=== PATIENT | female | born 1945 | race Caucasian/White ===

== ENCOUNTER → 2018-01-13 10:05 | Outpatient (CLI) | payer MEDICARE, SELFPAY ==
[2018-01-13 12:47] LABS: Abs Immature Grans 0.02 k/cumm (0.0-0.09); Absolute Basophil Count 0.03 k/cumm (0.0-0.2); Absolute Eosinophil Count 0.48 k/cumm (0.0-0.7); Absolute Lymphocyte Count 2.82 k/cumm (1.2-3.4); Absolute Monocyte Count 0.79 k/cumm (0.11-0.7); Absolute Neutrophil Count 3.36 k/cumm (1.2-6.7); Basophils % 0.4; Eosinophils % 6.4; HCT 36.7 % (36.0-46.0); HGB 12.4 g/dL (12.0-15.5); Immature Grans % 0.3; Lymphocytes % 37.6; Mean Corp. HGB Concentration 33.8 g/dL (32.0-36.0); Mean Corpuscular Hemoglobin 33.2 pg (27.0-33.0); Mean Corpuscular Volume 98.1 fL (80-95); Mean Platelet Volume 9.7 fL (8.0-11.0); Monocytes % 10.5; Neutrophils % 44.8; Platelet Count 328 x1000/uL (130-400); RBC 3.74 m/cumm (4.00-5.20); RBC Distribution Width 12.7 % (11.7-14.6)
[2018-01-13 13:28] LABS: ALT 13 U/L (12-78); AST 23 U/L (15-37); Albumin 4.6 g/dL (3.4-5.0); Alkaline Phosphatase 102 U/L (46-116); Anion Gap 8.3 mmol/L (3-11); BUN 8 mg/dL (7-18); Bilirubin, Total 0.6 mg/dL (0.2-1.0); CO2 27.7 mmol/L (21.0-32.0); CREATININE 0.67 mg/dL (0.55-1.02); Calcium 9.1 mg/dL (8.5-10.1); Chloride 93 mmol/L (98-107); Glucose 95 mg/dL (70-100); Potassium 4.9 mmol/L (3.5-5.1); Sodium 129 mmol/L (136-145); TSH 0.94 uIU/mL (0.358-3.74); Total Protein 7.4 g/dL (6.4-8.2); Vitamin B12 346 pg/mL (193-986)
[2018-01-13 13:40] LABS: ESR 6 MM/HR (0-30)
[2018-01-15 14:40] LABS: Lyme Ab w Rflx to Lyme Confirm Negative
== END ==
PROVIDERS: PCP Family Medicine; Visit Provider Family Medicine
DX: R53.83 Other fatigue (principal); R63.4 Abnormal weight loss; I10 Essential (primary) hypertension
CPT/HCPCS: 36415; 80053; 85652; 82607; 82728; 83540; 84443; 85025; 86618

== ENCOUNTER → 2018-01-20 01:38 | Outpatient (CLI) | payer MEDICARE, SELFPAY ==
--- NOTE | 2018-01-20 12:41 | SCREENCT_ITS ---
SYMPTOMS/DIAGNOSIS: ENCOUNTER FOR SCREENING, Z13.9, CURRENT SMOKER, Z87.891 CT SCAN OF THE CHEST: CT scan of the chest was performed according to the lung cancer screening protocol. There are no priors for comparison. There is atherosclerosis of the thoracic aorta, but no aneurysmal dilatation is seen. The heart size is within normal limits. There is a small pericardial effusion or pericardial thickening present. Coronary artery calcifications are present. No significant mediastinal, axillary or hilar adenopathy is seen on this noncontrast examination. No pleural effusion is identified. Moderate central lobular emphysematous changes are present in the lungs. Non noncalcified pulmonary nodules are present. No acute infiltrates are seen. The tracheobronchial tree appears grossly unremarkable. No pneumothorax is present. Degenerative changes are seen in the spine. There is a right convex scoliosis of the thoracic spine noted. Upper abdominal images show a nonobstructing stone in the upper pole of the left kidney. IMPRESSION: No pulmonary nodules identified. Category 1. Lung-RAD Category: 1- Negative Lung- RAD Management of Findings: Continue annual LDCT screening in 12 months
== END ==
PROVIDERS: PCP Family Medicine; Visit Provider Family Medicine
DX: Z12.2 Encounter for screening for malignant neoplasm of respiratory organs (principal); F17.200 Nicotine dependence, unspecified, uncomplicated
CPT/HCPCS: G0297

== ENCOUNTER 2018-02-10 02:07 | Outpatient (CLI) | payer MEDICARE, SELFPAY ==
[2018-02-10 13:16] LABS: Anion Gap 9.5 mmol/L (3-11); BUN 7 mg/dL (7-18); CO2 27.5 mmol/L (21.0-32.0); CREATININE 0.59 mg/dL (0.55-1.02); Calcium 9.3 mg/dL (8.5-10.1); Chloride 92 mmol/L (98-107); Glucose 98 mg/dL (70-100); Potassium 4.6 mmol/L (3.5-5.1); Sodium 129 mmol/L (136-145)
[2018-02-10 13:18] LABS: Bilirubin Negative (Negative); Blood Trace-lysed (Negative); Clarity Clear; Glucose Negative (Negative); Ketones Negative (Negative); Leukocyte Esterase Small (Negative); Nitrite Negative (Negative); Urobilinogen 0.2 EU/dL (Up TO 0.2)
[2018-02-10 13:28] LABS: Epithelial Cells Few HPF (Negative); RBC 0-2 (0-2); WBC 20-50 HPF (0-5)
[2018-02-10 13:29] LABS: Bacteria Few HPF (Negative); C & S Indicated? Yes; Casts Negative LPF (Negative); Crystals Negative HPF (Negative); Mucus Negative (Negative); Other Cells Moderate Renal (Negative)
[2018-02-12 08:43] LABS: Lyme Ab w Rflx to Lyme Confirm Negative
== END 2018-02-10 02:27 ==
PROVIDERS: PCP Family Medicine; Visit Provider Family Medicine
DX: R53.83 Other fatigue (principal); E87.1 Hypo-osmolality and hyponatremia
CPT/HCPCS: 36415; 80048; 81003; 81015; 86618; 87086

== ENCOUNTER 2018-10-05 08:19 | Day surgery (SDC) | payer MEDICARE, SELFPAY ==
--- NOTE | 2018-10-04 18:00 | POEE_ITS ---
History of Present Illness Chief Complaint: Progressive decreased vision, right eye Narrative: The patient is a 73-year old lady with history of progressive decreased vision in her right eye at both distance and near. She notes this has become significantly worse. On examination she was noted to have moderate nu clear and cortical cataract of the right eye with best corrected vision of 2039 with significant glare disability. 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 She is significantly symptomatic from decreased vision OD that she desires cataract surgery and attempt to improve and maximize her vision. NOTE: The Chief Complaint, HPI, Past Medical History, Past Surgical History, Family History, Social History, Medications, and complete Ophthalmic Exam with detailed Assessment and Plan have already been documented in the patient's outpatient ophthalmic record and are not covered again in detail here. [facility] Medical History Cataract (Chronic) Surgical History History of basal cell carcinoma (BCC) excision (Acute) History of esophagogastroduodenoscopy (EGD) (Chronic) History of tubal ligation (Chronic) Social History Smoking/Tobacco Use Status: Current every day Tobacco Type: cigarettes Drug use: Never Substance use type: does not use Household members: spouse and other Pets and animals: Yes Pets and animals: dog(s) What type of physical activity do you participate in: none Special lissy needs: No Do you feel safe at home: Yes Do you feel safe in your relationship?: Yes Meds Home Medications Medication Instructions Recorded Confirmed Type acetaminophen [Mapap Extra 1 tab PRN PRN 09/06/14 10/01/18 History Strength] lisinopril 10 mg PO DAILY #90 tab-cap 07/03/17 10/01/18 Rx lutein mg PO DAILY 10/01/18 History Allergies Allergy/AdvReac Type Severity Reaction Status Date / Time Penicillins Allergy Unknown Unverified 10/01/18 13:04 Exam OCULAR EXAM:: Most recent ocular examination is significant for best corrected vision of 20/40 OD, 20/400 OS. Intraocular pressure is 12 OD, 13 OS. Extraocular motility is normal. Slit-lamp examination is significant for pupils dilating to 5.5 mm OU. 2+ nuclear/cortical cataract OU. Dilated funduscopic examination shows disc cupping of 0.2 OD 0.1 OS with normal vessels. Macular drusen are present OU. There is scarring and atrophy of the superior central macula in the left eye. Peripheral retina and vitreous is normal. BRIGHTNESS ACUITY TESTING (BAT):: Brightness acuity testing of the right eye office 20/40. On the low setting is 20/60. On the medium setting is 20/200. On the high setting is less than 20/400. Assessment and Plan (1) Nuclear sclerotic cataract of right eye: Current visit: No Status: Acute Assessment: Visually significant cataract, right eye. Plan: Cataract extraction with intraocular lens implantation, right eye (2) Cortical cataract of right eye: Current visit: No Status: Acute Assessment: Visually significant cataract, right eye. Plan: Cataract extraction with intraocular lens implantation, right eye Note: NOTE:: The details of the planned surgery, including the risks, indications,limitations,expectations,outcome and possible complications were explained to the patient. The patient understands the complications including, but not limited to: infection, hemorrhage, posterior dislocation of the lens or nuclear fragments which may require the intervention of a vitreoretinal surgeon, possible loss of the eye, or from anesthetic complications. The patient has been made aware of the option of not having surgery, that vision following surgery may not be equal to that prior to surgery, and that the planned surgery may not achieve the intended results. Following this discussion, which the patient appeared to understand, the patient wishes to proceed with cataract surgery with lens implantation of the affected eye to improve and maximize vision.
--- NOTE | 2018-10-05 07:22 | W.PM.DSUDISC ---
Discharge Plan Disposition Patient Disposition: HOME Condition: Stable Discharge Details Attending Provider: Danny Mac Primary Care Provider: Savannah Baez Home Meds and New Rx's Prescriptions: No Action lisinopril 10 MG tablet 10 mg PO DAILY Qty: 90 RF: 4 acetaminophen [Mapap Extra Strength] 500 MG tablet 1 tab PRN PRNRF: 0 lutein 6 mg Capsule PO DAILY RF: 0 Discharge Instructions Stand Alone Forms: Post-op Topical Cataract, Kelsey Spicer (DSU) Discharge Orders Discharge Orders: Discharge Order (Routine); Ordered 10/05/18 Ordered By: Danny Mac DS: Diagnosis Discharge Diagnosis (1) Nuclear sclerotic cataract of right eye: Status: Resolved (2) Cortical cataract of right eye: Status: Resolved (3) Status post cataract extraction and insertion of intraocular lens of right eye: Status: Chronic
--- NOTE | 2018-10-05 07:23 | W.PM.OP ---
Date of service: 10/05/18 Time of Service: 10:23 Operative Note PRE-OP DIAGNOSIS: Cataract, right eye PROCEDURE: Cataract extraction using phacoemulsification with intraocular lens implant, right eye SURGEON: Danny Mac ANESTHESIA: MAC and local (sub-tenon's anesthetic infiltration) ESTIMATED BLOOD LOSS: 0 PATHOLOGY: none sent COMPLICATIONS: None Patient was transported to: same day Patient's condition: stable Implants: Eleazar and [employer] / [employer] Tecnis [id number] intraocular lens Indications: Progressive decreased vision due to cataract, right eye Procedure Description: CATARACT SURGERY OPERATIVE REPORT PREOPERATIVE DIAGNOSIS: Nuclear/cortical cataract, right eye POSTOPERATIVE DIAGNOSIS: Same OPERATION: Cataract extraction using phacoemulsification with posterior chamber intraocular lens implant, right eye. IOL: IOL Patternmaker Helper/Model: [employer] / DAVID Tecnis ZCB00 IOL Power: + 22.0 diopters IOL Serial Number: [id number] Optic Diameter: 6.0mm Haptic/Overall Diameter: 13.0mm PHACO INFO: Nicolás [employer] Vision System with OZil and Active Fluidics Cumulative Dispersed Energy (CDE): 13.01 seconds SURGEON: Danny Mac MD, [place] ANESTHESIA: Monitored Anesthesia Care (MAC), with local sub-tenon's anesthetic infiltration COMPLICATIONS: None SPECIMENS: None INDICATIONS FOR PROCEDURE: The patient is a 73-year-old lady with history of diminished visual acuity in her right eye secondary to the development of nuclear and cortical cataract. She has poor central visual acuity in her left eye secondary to branch vein occlusion/macular edema with central macular scar. The option of cataract surgery in her right eye was offered to the patient and she wished to proceed. PROCEDURE: The correct surgical eye was identified and marked as the right eye and the pupil was dilated in the preoperative area using mydriatics and cycloplegics. The dilated pupil size was 7.0 mm. No sedation was given, per patient preference. The patient was brought to the operating room where cardiopulmonary monitoring was instituted and surgical time-out was performed, confirming the correct operative eye and IOL power. Topical anesthesia was administered and ophthalmic povidone-iodine 5% was instilled into the conjunctival fornices. Lidocaine gel was applied to the cornea and the madisyn-ocular area was prepped with Betadine 10% solution and draped in the usual sterile fashion for intraocular surgery, including an aperture drape. A Tegaderm transparent film dressing was cut in half and used to cover the lashes and lid margins. Care was taken to sequester the lashes and lid margins under the Tegaderm dressing. A lid speculum was placed between the lids of the operative eye and the Bryce-Nima operating microscope was maneuvered into position. Shannan scissors were then used to make a conjunctival buttonhole approximately 6mm posterior to the limbus in the inferonasal quadrant. Blunt dissection was carried out to expose bare sclera, and a blunt-tipped sub-tenon?s anesthesia cannula was introduced and passed posteriorly along the globe where non-preserved plain lidocaine was injected into posterior sub-Tenon?s space. A sideport knife was used to make a paracentesis port inferiortemporally, and the anterior chamber was filled with Healon GV. A 2.4mm keratome knife was used to create a half-thickness groove at the limbus and then to construct a three-plane near-clear corneal tunnel extending 2.0mm into clear cornea in the superiortemporal position. . A flap was raised on the anterior capsule and capsulorhexis forceps were used to complete a continuous curvilinear capsulorhexis of 5.0 mm. Balanced salt solution was then used to perform cortical cleaving hydrodissection and nuclear hydrodelineation until the lens could be freely rotated within the capsular bag. The lens nucleus was then disassembled and removed within the capsular bag and iris plane using phacoemulsification. Residual cortical material was removed using the I/A handpiece. The posterior capsule was carefully polished to remove as much residual lens epithelial cells as safely possible. The capsular bag was then inflated and the anterior chamber deepened with viscoelastic. The lens implant described above was inserted into the capsular bag using the DAVID [place] Injector. A Kuglen hook was used to dial the IOL into position. Residual viscoelastic was then removed first from posterior to the IOL, then from the anterior chamber using the I/A handpiece. The lens implant was noted to center nicely within the capsular bag. The incisions were stromally hydrated, and the anterior chamber was reformed using BSS. Then 0.4cc of moxifloxacin 1.5mg/ml were injected into the capsular bag and anterior chamber. The incisions were checked with a Weck spear and found to be secure. Several drops of ophthalmic povidone-iodine 5% were then applied to the eye followed by two drops of Imprimis combination prednisolone/gatifloxacin/bromfenac solution. The drapes were removed and a clear plastic protective eye shield was placed over the eye. The patient was then returned to [facility] in stable condition.
[2018-10-05 08:35] VITALS: BP 141/76; PULSE 82; RESP 18; TEMP 35.6; O2SAT 94
[2018-10-05] MEDS: Tropicam./Phenyleph. (1/2.5%) 5 ML BTL OD ×3 (08:53→09:01)
[2018-10-05] MEDS: Tetracaine 0.5% 4 ML BTL OD ×4 (08:54→09:47)
[2018-10-05] MEDS: Povidone-Iodine Ophth 30 ML BTL ×2 (09:47→10:15)
[2018-10-05] MEDS: Lidocaine 2% Jelly 6 ML SYR (09:47)
[2018-10-05] MEDS: Balanced Salt Soln.-PLUS 500 ML BAG (09:54)
[2018-10-05] MEDS: Lidocaine 1% Pres-Free 5 ML VIAL (09:55)
== END 2018-10-05 11:00 | disposition home or self-care (01) ==
LOC: SUR 08:19
PROVIDERS: PCP Family Medicine; Visit Provider Ophthalmology
PROC: (CPT 66984; principal; 2018-10-05 10:30)
DX: H25.811 Combined forms of age-related cataract, right eye (principal); I10 Essential (primary) hypertension; F17.210 Nicotine dependence, cigarettes, uncomplicated
CPT/HCPCS: 66984; V2632

== ENCOUNTER 2019-01-19 01:25 | Outpatient (CLI) | payer MEDICARE, SELFPAY ==
[2019-01-19 12:33] LABS: Absolute Basophil Count 0.03 k/cumm (0.0-0.2); Basophils % 0.5; Mean Corp. HGB Concentration 34.9 g/dL (32.0-36.0); Monocytes % 9.8
[2019-01-19 13:09] LABS: Abs Immature Grans 0.01 k/cumm (0.0-0.09); Absolute Eosinophil Count 0.07 k/cumm (0.0-0.7); Absolute Lymphocyte Count 2.57 k/cumm (1.2-3.4); Absolute Monocyte Count 0.65 k/cumm (0.11-0.7); Eosinophils % 1.1; HCT 37.3 % (36.0-46.0); Immature Grans % 0.2; Lymphocytes % 38.8; Mean Corpuscular Volume 97.6 fL (80-95); Mean Platelet Volume 9.7 fL (8.0-11.0); Neutrophils % 49.6; Platelet Count 375 x1000/uL (130-400); RBC 3.82 m/cumm (4.00-5.20); RBC Distribution Width 11.3 % (11.7-14.6); White Blood Cell Count 6.62 k/cumm (4.4-10.8)
[2019-01-19 13:10] LABS: Absolute Neutrophil Count 3.28 k/cumm (1.2-6.7)
[2019-01-19 13:33] LABS: Iron 140 ug/dL (50-175); Total Iron Binding Capacity 324 ug/dL (250-450); Transferrin Sat 43 % (15-50)
[2019-01-19 13:43] LABS: Bilirubin Negative (Negative); Blood Trace-intact (Negative); Clarity Clear (Clear); Glucose Negative (Negative); Ketones Negative (Negative); Leukocyte Esterase Small (Negative); Nitrite Negative (Negative); Urobilinogen 0.2 EU/dL (Up TO 0.2); pH 5.5 (5-8)
[2019-01-19 14:11] LABS: ALT 16 U/L (14-59); AST 20 U/L (15-37); Albumin 4.5 g/dL (3.4-5.0); Alkaline Phosphatase 76 U/L (46-116); Anion Gap 10.2 mmol/L (3-11); BUN 7 mg/dL (7-18); Bilirubin, Total 0.5 mg/dL (0.2-1.0); CO2 26.8 mmol/L (21.0-32.0); CREATININE 0.64 mg/dL (0.55-1.02); Calcium 9.5 mg/dL (8.5-10.1); Chloride 90 mmol/L (98-107); Ferritin 289 ng/mL (8-388); Folate 13.6 ng/mL (8.6-20.0); Glucose 119 mg/dL (70-100); Potassium 4.5 mmol/L (3.5-5.1); Sodium 127 mmol/L (136-145); Total Protein 7.4 g/dL (6.4-8.2); Vitamin B12 300 pg/mL (193-986)
[2019-01-19 14:35] LABS: Epithelial Cells Many HPF (Negative); Other Cells Mod Transitional (Negative); RBC 0-2 (0-2); WBC 20-50 HPF (0-5)
[2019-01-19 14:36] LABS: Bacteria Many HPF (Negative); C & S Indicated? No/Sq. Contamination; Casts Negative LPF (Negative); Crystals Negative HPF (Negative); Mucus Trace (Negative)
[2019-01-20 13:57] LABS: Albumin 66.8 % (55.8-66.1); Total Protein 7.5 g/dl (6.3-8.2)
== END 2019-01-19 01:45 ==
PROVIDERS: PCP Family Medicine; Visit Provider Family Medicine
DX: D75.89 Other specified diseases of blood and blood-forming organs (principal); C44.311 Basal cell carcinoma of skin of nose; R42 Dizziness and giddiness; G62.9 Polyneuropathy, unspecified; R63.4 Abnormal weight loss; I10 Essential (primary) hypertension; R71.8 Other abnormality of red blood cells
CPT/HCPCS: 36415; 80053; 81003; 81015; 82607; 82728; 82746; 83540; 83550; 84165; 85025

== ENCOUNTER 2019-04-15 12:16 | Emergency (ER) | payer MEDICARE, SELFPAY ==
[2019-04-15 12:24] VITALS: BP 161/62; PULSE 84; RESP 16; TEMP 36.2; O2SAT 97
--- NOTE | 2019-04-15 13:02 | DI.RAD_ITS ---
EXAM: XR LUMBAR SPINE COMPLETE INDICATION: pain, lower back r/o compression fracture. COMPARISON: CHEST - LUNG CANCER SCREENING from 01/20/2018 TECHNIQUE: 2D digital imaging was performed. FINDINGS: There is extensive atherosclerosis of the abdominal aorta. There are superior compression deformities of the L1, L2, and L3 vertebral bodies. These are age ind eterminate. There is scoliosis of the thoracolumbar spine. No spondylolysis or spondylolisthesis is seen. The sacrum is not well visualized due to overlying bowel. There are mild degenerative change s in the lumbar spine. IMPRESSION: 1. Compression deformities involving the superior endplates of L1, L2 and L3. These are age indeterm inate. 2. Mild degenerative changes are seen in the lumbar spine.
[2019-04-15] MEDS: Acetaminophen 500 MG TAB 1000 MG PO (13:10)
[2019-04-15 13:26] LABS: Bilirubin Negative (Negative); Blood Trace-intact (Negative); Clarity Clear (Clear); Glucose Negative (Negative); Ketones 15 mg/dL (Negative); Leukocyte Esterase Negative (Negative); Nitrite Negative (Negative); Urobilinogen 0.2 EU/dL (Up TO 0.2); pH 5.5 (5-8)
[2019-04-15 13:41] LABS: Bacteria Few HPF (Negative); C & S Indicated? No; Casts Negative LPF (Negative); Crystals Negative HPF (Negative); Epithelial Cells Moderate HPF (Negative); Mucus Trace (Negative); Other Cells Few Transitional (Negative); WBC 0-2 HPF (0-5)
--- NOTE | 2019-04-15 15:40 | ED.GENADUL_ITS ---
Discharge Plan Disposition Patient Disposition: HOME Condition: Good Discharge Details Chief Complaint: Nk/Back Pain Clinical Impression: Compression fracture Primary Care Provider: Savannah Baez ED Provider: Sivan Avila Home Meds and New Rx's Prescriptions: New diazepam [Valium] 2 mg tablet 2 mg PO TID PRN (Reason: muscle relaxant) Qty: 10 RF: 0 No Action lisinopril 10 mg tablet 10 mg PO DAILY Qty: 90 RF: 4 acetaminophen [Mapap Extra Strength] 500 MG tablet 1 tab PRN PRNRF: 0 lutein 6 mg Capsule PO DAILY RF: 0 Discharge Instructions Additional Instructions: Ice to the area of discomfort. Use abdominal binder for discomfort. Tylenol for soreness if needed. Use muscle relaxant as prescribed with significant caution. Do not mix with alcohol, drive while taking this medication. Recheck with primary care doctor promptly for reevaluation. Follow-up with orthopedic doctor as discussed. Return for any worsening or concerns sooner if needed Referrals: Amando Curry MD [ [facility] STAFF PHYSICIAN] - Discharge Data Discharge Date/Time-TO BE ENTERED AT DEPARTURE: 04/15/19 15:52 Medical Decision Making 73-year-old patient who presents for complaints of back pain. Patient reports no specific injury or trauma. Patient cannot recall the initial onset of back pain after discussion with both daughter and patient she feels likely patient reports approximately 1 month of back pain. Patient denies any radiating pain into the legs or the groin. Patient complains only of back pain in the lumbar spine area bilaterally. Patient is noted to be moderately kyphotic. Patient is a thin petite woman. Again patient denies any obvious injury or fall. Patient denies any head or neck pain associated. Denies any fevers or chills. No u rinary complaints. No fevers or ill feeling. Patient reports normal energy otherwise. She has tried [id number] medications without relief. Patient reports a position of comfort is standing. Patient will and is able to find a position of comfort in bed however patient reports regular position changes causing difficulty sleeping. Patient does report she notices an increase in pain with change of position and range of motion. Patient denies any red flags of back pain specifically no numbness, tingling or weakness of the lower extremities. Patient does report onset of pain which did somewhat improved over several weeks and she coughed which she noted an immediate onset of return of pain in a similar distribution in the lower back. Patient describes a spastic type pain after coughing which has persisted for the last 1 to 2 weeks. X-ray of the L-spine ordered specifically to rule out compression fracture. Patient agrees with this plan of care. Xray reveals FINDINGS: There is extensive atherosclerosis of the abdominal aorta. There are superior compression deformities of the L1, L2, and L3 vertebral bodies. These are age indeterminate. There is scoliosis of the thoracolumbar spine. No spondylolysis or spondylolisthesis is seen. The sacrum is not well visualized due to overlying bowel. There are mild degenerative changes in the lumbar spine. IMPRESSION: 1. Compression deformities involving the superior endplates of L1, L2 and L3. These are age indeterminate. 2. Mild degenerative changes are seen in the lumbar spine. Spoke with Dr. Amando Curry who recommends abdominal binder, okay with muscle relaxant, will follow up with patient as an outpatient. Also recommended recheck with PCP for possible interventional radiology referral to [facility]. Patient feels comfortable plan of care. Discussed use of muscle relaxant which patient prefers. 2 mg of Valium was prescribed in small quantity. [id number] Tylenol also recommended. Conservative treatments were discussed. Follow-up with orthopedics was discussed. Alarming signs and symptoms for return were discussed. The patient was stable and requested discharge. Prior to discharge, my usual and customary return precautions were reviewed with the patient - this included follow-up instructions and reasons to return to the Emergency Department if conditions worsens, does not improve as expected, or other new concerns arise. HPI General Date/Time Provider Initiated Documentation: 04/15/19 12:20 . HPI Narrative: Is an extremely pleasant 73-year-old woman who is accompanied by her daughter who complains of 1 month of lower back pain. Patient denies any specific injury, traumas or falls. Patient reports history of back pain which typically relieves with rest. Has not experienced back pain in quite some time then noted in the last month onset of back pain. No radiating pain into the legs. No numbness, tingling or weakness. Patient has been eating and drinking without difficulty. Patient denies any urinary urgency, frequency or dysuria. Denies headache or dizziness, chest pain or difficulty breathing. Denies any abdominal pain associated. No change in bowels. No change in appetite or energy. Position of comfort is standing. Patient is able to find a comfortable position specifically when laying on her side however pain is worse with change in position or range of motion. Unrelieved with Tylenol [id number]. Patient reports she initially had pain in her lower back which somewhat improved over the course of 2 weeks then she reports coughing and back pain became significantly worse. Patient reports she felt her back spasm. Related Data Home Medications Medication Instructions Recorded Confirmed acetaminophen [Mapap Extra 1 tab PRN PRN 09/06/14 04/15/19 Strength] lutein mg PO DAILY 10/01/18 01/14/19 lisinopril 10 mg tablet 10 mg PO DAILY #90 tab-cap 10/13/18 04/15/19 diazepam [Valium] 2 mg PO TID PRN #10 tab 04/15/19 Previous Rx's Medication Instructions Recorded lisinopril 10 mg tablet 10 mg PO DAILY #90 tab-cap 10/13/18 diazepam [Valium] 2 mg PO TID PRN #10 tab 04/15/19 Allergies Allergy/AdvReac Type Severity Reaction Status Date / Time Penicillins Allergy Unknown Unverified 04/15/19 12:27 General Stated Complaint: Nk/Back Pain FRANCISCA: 3 Review of Systems All systems reviewed & are unremarkable except as noted in HPI and below Constitutional Constitutional: Denies chills, Denies fatigue, Denies fever(s), Denies frequent falls, Denies headache(s) and Denies malaise ENT Ears, Nose, Mouth, and Throat: Denies headache(s) Respiratory Respiratory: Denies cough Gastrointestinal Gastrointestinal: Denies abdominal pain, Denies nausea and Denies vomiting Musculoskeletal Musculoskeletal: Denies abnormal gait, Reports back pain, Denies numbness and Denies tingling Neurologic Neurologic: Denies abnormal gait, Denies frequent falls, Denies headache(s), Denies numbness and Denies tingling Endocrine Endocrine: Denies fatigue [facility] Medical History Cataract (Chronic) Social History Smoking/Tobacco Use Status: Current every day Tobacco Type: cigarettes Drug use: Never Substance use type: does not use Household members: spouse and other Pets and animals: Yes Pets and animals: dog(s) What type of physical activity do you participate in: none Special lissy needs: No Do you feel safe at home: Yes Do you feel safe in your relationship?: Yes Exam Narrative Exam Narrative: CONST: Healthy appearing kyphotic patient, in no acute distress. Well hydrated. Alert and alert. NECK: Normal visual inspection. FROM. No lymphadenopathy. Trachea midline. No Midline tenderness. CHEST: Normal insepection of the chest. RESP: Normal respiratory effort. Speaking full sentences. No cough. No wheezing. No retractions. Clear to auscaltation. Breath sound equal and present bilaterally. CARDIO: No JVD. Normal PMI. Regular Rate. Regular Rhythm. Normal peripheral pulses. GI: Normal inspection of abdomen. No distension. Soft. Nontender. Bowel sounds present in all 4 quadrants. No rebound. No gaurding. MUSCULOSKELETAL: Normal Gait. FROM of all extremities. Distal neurovascularly intact. Sensation intact distally. DTRs intact and equal bilaterally. Strength intact. No foot drop bilaterally. Back: No cervical or thoracic pain with palpation. No significant palpable tenderness of the lumbar spine. No obvious step-offs. Obvious kyphosis noted. Patient points to the areas of bilateral lower back as sites of pain but no associated palpable tenderness. SKIN: Normal. Dry. No rashes. NEURO: Alert and awake. Speech clear. PSYCH: Normal affect. Cooperative. Course Vital Signs Vital signs: Vital Signs Temperature 36.2 C L 04/15/19 12:24 Pulse 84 04/15/19 12:24 Respiratory Rate 16 04/15/19 12:24 Blood Pressure 161/62 H 04/15/19 12:24 Pulse Oximetry 97 04/15/19 12:24 Temperature 36.2 C L 04/15/19 12:24 Temperature Source Skin 04/15/19 12:24 Pulse 84 04/15/19 12:24 Respiratory Rate 16 04/15/19 12:24 Respiratory Effort Non-Labored 04/15/19 12:24 Blood Pressure 161/62 H 04/15/19 12:24 Blood Pressure Position Sitting 04/15/19 12:24 Pulse Oximetry 97 04/15/19 12:24 Oxygen Delivery Method Room Air 04/15/19 12:24 Oxygen Flow Rate 0 04/15/19 12:24 Pain Level 10 04/15/19 12:49 Lab/Test Results Lab/Test Results: Laboratory Tests Range/Units 04/15/19 13:13 Urine Color (Yellow) Yellow Urine Clarity (Clear) Clear Urine pH (5-8) 5.5 Ur Specific [place] (1.005-1.025) 1.020 Urine Protein (Negative) mg/dL Trace H Urine Ketones (Negative) mg/dL 15 H Urine Blood (Negative) Trace-intact H Urine Nitrite (Negative) Negative Urine Bilirubin (Negative) Negative Urine Urobilinogen (Up TO 0.2) EU/dL 0.2 Ur Leukocyte Esterase (Negative) Negative Urine RBC (0-2) HPF 3-5 H Urine WBC (0-5) HPF 0-2 Ur Epithelial Cells (Negative) HPF Moderate Urine Crystals (Negative) HPF Negative Urine Bacteria (Negative) HPF Few Urine Casts (Negative) LPF Negative Urine Mucus (Negative) Trace Urine Other (Negative) Few transitional Ur Culture Indicated? No Urine Glucose (Negative) mg/dL Negative
--- NOTE | 2019-04-15 15:52 | NUR.NOTE ---
Nursing Note: abdominal binder applied per verbal order. explained use to pt.
--- NOTE | 2019-04-15 16:40 | NUR.NOTE ---
Nursing Note: Referral faxed to PCP for follow up. Norma bardales
== END 2019-04-15 15:52 | disposition home or self-care (01) ==
PROVIDERS: Emergency Provider Physician Assistant; PCP Family Medicine
DX: M48.56XA Collapsed vertebra, not elsewhere classified, lumbar region, initial encounter for fracture (principal)
CPT/HCPCS: 99283; 72110; 81003; 81015

== ENCOUNTER 2019-05-10 01:02 | Outpatient (CLI) | payer MEDICARE, SELFPAY ==
--- NOTE | 2019-05-10 15:23 | DI.MRI_ITS ---
EXAM: MR LUMBAR SPINE WO CLINICAL HISTORY: severe low back pain/ vertebral fx L1 L2 L3 ? [age] TECHNIQUE: Multiplanar multisequence MRI was performed. COMPARISON: RENAL COLIC WO CONTRAST from 01/07/2011 XR LUMBAR SPINE COMPLETE from 04/15/2019 FINDINGS: There is mild compression of the inferior endplate of T11. There is a mild compression fracture of t he superior endplate of T12. The L1 vertebral body shows an incidental cyst. There is a mild compre ssion fracture of the superior endplate of L2. There is mild to moderate compression of the central aspect of the L3 vertebral body. L4 appears intact. There is minimal compression of the superior en dplate of L5. There is mildly increased signal in the region of the compression fractures, indicatin g subacute fractures. The discs are well maintained in height. There is no central canal stenosis o r neural foraminal narrowing. The conus medullaris appears normal. There is mild scoliosis. IMPRESSION: Multiple mild compression fractures, all of which appear subacute. The greatest compression is seen at the superior endplate centrally at L3.
== END 2019-05-10 01:22 ==
PROVIDERS: PCP Family Medicine; Visit Provider Family Medicine
DX: M54.5 Low back pain (principal); M48.55XA Collapsed vertebra, not elsewhere classified, thoracolumbar region, initial encounter for fracture
CPT/HCPCS: 72148

== ENCOUNTER 2020-03-26 15:16 | Inpatient (IN) | payer MEDICARE, SELFPAY ==
[2020-03-26] VITALS (73 sets, daily range): BP systolic 104–166; BP diastolic 39–88; PULSE 81–106; RESP 9–28; TEMP 36.7–37.1; O2SAT 89–97
--- NOTE | 2020-03-26 | DI.CT_ITS ---
EXAM: CT LOWER EXTREMITY LT WO CLINICAL HISTORY: femoral fracture, pain. TECHNIQUE: Imaging Protocol: Axial computed tomography images with coronal and sagittal reformatted images were created and reviewed. CONTRAST MATERIAL: Intravenous: No Oral: No COMPARISON: CR,XR XR KNEE LT 4V AP,LAT,ARIELA,PAT from 03/26/2020 FINDINGS: Bones: There is again seen an oblique fracture extending from the lateral metaphysis of the distal f emur into the intercondylar notch. The lateral femoral condyle is displaced approximately 8 mm later ally. There is a moderate lipohemarthrosis. There is diffuse soft tissue swelling about the left kn ee. Bones are osteopenic. No other fracture or dislocation is present. There is chondrocalcinosis present. Soft Tissues: There is atherosclerosis. IMPRESSION: Acute intercondylar fracture with lateral displacement of the lateral femoral condyle of the left fem ur. Lipohemarthrosis and diffuse soft tissue swelling. RADIATION DOSE DELIVERED: Total DLP DATA REPOSITORY: All CT scans at this facility are submitted to the National Radiology Data Registry (NRDR) Dose Index Registry (DIR) with the [employer] (ACR). RADIATION OPTIMIZATION: All CT scans at this facility use at least one of these dose optimization te chniques: automated exposure control; mA and/or kV adjustment per patient size (includes targeted exa ms where dose is matched to clinical indication); or iterative reconstruction. -- EXAM: CT LOWER EXTREMITY LT WO CLINICAL HISTORY: femoral fracture, pain. TECHNIQUE: Imaging Protocol: Axial computed tomography images with coronal and sagittal reformatted images were created and reviewed. CONTRAST MATERIAL: Intravenous: No Oral: No COMPARISON: CR,XR XR KNEE LT 4V AP,LAT,ARIELA,PAT from 03/26/2020 FINDINGS: Bones: There is again seen an oblique fracture extending from the lateral metaphysis of the distal f emur into the intercondylar notch. The lateral femoral condyle is displaced approximately 8 mm later ally. There is a moderate lipohemarthrosis. There is diffuse soft tissue swelling about the left kn ee. Bones are osteopenic. No other fracture or dislocation is present. There is chondrocalcinosis present. Soft Tissues: There is atherosclerosis.
[2020-03-26] MEDS: fentaNYL 100 MCG/2 ML VIAL 50 MCG IVP (15:29)
[2020-03-26 15:38] LABS: Abs Immature Grans 0.07 10^3/uL (0.0-0.06); Absolute Monocyte Count 1.13 10^3/uL (0.1-0.8); Absolute Neutrophil Count 13.33 10^3/uL (1.2-6.7); Basophils % 0.3; Eosinophils % 0.1; HCT 30.4 % (36.0-46.0); HGB 10.6 g/dL (11.2-15.7); Immature Grans % 0.4; Lymphocytes % 6.8; MCH 33.8 pg (27.0-33.0); MCHC 34.9 % (32.0-36.0); MCV 96.8 fL (80-95); Monocytes % 7.2; Neutrophils % 85.2; Nucleated RBC 0 %; Platelet Count 285 10^3/uL (130-400); RBC 3.14 10^6/uL (3.93-5.22); RDW 11.5 % (11.7-14.6); WBC 15.65 10^3/uL (4.4-10.8)
[2020-03-26 15:39] LABS: Absolute Basophil Count 0.05 10^3/uL (0.0-0.2); Absolute Eosinophil Count 0.02 10^3/uL (0.0-0.7); Absolute Lymphocyte Count 1.06 10^3/uL (1.2-3.4)
--- NOTE | 2020-03-26 15:42 | ED.GENADUL_ITS ---
Discharge Plan Disposition Patient Disposition: [facility] INPATIENT Condition: Serious Discharge Details Clinical Impression: Lesion of nose, Fracture of femoral condyle, left, closed, Fracture of femoral condyle, right, closed, Hyponatremia Primary Care Provider: Savannah Baez ED Provider: Chip Bang Home Meds and New Rx's Prescriptions: No Action calcium carbonate [Calcium 600] 600 mg calcium (1,500 mg) tablet 600 mg PO BID Qty: 90 RF: 0 cholecalciferol (vitamin D3) 2,000 unit tablet,chewable 2,000 unit PO DAILY Qty: 90 RF: 0 alendronate 70 mg tablet 70 mg PO QWEEK Qty: 12 RF: 4 acetaminophen [Mapap Extra Strength] 500 mg tablet 500 mg PO TID PRNRF: 0 meloxicam 7.5 mg tablet 7.5 mg PO DAILY PRN (Reason: back pain) Qty: 30 RF: 1 lisinopril 10 mg tablet 10 mg PO DAILY Qty: 90 RF: 4 lutein 6 mg Capsule PO DAILY RF: 0 Medical Decision Making 8??74-year-old female presents after mechanical trip and fall with bilateral knee pain. Patient has bilateral anterior knee tenderness. She is currently holding her knees slightly flexed and pain is worse with attempted extension. No tenderness distal femur. Neurovascular intact distally. Concern for fracture. Will obtain x-ray imaging. IV was established and patient was given fentanyl 50 mcg IV. Patient reassessed and continued to have pain although slightly improved. Dilaudid 0.5 mg IV was ordered. Patient has a concerning skin lesion on her nose that will require dermatologic follow-up. I did discuss this with the patient. 1703 --x-ray of the right knee was reviewed and interpreted by me: Femoral condyle fracture. X-ray of the left knee was reviewed and interpreted by me: Femoral condyle fracture. I called and spoke with Dr. Phillips, discussed ED presentation and course including diagnostic labs and imaging, he will admit the patient to his service and request bridging orders be placed to the floor with n.p.o. after midnight. Lab Data Lab results reviewed: Yes I reviewed the patient's lab results. Labs: Laboratory Tests Range/Units 03/26/20 03/26/20 03/26/20 15:35 15:35 15:35 WBC (4.4-10.8) 10^3/uL 15.65 H RBC (3.93-5.22) 10^6/uL 3.14 L Hgb (11.2-15.7) g/dL 10.6 L Hct (36.0-46.0) % 30.4 L MCV (80-95) fL 96.8 H MCH (27.0-33.0) pg 33.8 H MCHC (32.0-36.0) % 34.9 RDW (11.7-14.6) % 11.5 L Plt Count (130-400) 10^3/uL 285 MPV (8.0-11.0) fL 9.0 Immature Gran % 0.4 Neutrophils % 85.2 Lymphocytes % 6.8 Monocytes % 7.2 Eosinophils % 0.1 Basophils % 0.3 Nucleated RBC % % 0 Absolute Neutrophils (1.2-6.7) 10^3/uL 13.33 H Absolute Lymphocytes (1.2-3.4) 10^3/uL 1.06 L Absolute Monocytes (0.1-0.8) 10^3/uL 1.13 H Absolute Eosinophils (0.0-0.7) 10^3/uL 0.02 Absolute Basophils (0.0-0.2) 10^3/uL 0.05 PT (9.3-11.0) sec 11.0 INR (0.9-1.1) 1.1 APTT (21.0-27.8) sec 23.9 Sodium (136-145) mmol/L 125 L Potassium (3.5-5.1) mmol/L 4.0 Chloride (98-107) mmol/L 90 L Carbon Dioxide (21.0-32.0) mmol/L 27.3 Anion Gap (3-11) mmol/L 7.7 BUN (7-18) mg/dL 14 Creatinine (0.55-1.02) mg/dL 0.60 Estimated GFR/1.73 m2 (mL/min/1.73m2) >= 60.00 Glucose (74-106) mg/dL 121 H Calcium (8.5-10.1) mg/dL 9.2 HPI General Mode of arrival: EMS . Date/Time Provider Initiated Documentation: 03/26/20 15:18 . Limitations to Documentation: no limitations . Information obtained by: EMS . HPI Narrative: 74-year-old female presents with chief complaint of knee pain. Patient notes she tripped and fell on a step and landed on her knees bilaterally. She has had bilateral knee pain since the fall. Pain is moderate to severe and worse with any movement of her knees. Pain localized to anterior knees bilaterally. No associated numbness or tingling. No other injury. Related Data Home Medications Medication Instructions Recorded Confirmed lutein mg PO DAILY 10/01/18 07/29/19 acetaminophen 500 mg tablet 500 mg PO TID PRN tab 06/20/19 07/29/19 alendronate 70 mg tablet 70 mg PO QWEEK #12 tab 07/29/19 07/29/19 calcium carbonate 600 mg calcium 600 mg PO BID #90 tab 07/29/19 07/29/19 (1,500 mg) tablet cholecalciferol (vitamin D3) 50 2,000 unit PO DAILY #90 tab 07/29/19 07/29/19 mcg (2,000 unit) chewable tablet meloxicam 7.5 mg tablet 7.5 mg PO DAILY PRN #30 tab 08/03/19 lisinopril 10 mg tablet 10 mg PO DAILY #90 tab-cap 01/10/20 Previous Rx's Medication Instructions Recorded alendronate 70 mg tablet 70 mg PO QWEEK #12 tab 07/29/19 calcium carbonate 600 mg calcium 600 mg PO BID #90 tab 07/29/19 (1,500 mg) tablet cholecalciferol (vitamin D3) 50 2,000 unit PO DAILY #90 tab 07/29/19 mcg (2,000 unit) chewable tablet meloxicam 7.5 mg tablet 7.5 mg PO DAILY PRN #30 tab 08/03/19 lisinopril 10 mg tablet 10 mg PO DAILY #90 tab-cap 01/10/20 Allergies Allergy/AdvReac Type Severity Reaction Status Date / Time lorazepam Allergy Severe Visual Verified 07/29/19 09:56 Disturbances Penicillins Allergy Unknown Unverified 07/29/19 09:56 General Stated Complaint: Orthopedic FRANCISCA: 3 Review of Systems All systems reviewed & are unremarkable except as noted in HPI and below Musculoskeletal Musculoskeletal: Reports as per HPI Integumentary/Breasts Comments: Skin lesion on nose times months [facility] Medical History (Updated 03/26/20 @ 17:07 by Chip Bang MD) Cataract Surgical History History of basal cell carcinoma (BCC) excision History of esophagogastroduodenoscopy (EGD) History of tubal ligation Family History Grandfather Myocardial infarction Mother Alcohol abuse Father No problems noted. Son No problems noted. Son No problems noted. Daughter No problems noted. Daughter No problems noted. 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 [employer] Pets and animals: Yes Pets and animals: dog(s) What is your relationship status?: Panel score (0-1 are the most socially isolated patients): 1 What type of physical activity do you participate in: none Special lissy needs: No Do you feel safe at home: Yes Do you feel safe in your relationship?: Yes Exam Const General: cooperative and no acute distress HENMT Head: normocephalic and atraumatic Mouth: moist mucous membranes Eyes Conjunctivae: normal conjunctivae Sclera: normal sclerae Neck Neck: full ROM, supple and nontender Resp Auscultation: clear to auscultation bilaterally, no rales, no rhonchi and no wheezes Cardio Jugular venous pressure: no JVD Rate: regular rate and not tachycardic Rhythm: regular rhythm GI Palpation: soft, not firm, no guarding, no masses, not rigid and nontender Skin Lesions: lesion noted (Ulcerated lesion on nose) Neuro General: patient alert, patient awake, patient oriented x3 and tone normal Extrem General: edema and other (Knee is held in flexion and unable to extend secondary to pain) Right lower extremity: knee Details: tenderness Location: of the patella Left lower extremity: knee Details: tenderness Location: of the patella Psych Appearance: grossly normal Mental Status: mental status grossly normal Speech and Movement: speech and movement normal Course Vital Signs Vital signs: Vital Signs Temperature 37.0 C 03/26/20 15:10 Pulse 100 H 03/26/20 15:10 Respiratory Rate 16 03/26/20 15:10 Blood Pressure 166/73 H 03/26/20 15:10 Pulse Oximetry 96 03/26/20 15:10 Temperature 37.0 C 03/26/20 15:10 Temperature Source Skin 03/26/20 15:10 Pulse 100 H 03/26/20 15:10 Respiratory Rate 16 03/26/20 15:10 Respiratory Effort Non-Labored 03/26/20 15:14 Blood Pressure 166/73 H 03/26/20 15:10 Pulse Oximetry 96 03/26/20 15:10 Oxygen Delivery Method Room Air 03/26/20 15:10 Oxygen Flow Rate 0 03/26/20 15:10 Pain Level 10 03/26/20 15:10 Lab/Test Results Lab/Test Results: Laboratory Tests Range/Units 03/26/20 15:35 WBC (4.4-10.8) 10^3/uL 15.65 H RBC (3.93-5.22) 10^6/uL 3.14 L Hgb (11.2-15.7) g/dL 10.6 L Hct (36.0-46.0) % 30.4 L MCV (80-95) fL 96.8 H MCH (27.0-33.0) pg 33.8 H MCHC (32.0-36.0) % 34.9 RDW (11.7-14.6) % 11.5 L Plt Count (130-400) 10^3/uL 285 MPV (8.0-11.0) fL 9.0 Immature Gran % 0.4 Neutrophils % 85.2 Lymphocytes % 6.8 Monocytes % 7.2 Eosinophils % 0.1 Basophils % 0.3 Nucleated RBC % % 0 Absolute Neutrophils (1.2-6.7) 10^3/uL 13.33 H Absolute Lymphocytes (1.2-3.4) 10^3/uL 1.06 L Absolute Monocytes (0.1-0.8) 10^3/uL 1.13 H Absolute Eosinophils (0.0-0.7) 10^3/uL 0.02 Absolute Basophils (0.0-0.2) 10^3/uL 0.05
[2020-03-26 15:46] LABS: Anion Gap 7.7 mmol/L (3-11); BUN 14 mg/dL (7-18); CO2 27.3 mmol/L (21.0-32.0); Calcium 9.2 mg/dL (8.5-10.1); Glucose 121 mg/dL (74-106); Sodium 125 mmol/L (136-145)
[2020-03-26 15:47] LABS: Chloride 90 mmol/L (98-107)
[2020-03-26] MEDS: HYDROmorphone 2 MG/ML VIAL 0.5 MG IVP ×3 (15:47→18:48)
[2020-03-26 15:52] LABS: INR 1.1 (0.9-1.1); PTT Activated 23.9 sec (21.0-27.8)
--- NOTE | 2020-03-26 16:39 | DI.RAD_ITS ---
EXAM: XR KNEE LT 4V AP,LAT,ARIELA,PAT CLINICAL HISTORY: pain, fall. TECHNIQUE: 2D digital imaging was performed. COMPARISON: No exams were available for comparison FINDINGS: BONES: There is an acute fracture extending from the intercondylar notch laterally to the lateral me taphysis of the femur. The lateral femoral condyle is displaced 10 mm laterally. No bony destructiv e lesion is seen. The bones are osteopenic. JOINTS: The knee is normally aligned. There is a lipohemarthrosis. On the sunrise view, there are ti ny densities posterior to the patella which may represent loose bodies. SOFT TISSUE: There is diffuse soft tissue swelling the knee. Vascular calcifications are present. IMPRESSION: Displaced acute intercondylar fracture of the left femur as described above. DATA REPOSITORY: RADIATION DOSE DELIVERED:
--- NOTE | 2020-03-26 16:40 | DI.RAD_ITS ---
EXAM: XR KNEE RT 4V AP,LAT,ARIELA,PAT CLINICAL HISTORY: pain, fall. TECHNIQUE: 2D digital imaging was performed. COMPARISON: CR,XR XR KNEE LT 4V AP,LAT,ARIELA,PAT from 03/26/2020 FINDINGS: BONES: There is an acute fracture of the distal femur extending from the intercondylar region superio rly and laterally to the distal femoral metaphysis. The lateral femoral condyle is displaced 7 mm la terally. No bony destructive lesion is seen. The bones are osteopenic. JOINTS: Please see above. There is a joint effusion. Tiny densities are seen on the sunrise view po sterior to the patella which may represent loose bodies. SOFT TISSUE: Soft tissue swelling of the knee is noted. Vascular calcifications are present. IMPRESSION: Acute fracture of the distal femur as described. There is 1 mm of lateral displacement of the latera l femoral condyle. Please see the above discussion for complete details. DATA REPOSITORY: RADIATION DOSE DELIVERED:
--- NOTE | 2020-03-26 17:08 | DI.VRAD_ITS ---
PROCEDURE INFORMATION: Exam: XR Left Knee Exam date and time: 03/26/2020 4:39 PM Age: 74 years old Clinical indication: Injury or trauma; Fall; Blunt trauma; Knee; Bilateral; Injury details: PT unable to straighten either leg TECHNIQUE: Imaging protocol: XR Left knee. Views: 4 or more views. COMPARISON: No relevant prior studies available. FINDINGS: Bones/joints: There is intercondylar femur fracture with 10.7 mm diastasis between condyles with lateral displacement of lateral femoral condyle. There are punctate foci of loose bodies in the patellofemoral joint. Visualized bones are demineralized. Soft tissues: There is diffuse soft tissue swelling anteriorly as well as posteriorly. There is suprapatellar joint effusion and lipohemarthrosis. Vasculature: There are vascular calcifications. IMPRESSION: Acute intercondylar fracture of left femur with lateral displacement of lateral femoral condyle. There is diffuse soft tissue swelling and suprapatellar joint effusion and lipohemarthrosis. Dictated and Authenticated by: Daniel You MD. Ordering:CK Saunders MD
--- NOTE | 2020-03-26 17:12 | DI.VRAD_ITS ---
PROCEDURE INFORMATION: Exam: XR right Knee Exam date and time: 03/26/2020 4:39 PM Age: 74 years old Clinical indication: Injury or trauma; Fall; Blunt trauma; Knee; Bilateral; Injury details: PT unable to straighten either leg TECHNIQUE: Imaging protocol: XR right knee. Views: 4 or more views. COMPARISON: No relevant prior studies available. FINDINGS: Bones/joints: There is acute fracture of distal metaphysis of femur with fracture line extending to lateral femoral condyle and into intercondylar region. There is impaction and superior and lateral displacement of lateral femoral condyle. There is diastasis of 7 mm between the condyles. There are osseous fragments in patellofemoral compartment on medial aspect. There are heavy calcifications of popliteal, superficial femoral and arteries in calf. The bones are markedly demineralized. No definite acute fracture of the patella. There is severe narrowing of femorotibial joint on lateral as well as in medial aspect. There is suprapatellar joint effusion. Soft tissues: There is diffuse soft tissue swelling. IMPRESSION: There is discrepancy, the exam order is of left knee, however the pictures provided are of right knee by tech. I talked to the tech and she confirmed that this order was of right knee and labeling in the PACS are right. 1. Acute fracture deformity of distal femur involving metaphysis, lateral condyle with fracture extends into intercondylar region. There is lateral and superior displacement of the lateral condyle. There is marked narrowing and impaction of tibiofemoral joints . 2. There are osseous fragments or loose bodies in patellofemoral compartment. 3. Soft tissue swelling and suprapatellar joint effusion. 4. Markedly demineralized bones. Dictated and Authenticated by: Daniel You MD. Ordering:CK Saunders MD
--- NOTE | 2020-03-26 17:30 | DI.CT_ITS ---
EXAM: CT LOWER EXTREMITY LT WO CLINICAL HISTORY: femoral fracture, pain. TECHNIQUE: Imaging Protocol: Axial computed tomography images with coronal and sagittal reformatted images were created and reviewed. CONTRAST MATERIAL: Intravenous: No Oral: No COMPARISON: CR,XR XR KNEE LT 4V AP,LAT,ARIELA,PAT from 03/26/2020 FINDINGS: Bones: There is again seen an oblique fracture extending from the lateral metaphysis of the distal f emur into the intercondylar notch. The lateral femoral condyle is displaced approximately 8 mm later ally. There is a moderate lipohemarthrosis. There is diffuse soft tissue swelling about the left kn ee. Bones are osteopenic. No other fracture or dislocation is present. There is chondrocalcinosis present. Soft Tissues: There is atherosclerosis. IMPRESSION: Acute intercondylar fracture with lateral displacement of the lateral femoral condyle of the left fem ur. Lipohemarthrosis and diffuse soft tissue swelling. RADIATION DOSE DELIVERED: Total DLP DATA REPOSITORY: All CT scans at this facility are submitted to the National Radiology Data Registry (NRDR) Dose Index Registry (DIR) with the [employer] (ACR). RADIATION OPTIMIZATION: All CT scans at this facility use at least one of these dose optimization te chniques: automated exposure control; mA and/or kV adjustment per patient size (includes targeted exa ms where dose is matched to clinical indication); or iterative reconstruction.
--- NOTE | 2020-03-26 17:30 | DI.CT_ITS ---
EXAM: CT LOWER EXTREMITY RT WO CLINICAL HISTORY: femoral fracture, pain. TECHNIQUE: Imaging Protocol: Axial computed tomography images with coronal and sagittal reformatted images were created and reviewed. CONTRAST MATERIAL: Intravenous: No Oral: No COMPARISON: No exams were available for comparison FINDINGS: Bones: There is an acute fracture of the distal femur. The fracture begins in the lateral metaphysi s and extends inferiorly and medially to the intercondylar notch. The lateral femoral condyle is dis placed laterally approximately 1 cm. There is a lipohemarthrosis. There is soft tissue swelling abo ut the right knee. The bones are osteopenic. Vascular calcifications are present. There are degene rative changes seen in the hip. No other fracture or dislocation is identified. There is a Snow catheter in the urinary bladder. There is a moderate amount of stool in the colon. Soft Tissues: See above. IMPRESSION: Acute intercondylar fracture with lateral displacement of the lateral femoral condyle. Lipohemarthro sis and diffuse soft tissue swelling. RADIATION DOSE DELIVERED: Total DLP DATA REPOSITORY: All CT scans at this facility are submitted to the National Radiology Data Registry (NRDR) Dose Index Registry (DIR) with the [employer] (ACR). RADIATION OPTIMIZATION: All CT scans at this facility use at least one of these dose optimization te chniques: automated exposure control; mA and/or kV adjustment per patient size (includes targeted exa ms where dose is matched to clinical indication); or iterative reconstruction.
[2020-03-26 17:52] LABS: Bilirubin Negative (Negative); Blood Trace-intact (Negative); Clarity Clear (Clear); Glucose Negative (Negative); Ketones 15 mg/dL (Negative); Leukocyte Esterase Negative (Negative); Nitrite Negative (Negative); Urobilinogen 0.2 EU/dL (Up TO 0.2)
[2020-03-26 18:05] LABS: Bacteria Negative HPF (Negative); C & S Indicated? No; Casts Negative LPF (Negative); Crystals Negative HPF (Negative); Epithelial Cells Rare HPF (Negative); Mucus Negative (Negative); RBC 0-2 HPF (0-2); WBC 0-2 HPF (0-5)
--- NOTE | 2020-03-26 18:35 | DI.CT_ITS ---
EXAM: CT LOWER EXTREMITY RT WO CLINICAL HISTORY: femoral fracture, pain. TECHNIQUE: Imaging Protocol: Axial computed tomography images with coronal and sagittal reformatted images were created and reviewed. CONTRAST MATERIAL: Intravenous: No Oral: No COMPARISON: No exams were available for comparison FINDINGS: Bones: There is an acute fracture of the distal femur. The fracture begins in the lateral metaphysi s and extends inferiorly and medially to the intercondylar notch. The lateral femoral condyle is dis placed laterally approximately 1 cm. There is a lipohemarthrosis. There is soft tissue swelling abo ut the right knee. The bones are osteopenic. Vascular calcifications are present. There are degene rative changes seen in the hip. No other fracture or dislocation is identified. There is a Snow catheter in the urinary bladder. There is a moderate amount of stool in the colon. Soft Tissues: See above. IMPRESSION: Acute intercondylar fracture with lateral displacement of the lateral femoral condyle. Lipohemarthro sis and diffuse soft tissue swelling. RADIATION DOSE DELIVERED: Total DLP DATA REPOSITORY: All CT scans at this facility are submitted to the National Radiology Data Registry (NRDR) Dose Index Registry (DIR) with the [employer] (ACR). RADIATION OPTIMIZATION: All CT scans at this facility use at least one of these dose optimization te chniques: automated exposure control; mA and/or kV adjustment per patient size (includes targeted exa ms where dose is matched to clinical indication); or iterative reconstruction. -- EXAM: CT LOWER EXTREMITY RT WO CLINICAL HISTORY: femoral fracture, pain. TECHNIQUE: Imaging Protocol: Axial computed tomography images with coronal and sagittal reformatted images were created and reviewed. CONTRAST MATERIAL: Intravenous: No Oral: No COMPARISON: No exams were available for comparison FINDINGS: Bones: There is an acute fracture of the distal femur. The fracture begins in the lateral metaphysi s and extends inferiorly and medially to the intercondylar notch. The lateral femoral condyle is dis placed laterally approximately 1 cm. There is a lipohemarthrosis. There is soft tissue swelling abo ut the right knee. The bones are osteopenic. Vascular calcifications are present. There are degene rative changes seen in the hip. No other fracture or dislocation is identified. There is a Snow catheter in the urinary bladder. There is a moderate amount of stool in the colon. Soft Tissues: See above.
--- NOTE | 2020-03-26 18:57 | DI.VRAD_ITS ---
PROCEDURE INFORMATION: Exam: CT Right Lower Extremity Without Contrast; Thigh Exam date and time: 03/26/2020 5:36 PM Age: 74 years old Clinical indication: Thigh; Right; Patient HX: Femoral FX, pain TECHNIQUE: Imaging protocol: CT of the Right lower extremity without contrast was performed. Exam focused on the thigh. Radiation optimization: All CT scans at this facility use at least one of these dose optimization techniques: automated exposure control; mA and/or kV adjustment per patient size (includes targeted exams where dose is matched to clinical indication); or iterative reconstruction. COMPARISON: No relevant prior studies available. FINDINGS: Tubes, catheters and devices: Visualized abdominen demonstrates Snow catheter within urinary bladder. The bowel are nondistended. There is mild to moderate stool volume in rectum. There are heavy calcifications of common iliac arteries and arteries of lower extremities. Bones/joints: Visualized bones are demineralized. There is redemonstration of oblique intercondylar fracture which extends from metaphysis to articular surface of knee. There is 1.2 cm lateral displacement of lateral femoral condyle. There is moderate joint effusion and lipohemarthrosis of knee joint. There is diffuse soft tissue swelling. There are foci of calcifications in the right patellofemoral joint which could reflect CPPD arthropathy. There is no fracture of the patella or tibial plateau. There is no fracture of fibula. Soft tissues: There is diffuse soft tissue swelling and edema in the Hoffa fat pad. IMPRESSION: Acute intercondylar fracture with lateral displacement of the lateral femoral condyle. There is moderate lipohemarthrosis and diffuse soft tissue swelling. Dictated and Authenticated by: Daniel You MD. Ordering:CK Saunders MD
--- NOTE | 2020-03-26 19:05 | DI.VRAD_ITS ---
PROCEDURE INFORMATION: Exam: CT Left Lower Extremity Without Contrast; Thigh Exam date and time: 03/26/2020 5:36 PM Age: 74 years old Clinical indication: Thigh; Left; Patient HX: Femoral fracture, pain TECHNIQUE: Imaging protocol: CT of the Left lower extremity without contrast was performed. Exam focused on the thigh. 3D rendering (Not supervised by radiologist): MIP and/or 3D reconstructed images were created by the technologist. Radiation optimization: All CT scans at this facility use at least one of these dose optimization techniques: automated exposure control; mA and/or kV adjustment per patient size (includes targeted exams where dose is matched to clinical indication); or iterative reconstruction. COMPARISON: CR XR KNEE RT 4V AP,LAT,ARIELA,PAT 03/26/2020 4:21 PM FINDINGS: Bones/joints: Redemonstration of oblique intracondylar fracture with lateral displacement of lateral femoral condyle of left femur. There is diastasis of approximately 8 mm. There is moderate lipohemarthrosis and diffuse soft tissue swelling about knee. There is no fracture of patella. There is mild foci of calcification in the patellofemoral joint which might be a sequela of CPPD arthropathy. Intercondylar fracture of the right femur was previously described. Tibial plateau and proximal fibula are intact. Soft tissues: See Bones/joints finding. Vasculature: There are heavy atherosclerotic calcifications of common iliac artery, superficial femoral artery. IMPRESSION: 1. Acute intercondylar fracture with lateral displacement of lateral femoral condyle of left femur. There is moderate lipohemarthrosis in knee joint. There is diffuse soft tissue swelling about knee. No other fracture in the left femur. Tibial plateau, patella and proximal fibula are intact. 2. Right femoral fracture is unchanged and previously described. Dictated and Authenticated by: Daniel You MD. Ordering:CK Saunders MD
[2020-03-26] MEDS: MORPHine 2 MG/ML SYR IVP ×2 (19:41→21:13)
[2020-03-26] MEDS: Normal Saline 1,000 ML 100 ML IV (19:42)
[2020-03-26] MEDS: Ketorolac 15 MG/ML VIAL IVP (21:13)
[2020-03-27] VITALS (30 sets, daily range): BP systolic 94–170; BP diastolic 37–91; PULSE 74–109; RESP 9–25; TEMP 36.5; O2SAT 86–100
--- NOTE | 2020-03-27 | DI.RAD_ITS ---
EXAM: XR PORTABLE CHEST AP CLINICAL HISTORY: preop clearance TECHNIQUE: 2D digital imaging was performed. COMPARISON: CR CHEST 2 VIEWS PA,LAT from 08/20/2016 FINDINGS: MEDIASTINUM: Normal. HEART: Normal. PULMONARY VASCULATURE: Normal. LUNGS: Clear. Inflated lungs suggesting underlying COPD. PLEURAL SPACE: No pleural effusion or pneumothorax. BONE:Within normal limits for the patient's age. OTHER FINDINGS:Normal. IMPRESSION: No acute pulmonary findings. DATA REPOSITORY: RADIATION DOSE DELIVERED:
[2020-03-27] MEDS: MORPHine 2 MG/ML SYR IVP ×2 (00:53→06:22)
[2020-03-27] MEDS: Ketorolac 15 MG/ML VIAL IVP ×3 (06:22→21:24)
--- NOTE | 2020-03-27 07:25 | OCONE_ITS ---
Date of service: 03/27/20 Time of Service: 07:14 History of Present Illness History of Present Illness Chief Complaint: Bilateral Femur Fractures Narrative: Uri is a 74-year-old who had a fall yesterday. She tripped over a step in her house landing on both knees directly. She had immediate pain in both knees with the inability to extend. She was brought into the emergency department by EMS and was diagnosed with bilateral distal femur fractures. She has been diagnosed with osteoporosis in the past with vertebral fractures. She was supposed to be started on alendronate but declined due to risk factors. She does take vitamin D and calcium. She is an active smoker. She is otherwise independent with ambulation and lives with her at home with nearby family. She has a single level house with 1 step inside between the bedrooms living spaces. She uses no assistive device at baseline. She denies having any sick contacts. She has had no recent illnesses. She denies fevers or chills. She denies any chest pain or shortness of breath. She reports history of hypertension which has been currently managed with lisinopril. She denies any head trauma or loss of consciousness after the fall. She denies any current numbness or tingling. She has sharp pain in both knees if she tries to move them at all. Mobilization in the bed has been difficult. Dr. Bang did identify lesion of her nose which he was concerned about. She has a history of basal cell carcinoma and having this excised an earlier date. Consults Consult date: 03/27/20 Consult Reason Bilateral femur fractures Assessment and Plan Assessment and plan (1) Fracture of femoral condyle, left, closed: Status: Acute Qualifiers: Encounter type: initial encounter Fracture alignment: displaced Qualified Code(s): S72.412A - Displaced unspecified condyle fracture of lower end of left femur, initial encounter for closed fracture (2) Fracture of femoral condyle, right, closed: Status: Acute Assessment and plan: Uri is a 74-year-old who suffered a fall onto both knees with resultant intra-articular distal femur fractures. This is an unfortunate injury. A significant reason for this injury could be related to her poor bone quality. She does take vitamin D and calcium but she has been recommended to take a bisphosphonate or other bone metabolism agent after vertebral fractures but has declined due to perceived risks. I was very honest with Cecelia that this fracture pattern would require fixation to reduce the lateral condyle especially since there is articular involvement. She was an independent ambulator prior to this injury and I hope that we get her back to that point. However, it will be some time. The plan would be for anatomic fixation of the split with a buttress plate of the femur. This still would not allow complete weightbearing but I think I will let her transfer at least. She will be transfers only for the first 6 weeks which would be quite challenging. I reviewed this with her. I also think she should consider some type of bone metabolic agent. Given her age and some her medical conditions, including smoking and hypertension, I will asked the hospitalist to see Uri for preoperative clearance. I am unable to do this today but will plan to add her on tomorrow. I reviewed the risk of the procedure with her in detail. These include but are not limited to bleeding, infection, pain, stiffness, hardware failure, hardware prominence, malunion, nonunion, need for repeat procedures, refracture, blood clot, damage to nerves and vessels. Despite these risks, she elects to proceed. Qualifiers: Encounter type: initial encounter Fracture alignment: displaced Qualified Code(s): S72.411A - Displaced unspecified condyle fracture of lower end of right femur, initial encounter for closed fracture Review of Systems All systems reviewed & are unremarkable except as noted in HPI and below PFSH Medical History Basal cell carcinoma of nose (07/12/15) Cataract Essential hypertension ETOH abuse Proximal humerus fracture (07/20/17) Tobacco use Surgical History History of basal cell carcinoma (BCC) excision History of esophagogastroduodenoscopy (EGD) History of tubal ligation Family History Grandfather Myocardial infarction Mother Alcohol abuse Father No problems noted. Son No problems noted. Son No problems noted. Daughter No problems noted. Daughter No problems noted. 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 [employer] Pets and animals: Yes Pets and animals: dog(s) What is your relationship status?: Panel score (0-1 are the most socially isolated patients): 1 What type of physical activity do you participate in: none Special lissy needs: No Do you feel safe at home: Yes Do you feel safe in your relationship?: Yes Exam Const General: cooperative, frail appearing and other (Laying on her right side in a flexed position of both hips and knees) Nutritional Appearance: thin Orientation: alert, awake and oriented x3 HENMT Head: normal to inspection Ears: hearing grossly normal bilaterally Eyes General: appearance normal, both eyes and all related structures Neck Neck: normal visual inspection Other: Some supraclavicular wasting Resp Effort & Inspection: normal respiratory effort Extrem Other: Evaluation of the right leg shows a grossly normal-appearing skin exam. No apparent lesions. No abrasions. No lacerations. The right leg is flexed at the hip and at the knee. She is very thin and anatomy is easily visible through the skin. There is exquisite pain to palpation of the distal femur around the patella. There is a only mild effusion. No significant ecchymosis. No chronic skin changes distally. The ankle has intact dorsiflexion, plantarflexion, great toe extension and flexion. Palpable DP and PT pulses. Sensation intact light touch over the deep and superficial peroneal nerves and tibial nerve. Evaluation left leg is a very similar examination. The left leg is flexed at the hip and at the knee. There are no overlying skin changes or lesions. No abrasions. No significant ecchymosis. Mild effusion of the left knee. Squeeze of pain to palpation of the distal femur around the patella. Motion was not tested of either leg due to the known fractures. No pain to palpation proximally of the femur bilaterally especially of the left side which is easiest to exam given her positioning in the bed. Ankle dorsiflexion and plantarflexion is intact. Great toe extension and flexion is intact. Palpable DP and PT pulses. Sensation intact to light touch over the deep and superficial peroneal nerves and tibial nerve. Results Last Vital Signs Temp 36.7 C 03/26/20 20:15 Pulse 84 03/27/20 08:00 Resp 11 L 03/27/20 08:00 BP 128/51 L 03/27/20 08:00 Pulse Ox 96 03/27/20 08:00 Labs Result diagrams: 03/27/20 08:20 03/27/20 08:20 Labs: Laboratory Results - last 24 hr 03/26/20 03/26/20 03/26/20 15:35 15:35 15:35 WBC 15.65 H RBC 3.14 L Hgb 10.6 L Hct 30.4 L MCV 96.8 H MCH 33.8 H MCHC 34.9 RDW 11.5 L Plt Count 285 MPV 9.0 Immature Gran % 0.4 Neutrophils % 85.2 Lymphocytes % 6.8 Monocytes % 7.2 Eosinophils % 0.1 Basophils % 0.3 Nucleated RBC % 0 Absolute Neutrophils 13.33 H Absolute Lymphocytes 1.06 L Absolute Monocytes 1.13 H Absolute Eosinophils 0.02 Absolute Basophils 0.05 PT 11.0 INR 1.1 APTT 23.9 Sodium 125 L Potassium 4.0 Chloride 90 L Carbon Dioxide 27.3 Anion Gap 7.7 BUN 14 Creatinine 0.60 Estimated GFR/1.73 m2 >= 60.00 Glucose 121 H Calcium 9.2 Magnesium Creatine Kinase Troponin I Urine Color Urine Clarity Urine pH Ur Specific [place] Urine Protein Urine Ketones Urine Blood Urine Nitrite Urine Bilirubin Urine Urobilinogen Ur Leukocyte Esterase Urine RBC Urine WBC Ur Epithelial Cells Urine Crystals Urine Bacteria Urine Casts Urine Mucus Ur Culture Indicated? Urine Glucose 03/26/20 03/27/20 03/27/20 17:49 08:20 08:20 WBC 8.01 D RBC 2.94 L Hgb 9.9 L Hct 29.2 L MCV 99.3 H MCH 33.7 H MCHC 33.9 RDW 11.7 Plt Count 231 MPV 8.9 Immature Gran % 0.5 Neutrophils % 64.8 Lymphocytes % 16.9 Monocytes % 14.4 Eosinophils % 3.2 Basophils % 0.2 Nucleated RBC % 0 Absolute Neutrophils 5.19 Absolute Lymphocytes 1.35 Absolute Monocytes 1.15 H Absolute Eosinophils 0.26 Absolute Basophils 0.02 PT INR APTT Sodium 127 L Potassium 4.2 Chloride 94 L Carbon Dioxide 27.6 Anion Gap 5.4 BUN 12 Creatinine 0.56 Estimated GFR/1.73 m2 >= 60.00 Glucose 89 Calcium 8.6 Magnesium 1.5 L Creatine Kinase 43 Troponin I < 0.05 Urine Color Yellow Urine Clarity Clear Urine pH 6.0 Ur Specific [place] 1.020 Urine Protein Negative Urine Ketones 15 H Urine Blood Trace-intact H Urine Nitrite Negative Urine Bilirubin Negative Urine Urobilinogen 0.2 Ur Leukocyte Esterase Negative Urine RBC 0-2 Urine WBC 0-2 Ur Epithelial Cells Rare Urine Crystals Negative Urine Bacteria Negative Urine Casts Negative Urine Mucus Negative Ur Culture Indicated? No Urine Glucose Negative Imaging Imaging Studies: Right knee x-ray demonstrates the intracondylar fracture of the distal femur with the lateral condyle displaced superiorly and laterally. Diffuse osteopenia seen throughout the examination. Left knee x-ray demonstrates similar findings with intercondylar fracture with some displacement of the lateral condyle. Diffuse osteopenia throughout the examination. CT scans of both right and left knees demonstrate similar findings and that there is an intercondylar split involving the majority of the lateral condyle. There is some displacement of the fracture site mostly at the notch. The primary fracture plane is a sagittal fracture plane with no significant coronal, Hoffa, variant.
--- NOTE | 2020-03-27 08:11 | W.PM.PROGNOT ---
Subjective Subjective Interval history since last seen: In pain. 7/10. 2 maria t/day. Smoker. Refused to patch. Objective Last Vital Signs Temp 36.7 C 03/26/20 20:15 Pulse 84 03/27/20 06:00 Resp 12 03/27/20 06:01 BP 137/51 L 03/27/20 06:00 Pulse Ox 99 03/27/20 06:01 Laboratory Results - last 24 hr 03/26/20 03/26/20 03/26/20 15:35 15:35 15:35 WBC 15.65 H RBC 3.14 L Hgb 10.6 L Hct 30.4 L MCV 96.8 H MCH 33.8 H MCHC 34.9 RDW 11.5 L Plt Count 285 MPV 9.0 Immature Gran % 0.4 Neutrophils % 85.2 Lymphocytes % 6.8 Monocytes % 7.2 Eosinophils % 0.1 Basophils % 0.3 Nucleated RBC % 0 Absolute Neutrophils 13.33 H Absolute Lymphocytes 1.06 L Absolute Monocytes 1.13 H Absolute Eosinophils 0.02 Absolute Basophils 0.05 PT 11.0 INR 1.1 APTT 23.9 Sodium 125 L Potassium 4.0 Chloride 90 L Carbon Dioxide 27.3 Anion Gap 7.7 BUN 14 Creatinine 0.60 Estimated GFR/1.73 m2 >= 60.00 Glucose 121 H Calcium 9.2 Urine Color Urine Clarity Urine pH Ur Specific [place] Urine Protein Urine Ketones Urine Blood Urine Nitrite Urine Bilirubin Urine Urobilinogen Ur Leukocyte Esterase Urine RBC Urine WBC Ur Epithelial Cells Urine Crystals Urine Bacteria Urine Casts Urine Mucus Ur Culture Indicated? Urine Glucose 03/26/20 17:49 WBC RBC Hgb Hct MCV MCH MCHC RDW Plt Count MPV Immature Gran % Neutrophils % Lymphocytes % Monocytes % Eosinophils % Basophils % Nucleated RBC % Absolute Neutrophils Absolute Lymphocytes Absolute Monocytes Absolute Eosinophils Absolute Basophils PT INR APTT Sodium Potassium Chloride Carbon Dioxide Anion Gap BUN Creatinine Estimated GFR/1.73 m2 Glucose Calcium Urine Color Yellow Urine Clarity Clear Urine pH 6.0 Ur Specific [place] 1.020 Urine Protein Negative Urine Ketones 15 H Urine Blood Trace-intact H Urine Nitrite Negative Urine Bilirubin Negative Urine Urobilinogen 0.2 Ur Leukocyte Esterase Negative Urine RBC 0-2 Urine WBC 0-2 Ur Epithelial Cells Rare Urine Crystals Negative Urine Bacteria Negative Urine Casts Negative Urine Mucus Negative Ur Culture Indicated? No Urine Glucose Negative
[2020-03-27 08:29] LABS: Abs Immature Grans 0.04 10^3/uL (0.0-0.06); Absolute Basophil Count 0.02 10^3/uL (0.0-0.2); Absolute Eosinophil Count 0.26 10^3/uL (0.0-0.7); Absolute Lymphocyte Count 1.35 10^3/uL (1.2-3.4); Absolute Monocyte Count 1.15 10^3/uL (0.1-0.8); Absolute Neutrophil Count 5.19 10^3/uL (1.2-6.7); Basophils % 0.2; Eosinophils % 3.2; HCT 29.2 % (36.0-46.0); HGB 9.9 g/dL (11.2-15.7); Immature Grans % 0.5; Lymphocytes % 16.9; MCH 33.7 pg (27.0-33.0); MCHC 33.9 % (32.0-36.0); MCV 99.3 fL (80-95); MPV 8.9 fL (8.0-11.0); Monocytes % 14.4; Neutrophils % 64.8; Nucleated RBC 0 %; Platelet Count 231 10^3/uL (130-400); RBC 2.94 10^6/uL (3.93-5.22); RDW 11.7 % (11.7-14.6); RDW-SD 42.5 fL; WBC 8.01 10^3/uL (4.4-10.8)
--- NOTE | 2020-03-27 08:30 | RT.EKG_ITS ---
APPROVED REPORT Exam: Resting ECG Patient Location: I HR:89 bpm ECG Measurements Heart Rate 89 AXIS MD 122 P 51 QRSd 85 QRS 58 QT 347 T 55 QTc 423 Conclusion Sinus rhythm...normal P axis, V-rate 60- 99 Low voltage, extremity and precordial leads...extremity<0.5mV, precordial<1.0mV Anteroseptal infarct, old...Q >40mS, V1-V2
[2020-03-27 08:43] LABS: Anion Gap 5.4 mmol/L (3-11); BUN 12 mg/dL (7-18); CO2 27.6 mmol/L (21.0-32.0); CREATININE 0.56 mg/dL (0.55-1.02); Calcium 8.6 mg/dL (8.5-10.1); Chloride 94 mmol/L (98-107); Creatine Kinase 43 U/L (26-192); Glucose 89 mg/dL (74-106); Magnesium 1.5 mg/dL (1.8-2.4); Potassium 4.2 mmol/L (3.5-5.1); Sodium 127 mmol/L (136-145)
[2020-03-27 08:44] LABS: Troponin I < 0.05 ng/mL (<0.06)
[2020-03-27] MEDS: Calcium Carbonate 1.5 GM TAB PO ×2 (08:55→20:08)
[2020-03-27] MEDS: Senna TAB 1 TAB PO ×2 (08:56→20:08)
[2020-03-27] MEDS: Docusate Sodium 100 MG CAP PO ×2 (08:56→20:08)
[2020-03-27] MEDS: Thiamine 100 MG TAB PO (08:56)
[2020-03-27] MEDS: Cholecalciferol (Vitamin D3) 1,000 UNIT TAB 2000 UNITS PO (08:56)
[2020-03-27] MEDS: Multivitamin TAB 1 TAB PO (08:56)
[2020-03-27] MEDS: Acetaminophen 325 MG TAB 650 MG PO ×4 (08:57→23:22)
[2020-03-27] MEDS: oxyCODONE 5 MG TAB PO ×2 (08:58→11:50)
--- NOTE | 2020-03-27 09:31 | INITIAL_ITS ---
- If Service Date Differs Date of service: 03/27/20 Time of Service: 09:31 Care Management Initial Assess REASON FOR HOSPITALIZATION:: Bilateral femur fracture PAST MEDICAL HISTORY/PAST SURGICAL HISTORY:: Medical History. Basal cell carcinoma of nose (07/12/15). Cataract. Essential hypertension. ETOH abuse. Proximal humerus fracture (07/20/17). Tobacco use. Surgical History . History of basal cell carcinoma (BCC) excision. History of esophagogastroduodenoscopy (EGD). History of tubal ligation PREVIOUS FUNCTIONAL STATUS/SOCIAL/FAMILY SUPPORTS:: Johnny Hedrick) lives at home with her spouse she has four children and seven grandchildren. She describes a supportive family that will care for her when she returns home. She does not use any equipment for mobility and states up until this injury she has not needed assistance. 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 CURRENT FUNCTIONAL STATUS:: Johnny is alert and engaged with CM. She states she has a supportive family and they will care for her at home after discharge. She declined SNF for rehab. She will need a wheelchair for home, CM will send a pres cription for DME to [facility]. She has a FWW at home and her family is putting in a ramp. CARLOS ENRIQUE did discuss advance directives with Johnny she does not have them at this time. She has not been able to make decisions about her care if she was unable to make her own decisions. This has caused her hesitation in completing. CARLOS ENRIQUE did review forms with her and she is willing to consider the discussion related to her A/D. ADVANCE DIRECTIVES:: None on file, will offer forms and assistance in completion Has patient been provided with info about the portal/API?: Yes Did the patient sign up for the portal?: No CODE STATUS:: Full Code INSURANCE COVERAGE / FINANCIAL ISSUES:: Medicare CURRENT HOME/COMMUNITY SERVICES/EQUIPMENT:: She has a FWW. She will need home health new nursing, PT, OT and wheelchair. PRIMARY CARE PHYSICIAN:: POTENTIAL DISCHARGE NEEDS:: New home health nursing, PT and OT. She will need follow up with primary care and orthopedics, and a wheelchair coordinator by CARLOS ENRIQUE. PATIENT/FAMILY EDUCATION NEEDS:: Discharge education, limitations and follow up plan of care including ask me three and self management. ANTICIPATED BARRIERS TO DISCHARGE:: DME and safe discharge plan TRANSPORTATION:: Via private car vs Ambulance PLAN:: Anticipate surgery on 03/28 by . Anticipate she will need new home health all services and a wheelchair which CM will order prior to discharge. CM will continue to assess for ongoing discharge needs.
[2020-03-27] MEDS: MAGNESIUM SULFATE 4 GM/100 ML BAG IVPB (10:49)
[2020-03-27] MEDS: Normal Saline 1,000 ML 50 ML IV (11:30)
--- NOTE | 2020-03-27 12:59 | W.MEDCONSULT ---
Date of service: 03/27/20 Time of Service: 13:00 Assessment and Plan Assessment and plan (1) Fracture of femoral condyle, left, closed: Status: Acute Assessment and plan: Plan is for surgery tomorrow. The patient has a h/o osteoporosis and smokes. She is on vitamin D replacement and calcium. Check vitamin D level. I spoke with her about smoking cessation. Patient is on a bowel regimen. Encourage IS. Preop clearance discussion below. Qualifiers: Encounter type: initial encounter Fracture alignment: displaced Qualified Code(s): S72.412A - Displaced unspecified condyle fracture of lower end of left femur, initial encounter for closed fracture (2) Fracture of femoral condyle, right, closed: Status: Acute Assessment and plan: As above Qualifiers: Encounter type: initial encounter Fracture alignment: displaced Qualified Code(s): S72.411A - Displaced unspecified condyle fracture of lower end of right femur, initial encounter for closed fracture (3) Abnormal EKG: Status: Chronic Assessment and plan: The patient has evidence of an old UT on her EKG. She had an equivocal stress echo a [facility] in 2011. Orthopedic surgery has intermediate intrinsic cardiac risk. Given presence of old UT on EKG, the patient has 6% 30-day risk of /UT/cardiac arrest. Given report of MONZON, I think obtaining an echo to evaluate EF and assess wall motion would be prudent prior to surgery (ordered). (4) Essential hypertension: Status: Chronic Assessment and plan: Given hyponatremia, hold marylin-i. (5) Osteoporosis: Status: Chronic Assessment and plan: As above - continue calcium and vitamin D repletion. Would benefit from a bisphosphonate. (6) Tobacco use: Status: Chronic Assessment and plan: advised to quit. Provide nicotine replacement. (7) ETOH abuse: Status: Chronic Assessment and plan: Will monitor on CIWA, provide MVI, thiamine. (8) Malnutrition: Status: Chronic Assessment and plan: Consult nutrition. (9) DVT prophylaxis: Status: Acute Assessment and plan: SC heparin to be held after 2 am dose. History of Present Illness History of Present Illness Chief Complaint: Consult for preop clearance and help with post-surgical management Narrative: Ms Xie is a 74 year old female with PMHx of hypertension, osteoporosis with prior vertebral compression fractures, upper GI bleeding thought to be related to alcoholic gastritis, alcohol abuse, tobacco abuse, and chronic protein-calorie malnutrition with BMI of 14, who was admitted to the orthopedic service after sustaining bilateral femoral condyle fractures as a result of tripping and falling while going up a step in her house yesterday morning. The patient states she did not hit her head and that she was not drinking at the time. Her pain is controlled at this time, and she is planned to undergo surgery tomorrow. She reports a chronic cough productive of white sputum, which she feels is at her baseline. She denies chest pains, shortness of breath at rest, but endorses some MONZON with activity. She cannot qualify for me how much activity she has to do before she gets short of breath, but states she is able to walk across her house (prior to the fractures) to her car without symptoms. She was never told she had any kind of lung disease and is not normally on oxygen. In the ICU, she has been on 0.5 L saturating 97% while asleep, and nursing was titrating it off. She denies contact with anyone who is infected with COVID-19, fevers, runny nose, sore throat, shortness of breath, change to senses of taste and smell. We spoke about smoking affecting healing of fractures, and she was advised to quit. Review of Systems All systems reviewed & are unremarkable except as noted in HPI and below PFSH Medical History Alcoholic gastritis with bleeding Basal cell carcinoma of nose (07/12/15) Calculus, kidney Cataract Essential hypertension ETOH abuse Malnutrition Proximal humerus fracture (07/20/17) Tobacco use Surgical History History of basal cell carcinoma (BCC) excision History of esophagogastroduodenoscopy (EGD) History of tubal ligation Family History (Updated 03/27/20 @ 13:30 by Raeann Mota MD) Grandfather Myocardial infarction Mother Alcohol abuse Paternal Grandfather Heart disease Social History (Updated 03/27/20 @ 13:30 by Raeann Mota MD) Smoking/Tobacco Use Status: Current every day Tobacco Type: cigarettes Smoking packs per day: 0.5 Smoking cigarettes per day: 10.0 Years smoked: 50 Smoking pack-years: 25.00 Tobacco: How many years used: 50 Counseling given: provider counseling Smoking risk assessment performed?: Yes Alcohol Intake: current Alcohol Intake frequency: 0-2 drinks per day Alcohol type: wine Counseling provided: provider counseling Drug use: Never Substance use type: does not use Household members: spouse and other Housing: house Number of Children: 4 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 [employer] Pets and animals: Yes Pets and animals: dog(s) What is your relationship status?: Panel score (0-1 are the most socially isolated patients): 1 What type of physical activity do you participate in: none Special lissy needs: No Do you feel safe at home: Yes Do you feel safe in your relationship?: Yes Exam Narrative Exam Narrative: General: Pleasant frail elderly female, who is resting comfortably, easily arousable, good history provider, does not appear to be short of breath talking in full sentences Neurological: A&Ox3, no focal deficits Psychiatric: appropriate speech pattern/content Skin: crusted-over nasal skin lesion, not actively bleeding HEENT: Atraumatic, normocephalic, EOMI, dry MM, clear oropharynx, no submandibular or cervical lymphadenopathy, no goiter or JVD Cardiovascular: RRR, no m/r/g Lungs: expiratory rhonchi B; has sounds of wet respiratory secretions. Gastrointestinal: soft, nontender, nondistended Genitourinary: has a cardona Extremities: able to move toes on both feet, +1 pedal pulses B; patient resists remainder of LE exam Results Last Vital Signs Temp 36.7 C 03/26/20 20:15 Pulse 94 H 03/27/20 12:00 Resp 18 03/27/20 12:00 BP 137/53 L 03/27/20 12:00 Pulse Ox 95 03/27/20 12:00 Labs Result diagrams: 03/27/20 08:20 03/27/20 08:20 Labs: Laboratory Results - last 24 hr 03/26/20 03/26/20 03/26/20 15:35 15:35 15:35 WBC 15.65 H RBC 3.14 L Hgb 10.6 L Hct 30.4 L MCV 96.8 H MCH 33.8 H MCHC 34.9 RDW 11.5 L Plt Count 285 MPV 9.0 Immature Gran % 0.4 Neutrophils % 85.2 Lymphocytes % 6.8 Monocytes % 7.2 Eosinophils % 0.1 Basophils % 0.3 Nucleated RBC % 0 Absolute Neutrophils 13.33 H Absolute Lymphocytes 1.06 L Absolute Monocytes 1.13 H Absolute Eosinophils 0.02 Absolute Basophils 0.05 PT 11.0 INR 1.1 APTT 23.9 Sodium 125 L Potassium 4.0 Chloride 90 L Carbon Dioxide 27.3 Anion Gap 7.7 BUN 14 Creatinine 0.60 Estimated GFR/1.73 m2 >= 60.00 Glucose 121 H Calcium 9.2 Magnesium Creatine Kinase Troponin I Urine Color Urine Clarity Urine pH Ur Specific [place] Urine Protein Urine Ketones Urine Blood Urine Nitrite Urine Bilirubin Urine Urobilinogen Ur Leukocyte Esterase Urine RBC Urine WBC Ur Epithelial Cells Urine Crystals Urine Bacteria Urine Casts Urine Mucus Ur Culture Indicated? Urine Glucose 03/26/20 03/27/20 03/27/20 17:49 08:20 08:20 WBC 8.01 D RBC 2.94 L Hgb 9.9 L Hct 29.2 L MCV 99.3 H MCH 33.7 H MCHC 33.9 RDW 11.7 Plt Count 231 MPV 8.9 Immature Gran % 0.5 Neutrophils % 64.8 Lymphocytes % 16.9 Monocytes % 14.4 Eosinophils % 3.2 Basophils % 0.2 Nucleated RBC % 0 Absolute Neutrophils 5.19 Absolute Lymphocytes 1.35 Absolute Monocytes 1.15 H Absolute Eosinophils 0.26 Absolute Basophils 0.02 PT INR APTT Sodium 127 L Potassium 4.2 Chloride 94 L Carbon Dioxide 27.6 Anion Gap 5.4 BUN 12 Creatinine 0.56 Estimated GFR/1.73 m2 >= 60.00 Glucose 89 Calcium 8.6 Magnesium 1.5 L Creatine Kinase 43 Troponin I < 0.05 Urine Color Yellow Urine Clarity Clear Urine pH 6.0 Ur Specific [place] 1.020 Urine Protein Negative Urine Ketones 15 H Urine Blood Trace-intact H Urine Nitrite Negative Urine Bilirubin Negative Urine Urobilinogen 0.2 Ur Leukocyte Esterase Negative Urine RBC 0-2 Urine WBC 0-2 Ur Epithelial Cells Rare Urine Crystals Negative Urine Bacteria Negative Urine Casts Negative Urine Mucus Negative Ur Culture Indicated? No Urine Glucose Negative Imaging Additional studies: CXR: No acute pulmonary findings. Per my read, the patient has hyperinflated lungs with appearance strongly suggestive of COPD. EKG: NSR, HR 89, old anteroseptal infarct. Of note, in 2011, the patient had an equivocal stress echocardiogram.
[2020-03-27] MEDS: Heparin 5,000 UNITS/ML VIAL 5000 UNITS SC (14:12)
[2020-03-27] MEDS: Normal Saline Flush 10 ML SYR IVP (14:13)
[2020-03-27] MEDS: HYDROmorphone 2 MG/ML VIAL 0.5 MG IVP (14:13)
--- NOTE | 2020-03-27 14:40 | DI.US_ITS ---
APPROVED REPORT EXAM: Comprehensive 2D, Doppler, and color-flow Echocardiogram Patient Location: In-Patient Room/Bed: [id number] Dip Lube Operator: Susan Regalado RDCS (AE) Indications: Abnormal EKG, Pre op Other Information Study Quality: Fair Conclusion This is a limited study due to patient's inability to tolerate full exam. Left Ventricle : The left ventricle is normal size. The left ventricular systolic function is normal. The left ventricular ejection fraction is within the normal range. There is normal left ventricular wall thickness. There is normal LV segmental wall motion. The left ventricular diastolic function is normal. LVEF is 55-60%. Right Ventricle : The right ventricle is normal size. The right ventricular systolic function is norm al. The RVSP is 42.5 mmHg. Atria : The left atrium size is normal. The right atrium size is normal. Aortic Valve : The Aortic valve is sclerotic. Aortic valve is trileaflet. Mild to moderate aortic reg urgitation. There is no aortic valvular stenosis. Great Vessels : The aortic root is normal in size. Ascending aorta is not well visualized. Aortic arc h is not well visualized. IVC is normal in size and collapses >50% with inspiration. Please see remainder of study for further details. Wall motion Left Ventricle The left ventricle is normal size. The left ventricular systolic function is normal. The left ventric ular ejection fraction is within the normal range. There is normal left ventricular wall thickness. T here is normal LV segmental wall motion. The left ventricular diastolic function is normal. There is no ventricular septal defect visualized. LVEF is 55-60%. Right Ventricle The right ventricle is normal size. The right ventricular systolic function is normal. The RVSP is 42 .5 mmHg. Atria The left atrium size is normal. The right atrium size is normal. The interatrial septum is intact wit h no evidence for an atrial septal defect. Aortic Valve The Aortic valve is sclerotic. Aortic valve is trileaflet. There is no aortic valvular stenosis. Mild to moderate aortic regurgitation. Mitral Valve Mild mitral annular calcification. No evidence of mitral valve stenosis. Trace to mild mitral regurgi tation. Tricuspid Valve The tricuspid valve is normal in structure. There is no tricuspid valve stenosis. Moderate tricuspid regurgitation. Pulmonic Valve The pulmonary valve is normal in structure. There is no pulmonic valvular stenosis. There is no pulmo thanh valvular regurgitation. Great Vessels The aortic root is normal in size. Ascending aorta is not well visualized. Aortic arch is not well vi sualized. IVC is normal in size and collapses >50% with inspiration. Pericardium Mild anterior pericardial effusion. 2D Dimensions IVSD d PLAX 0.68 cm F: 0.6-1.0 LV Vol A2C d MOD 34.7 mL LVPW d PLAX 0.68 cm F: 0.6 - 1.0 LV Vol A4C d MOD 38.1 mL LVID d PLAX 4.14 cm F: 3.8 - 5.2 LA vol/ BSA A2C s A-L 14.8 mL/m2 LVDs 2.95 cm F: 2.2 - 3.5 LA vol/ BSA A4C s A-L 19.7 mL/m2 Ao Root d 3.00 cm F: 2.7 - 3.3 LA Vol/ BSA Biplane s A-L 17.8 mL/m2 RA Area A4C 9.31 cm2 LA Area A4C s MOD 10.77 cm2 RA Vol/ BSA A4C s A-L 16.1 mL/m2 LA Area A2C s MOD 8.96 cm2 LV EF Teichholz 55.4 % LV EF A4C MOD 56.6 % LVEF (Jonas's) 56.53 % F: 54 - 74 LV EF A2C MOD 59.9 % LV Volume 33.29 mL F: 46 - 106 LV EF Biplane MOD 56.5 % LV Volume Index 27.51 mL/m2 F: 29 - 61 SV 20.60 mL LV Vol Biplane MOD 36.4 mL SV Index 17.04 mL/m2 FS 28.45 % M-Mode TAPSE 2.15 cm (M/F) >1.7 LV Diastology MV E' medial 0.104 (>0.07 m/s) E/A Ratio 0.9 LV E/e MED 9.95 (<14) MV E Vmax 1.03 (0.4-1.3 m/s) MV E' lateral 0.103 (>0.1 m/s) MV A Vmax 1.15 (0.4-1.3 m/s) LV E/e LAT 10.05 (<14) MV E/A Ratio 0.90 MV E/E' medial 9.96 MV E/E' lateral 10.08 Aortic Valve LVOT Area 3.12 cm2 AoV Area Vmax 2.46 cm2 LVOT Vmax 1.01 m/s AoV Area/ BSA (Vmax) 2.04 cm2/m2 LVOT Mean Ab. 0.63 m/s RICK Mean Ab. 2.41 cm2 LVOT Peak Grad 4.1 mmHg RICK Mean Ab. Index 1.99 cm2/m2 LVOT Mean Grad 1.9 mmHg AR DT 1192 msec LVOT VTI 0.258 m AR PHT 346 msec LVOT Diam s 1.95 cm AoV Vmax 1.28 m/s Velocity Ratio 0.78 AoV Mean Ab. 0.82 m/s AoV Peak Grad 6.6 mmHg LVOT SV 80.41 mL AoV Mean Grad 3.1 mmHg AoV VTI 0.276 m AoV Area VTI 2.91 cm2 AoV Area/ BSA (VTI) 2.41 cm/m2 Mitral Valve MV DT 140 (160-240 msec) MV PHT 40 msec MV Area PHT 5.44 cm2 Pulmonary Valve PV Vmax 0.91 (0.5-1.5 m/s) RVOT Peak Gr. 1.85 mmHg PV Peak Grad 3.3 mmHg RVOT Mean Gr. 1.05 mmHg PV Mean Grad 1.9 mmHg RVOT VTI 0.180 m PV VTI 0.222 m RVOT Vmax 0.68 m/s Tricuspid Valve TR Peak Grad 39.4 mmHg TR Vmax 3.14 m/s RA Pressure 3.00 mmHg RVSP (TR) 42.5 mmHg
[2020-03-27 17:10] LABS: NT-proBNP 706 pg/mL (<300)
[2020-03-27] MEDS: oxyCODONE 10 MG TAB PO (17:29)
[2020-03-27] MEDS: diazePAM 5 MG TAB PO (17:30)
[2020-03-27] MEDS: Nicotine 21 MG/24 HR PATCH TD (18:24)
[2020-03-27] MEDS: Nicotine 21 MG/24 HR PATCH (18:51)
[2020-03-27] MEDS: HYDROmorphone 2 MG/ML VIAL 1 MG IVP ×2 (20:13→23:23)
[2020-03-27] MEDS: Normal Saline 1,000 ML 100 ML IV (22:43)
[2020-03-28] VITALS (15 sets, daily range): BP systolic 106–201; BP diastolic 53–83; PULSE 90–109; RESP 12–18; TEMP 36.6–37.3; O2SAT 84–98
[2020-03-28] MEDS: Heparin 5,000 UNITS/ML VIAL 5000 UNITS SC (02:28)
[2020-03-28] MEDS: Ketorolac 15 MG/ML VIAL IVP ×2 (06:06→19:51)
[2020-03-28 06:53] LABS: Abs Immature Grans 0.04 10^3/uL (0.0-0.06); Absolute Basophil Count 0.04 10^3/uL (0.0-0.2); Absolute Eosinophil Count 0.15 10^3/uL (0.0-0.7); Absolute Lymphocyte Count 1.28 10^3/uL (1.2-3.4); Absolute Monocyte Count 1.13 10^3/uL (0.1-0.8); Absolute Neutrophil Count 5.95 10^3/uL (1.2-6.7); Basophils % 0.5; Eosinophils % 1.7; HCT 26.6 % (36.0-46.0); HGB 9.3 g/dL (11.2-15.7); Immature Grans % 0.5; Lymphocytes % 14.9; MCH 34.2 pg (27.0-33.0); MCV 97.8 fL (80-95); MPV 9.5 fL (8.0-11.0); Monocytes % 13.2; Neutrophils % 69.2; Nucleated RBC 0 %; Platelet Count 219 10^3/uL (130-400); RBC 2.72 10^6/uL (3.93-5.22); RDW 11.9 % (11.7-14.6); RDW-SD 42.8 fL; WBC 8.59 10^3/uL (4.4-10.8)
[2020-03-28] MEDS: HYDROmorphone 2 MG/ML VIAL 1 MG IVP ×2 (07:24→12:27)
[2020-03-28] MEDS: Normal Saline Flush 10 ML SYR IVP ×2 (07:25→12:26)
[2020-03-28 07:33] LABS: Anion Gap 5.5 mmol/L (3-11); BUN 16 mg/dL (7-18); CO2 26.5 mmol/L (21.0-32.0); CREATININE 0.55 mg/dL (0.55-1.02); Calcium 8.6 mg/dL (8.5-10.1); Chloride 96 mmol/L (98-107); Glucose 103 mg/dL (74-106); Magnesium 1.8 mg/dL (1.8-2.4); Potassium 4.2 mmol/L (3.5-5.1); Sodium 128 mmol/L (136-145); TSH (W/Ref FT4) 0.95 uIU/mL (0.36-3.74); Vitamin B12 275 pg/mL (193-986)
--- NOTE | 2020-03-28 07:41 | W.PM.PROGNOT ---
Date of Service Date of service: 03/28/20 Time of Service: 07:16 Assessment and Plan Assessment and plan (1) Fracture of femoral condyle, left, closed: Status: Acute Qualifiers: Encounter type: initial encounter Fracture alignment: displaced Qualified Code(s): S72.412A - Displaced unspecified condyle fracture of lower end of left femur, initial encounter for closed fracture (2) Fracture of femoral condyle, right, closed: Status: Acute Assessment and plan: Plan for operative fixation of bilateral distal femur fractures today. She appears stable except for a slightly downtrending hemoglobin. Given that we are doing both knees this may require transfusion but we will check postoperative hemoglobins. I once again reviewed the risk of the procedure to include bleeding, infection, pain, stiffness, hardware failure, heart prominence, hardware loosening, malunion, nonunion, refracture, need for repeat procedures, blood clot, cardiopulmonary demise. Despite these risk, she elected to proceed. Consent was reviewed the patient and signed. Both knees were marked. All questions were answered. Qualifiers: Encounter type: initial encounter Fracture alignment: displaced Qualified Code(s): S72.411A - Displaced unspecified condyle fracture of lower end of right femur, initial encounter for closed fracture (3) Hyponatremia: Status: Acute Assessment and plan: Slowly improving. We will continue with gentle hydration and follow recommendations from hospitalist. Subjective Subjective Patient reports: no new complaints and still having pain Interval history since last seen: Uri has continued have pain. She finds it difficult to find a comfortable position. She has had an increase in her pain medication which is helped out slightly. She denies any chest pain or shortness of breath. She has been seen by hospital medicine who required an EKG and an echo, both of which have shown no significant abnormalities which would restrict surgery. Troponins were negative. Exam Narrative Exam Narrative: Resting the bed in a cause a right lower decubitus position with the right knee flexed at about 100 degrees and the left knee flexed at about 40 degrees. Effusions are present both knees. No overlying skin changes. No skin defects. Both knees are marked. Objective Last Vital Signs Temp 37.1 C 03/28/20 07:20 Pulse 101 H 03/28/20 07:20 Resp 17 03/28/20 07:20 BP 148/79 H 03/28/20 07:20 Pulse Ox 95 03/28/20 07:20 Laboratory Results - last 24 hr 03/27/20 03/27/20 03/27/20 08:20 08:20 08:20 WBC 8.01 D RBC 2.94 L Hgb 9.9 L Hct 29.2 L MCV 99.3 H MCH 33.7 H MCHC 33.9 RDW 11.7 Plt Count 231 MPV 8.9 Immature Gran % 0.5 Neutrophils % 64.8 Lymphocytes % 16.9 Monocytes % 14.4 Eosinophils % 3.2 Basophils % 0.2 Nucleated RBC % 0 Absolute Neutrophils 5.19 Absolute Lymphocytes 1.35 Absolute Monocytes 1.15 H Absolute Eosinophils 0.26 Absolute Basophils 0.02 Sodium 127 L Potassium 4.2 Chloride 94 L Carbon Dioxide 27.6 Anion Gap 5.4 BUN 12 Creatinine 0.56 Estimated GFR/1.73 m2 >= 60.00 Glucose 89 Calcium 8.6 Magnesium 1.5 L Creatine Kinase 43 Troponin I < 0.05 NT-Pro-B Natriuret Pep 706 H Vitamin B12 Folate TSH 03/28/20 03/28/20 06:25 06:25 WBC 8.59 RBC 2.72 L Hgb 9.3 L Hct 26.6 L MCV 97.8 H MCH 34.2 H MCHC 35.0 RDW 11.9 Plt Count 219 MPV 9.5 Immature Gran % 0.5 Neutrophils % 69.2 Lymphocytes % 14.9 Monocytes % 13.2 Eosinophils % 1.7 Basophils % 0.5 Nucleated RBC % 0 Absolute Neutrophils 5.95 Absolute Lymphocytes 1.28 Absolute Monocytes 1.13 H Absolute Eosinophils 0.15 Absolute Basophils 0.04 Sodium 128 L Potassium 4.2 Chloride 96 L Carbon Dioxide 26.5 Anion Gap 5.5 BUN 16 Creatinine 0.55 Estimated GFR/1.73 m2 >= 60.00 Glucose 103 Calcium 8.6 Magnesium 1.8 Creatine Kinase Troponin I NT-Pro-B Natriuret Pep Vitamin B12 275 Folate 11.0 TSH 0.95
[2020-03-28] MEDS: Normal Saline 1,000 ML 100 ML IV (08:52)
--- NOTE | 2020-03-28 10:22 | PHA.REVIEW ---
Pharmacy Admission Review - Admission Clinical Review (Last Updated 03/27/20 @ 13:45 by Raeann Mota MD) DVT prophylaxis (Acute) Lesion of nose (Acute) Fracture of femoral condyle, left, closed (Acute) Fracture of femoral condyle, right, closed (Acute) Hyponatremia (Acute) lorazepam Allergy (Severe, Verified 07/29/19 09:56) Visual Disturbances Penicillins Allergy (Unknown, Unverified 07/29/19 09:56) Height 5 ft Weight 34.5 kg - Renal Dosing Renal Dosing: BUN 16 mg/dL (7-18) 03/28/20 06:25 Creatinine 0.55 mg/dL (0.55-1.02) 03/28/20 06:25 Medications needing adjustments: Reviewed (crcl ~33ml/min) - Anticoagulation Anticoagulation: Hgb Cancelled 03/28/20 08:30 Hct Cancelled 03/28/20 08:30 Plt Count Cancelled 03/28/20 08:30 INR 1.1 (0.9-1.1) 03/26/20 15:35 Creatinine 0.55 mg/dL (0.55-1.02) 03/28/20 06:25 DVT Prohphylaxis: N/A (surgery today) Therapeutic Anticoagulation: N/A - Opiate Usage Scheduled Bowel Reg ordered if on Opiates?: Yes - Relevant Labs Sodium 128 mmol/L (136-145) L 03/28/20 06:25 Potassium 4.2 mmol/L (3.5-5.1) 03/28/20 06:25 Chloride 96 mmol/L (98-107) L 03/28/20 06:25 Magnesium 1.8 mg/dL (1.8-2.4) 03/28/20 06:25 - DM Control DM Control: Glucose 103 mg/dL (74-106) 03/28/20 06:25 - Heart Failure/MA Heart Failure/MA: Troponin I < 0.05 ng/mL (<0.06) 03/27/20 08:20 NT-Pro-B Natriuret Pep 706 pg/mL (<300) H 03/27/20 08:20 - BP Control BP Control: Blood Pressure 148/79 Blood Pressure 131/74 Blood Pressure 94/57 - Home Meds Home Med List reviewed: Reviewed Relevent Home Meds Not ordered & why?: lisinopril not ordered due to hyponatremia - Current meds Current Medication Order Review: Reviewed (possible surgery today, provider waiting for ECHO results)
--- NOTE | 2020-03-28 12:04 | CMPROGNOTE_ITS ---
- If Service Date Differs Date of service: 03/28/20 Time of Service: 12:04 Care Management Progress Note S/O:Johnny, is in the OR at time of CM visit. CM did fax prescription for wheelchair to [facility]. Discharge plan to be determined pending how well she does after surgery. Family intends to care for her at home she will need home health services for nursing, PT and OT at time of discharge. A: Johnny is a 74 year old patient admitted with bilateral femur fractures anticipate repair on 03/28/20. P:Anticipate surgery on 03/28 by . Anticipate she will need new home health all services and a wheelchair which CM faxed an order to [facility] with notes to support need. CM will continue to assess for ongoing discharge needs.
--- NOTE | 2020-03-28 12:14 | NS.NUTBLAN_ITS ---
Date of service: 03/28/20 Time of Service: 12:14 Nutritional Consult ASSESSMENT: 74 year old female admitted with bilateral femor fractures, awaiting surgery 03/29/20. Met with Nelli today. She reports current weight has been stable > 12 months. BMI 15 indicates severe underweight status. 75% of [place] body weight. PMH: malnutrition, osteoporosis, tobacoo/alcohol abuse. Meds include MVI, thiamin and calcium for repletion. At high risk for nutritional decline in view of low weight and increased nutrient needs. Nelli presents with severe malnutrition in context of chronic illness. Estimated Needs: 1000- 1300 kcal, 45-55 g protein. NUTRITIONAL DIAGNOSIS: severe malnutrition in view of chronic illness and increased nutrient needs INTERVENTION: Currently NPO, when diet advanced, supplement with sugey. milk at meals and ice cream per pt preference MONITORING AND EVALUATION: weight, po intake, labs Time Spent in Nutritional Counseling and Treatment: 15 min spent face to face
--- NOTE | 2020-03-28 12:23 | W.PM.PROGNOT ---
Date of Service Date of service: 03/28/20 Time of Service: 12:23 Assessment and Plan Assessment and plan (1) Fracture of femoral condyle, left, closed: Status: Acute Assessment and plan: Patient is low cardiac risk for this moderate intrinsic cardiac risk surgery. Ok to proceed with surgery per medicine. Continue vitamin D supplementation, calcium. I reinforced smoking cessation. Patient is on a bowel regimen. Continue IS. Qualifiers: Encounter type: initial encounter Fracture alignment: displaced Qualified Code(s): S72.412A - Displaced unspecified condyle fracture of lower end of left femur, initial encounter for closed fracture (2) Fracture of femoral condyle, right, closed: Status: Acute Assessment and plan: As above Qualifiers: Encounter type: initial encounter Fracture alignment: displaced Qualified Code(s): S72.411A - Displaced unspecified condyle fracture of lower end of right femur, initial encounter for closed fracture (3) Abnormal EKG: Status: Chronic Assessment and plan: Echo without wall motion abnormalities. Ok to proceed with surgery. Would benefit from a stress test on routine basis as outpatient. (4) Pulmonary hypertension: Status: Acute Assessment and plan: Moderate, RVSP of 42.5 mmHg. Probably related to underlying lung disease (I suspect the patient does have COPD based on the appearance of her CXR). She would benefit from PFTs and a sleep study as outpatient. (5) Essential hypertension: Status: Chronic Assessment and plan: Given hyponatremia, continue to hold marylin-i. Should she require antihypertensives, consider CCB. (6) Osteoporosis: Status: Chronic Assessment and plan: As above - continue calcium and vitamin D repletion. Would benefit from a bisphosphonate. (7) Tobacco use: Status: Chronic Assessment and plan: advised to quit. Continue nicotine replacement. (8) ETOH abuse: Status: Chronic Assessment and plan: Not currently withdrawing from alcohol. Continue CIWA, provide MVI, thiamine. (9) Malnutrition: Status: Chronic Assessment and plan: Nutrition consulted. (10) DVT prophylaxis: Status: Acute Assessment and plan: Defer to primary team. Subjective Subjective Interval history since last seen: Ms Xie states that her pain is 7/10. She can't wait to have surgery. She only worked with IS twice today - I spoke with her about doing it more. She reports her usual cough. Denies dizziness, chest pain, shortness of breath, nausea. Planned to undergo surgery this afternoon. Exam Narrative Exam Narrative: General: pleasant elderly female, who looks uncomfortable in bed, A&Ox3 HEENT: EOMI, MMM Heart: RRR, no m/r/g Lungs: wheezing which clears with coughing Abdomen: soft, nontender, nondistended Extremities: BLE bent at the knees, able to move toes on both feet Objective Last Vital Signs Temp 37.2 C 03/28/20 11:53 Pulse 90 03/28/20 11:53 Resp 16 03/28/20 11:53 BP 152/73 H 03/28/20 11:53 Pulse Ox 96 03/28/20 11:53 Laboratory Results - last 24 hr 03/27/20 03/28/20 03/28/20 08:20 06:25 06:25 WBC 8.59 RBC 2.72 L Hgb 9.3 L Hct 26.6 L MCV 97.8 H MCH 34.2 H MCHC 35.0 RDW 11.9 Plt Count 219 MPV 9.5 Immature Gran % 0.5 Neutrophils % 69.2 Lymphocytes % 14.9 Monocytes % 13.2 Eosinophils % 1.7 Basophils % 0.5 Nucleated RBC % 0 Absolute Neutrophils 5.95 Absolute Lymphocytes 1.28 Absolute Monocytes 1.13 H Absolute Eosinophils 0.15 Absolute Basophils 0.04 Sodium 128 L Potassium 4.2 Chloride 96 L Carbon Dioxide 26.5 Anion Gap 5.5 BUN 16 Creatinine 0.55 Estimated GFR/1.73 m2 >= 60.00 Glucose 103 Calcium 8.6 Magnesium 1.8 NT-Pro-B Natriuret Pep 706 H Vitamin B12 275 Folate 11.0 TSH 0.95 03/28/20 08:30 WBC Cancelled RBC Cancelled Hgb Cancelled Hct Cancelled MCV Cancelled MCH Cancelled MCHC Cancelled RDW Cancelled Plt Count Cancelled MPV Cancelled Immature Gran % Neutrophils % Lymphocytes % Monocytes % Eosinophils % Basophils % Nucleated RBC % Absolute Neutrophils Absolute Lymphocytes Absolute Monocytes Absolute Eosinophils Absolute Basophils Sodium Potassium Chloride Carbon Dioxide Anion Gap BUN Creatinine Estimated GFR/1.73 m2 Glucose Calcium Magnesium NT-Pro-B Natriuret Pep Vitamin B12 Folate TSH Objective Narrative Objective Narrative: Echo: This is a limited study due to patient's inability to tolerate full exam. Left Ventricle : The left ventricle is normal size. The left ventricular systolic function is normal. The left ventricular ejection fraction is within the normal range. There is normal left ventricular wall thickness. There is normal LV segmental wall motion. The left ventricular diastolic function is normal. LVEF is 55-60%. Right Ventricle : The right ventricle is normal size. The right ventricular systolic function is normal. The RVSP is 42.5 mmHg. Atria : The left atrium size is normal. The right atrium size is normal. Aortic Valve : The Aortic valve is sclerotic. Aortic valve is trileaflet. Mild to moderate aortic regurgitation. There is no aortic valvular stenosis. Great Vessels : The aortic root is normal in size. Ascending aorta is not well visualized. Aortic arch is not well visualized. IVC is normal in size and collapses >50% with inspiration. Please see remainder of study for further details. CXR: No acute pulmonary findings.
[2020-03-28] MEDS: ceFAZolin 1 GM/50 ML BAG IVPB ×2 (13:44→21:47)
[2020-03-28] MEDS: Lactated Ringers 1,000 ML 80 ML IV ×2 (13:55→21:26)
[2020-03-28] MEDS: Bupivacaine 0.25% Pres-Free 30 ML VIAL (14:04)
[2020-03-28] MEDS: Ketorolac 30 MG/ML VIAL (14:08)
[2020-03-28 15:22] LABS: SARS-CoV-2 RNA Not Detected (NotDetected); SARS-CoV-2 RNA Source Nasal/Nares
--- NOTE | 2020-03-28 15:57 | DI.RAD_ITS ---
EXAM: XR FEMUR RT CLINICAL HISTORY: bilateral distal femur fractures TECHNIQUE: 2D and realtime digital imaging was performed. CONTRAST MATERIAL: Refer to procedure report. COMPARISON: CR,XR XR KNEE RT 4V AP,LAT,ARIELA,PAT from 03/26/[address] LOWER EXTREMITY RT WO from 03/26/2020 FINDINGS: Fluoroscopy was provided for Dr. Curry during the performance of a reduction and internal fixatio n of the distal right femoral fracture. Please refer to the procedure report for complete details. Fluoro time: 61.6 seconds IMPRESSION: RADIATION DOSE DELIVERED:
--- NOTE | 2020-03-28 15:58 | DI.RAD_ITS ---
EXAM: XR FEMUR LT CLINICAL HISTORY: bilateral distal femur fracture TECHNIQUE: 2D and realtime digital imaging was performed. CONTRAST MATERIAL: Refer to procedure report. COMPARISON: CR,XR XR KNEE LT 4V AP,LAT,ARIELA,PAT from 03/26/2020 FINDINGS: Fluoroscopy was provided for Dr. Curry during the performance of a reduction and internal fixatio n of the distal left femoral fracture. Please refer to the procedure report for complete details. Fluoro time: 61.6 seconds IMPRESSION: RADIATION DOSE DELIVERED:
[2020-03-28] MEDS: HYDROmorphone 2 MG/ML VIAL IVP ×2 (16:12→16:25)
[2020-03-28] MEDS: ACETAMINOPHEN 1,000 MG/100 ML BTL 400 MG IVPB (16:30)
[2020-03-28] MEDS: oxyCODONE 5 MG TAB 10 MG PO ×2 (17:03→19:50)
[2020-03-28] MEDS: amLODIPine 5 MG TAB PO (17:38)
[2020-03-28] MEDS: Docusate Sodium 100 MG CAP PO (19:50)
[2020-03-28] MEDS: Senna TAB 1 TAB PO (19:51)
[2020-03-28] MEDS: Calcium Carbonate 1.5 GM TAB PO (19:51)
[2020-03-28 21:39] LABS: HGB 7.6 g/dL (11.2-15.7)
--- NOTE | 2020-03-28 21:46 | W.PM.OP ---
Date of service: 03/28/20 Time of Service: 16:03 Operative Note Operative Note DATE OF PROCEDURE: 03/28/20 PRE-OP DIAGNOSIS: Bilateral Distal Femur Fractures, Intraarticular POST-OP DIAGNOSIS: same PROCEDURE: Open Reduction and Internal Fixation of Bilateral Distal Femur Fracture with Intercondylar split SURGEON: Amando Curry BILINGUAL STUDENT TUTOR: Deepak Cheatham ANESTHESIA: spinal ESTIMATED BLOOD LOSS: 200 PATHOLOGY: none sent TOURNIQUET TIME: 0 COMPLICATIONS: None Patient was transported to: PACU Patient's condition: stable Implants: 6 hole Synthes Distal Femur Periarticular Locking Plate (x2) 4.5mm cannulated lag screws Indications: Uri is a 74-year-old who suffered a fall onto bilateral knees resulting in bilateral distal femur fractures with intra-articular extension between the distal femoral condyles. She had significant pain and inability bear weight and given the injuries I recommended operative fixation. She was admitted to the hospital for pain control and preoperative clearance. I reviewed treatment options with her. She was independent with ambulation prior to these falls although with a history of significant osteoporosis. After review of treatment options she agreed to proceed with surgery. I reviewed the risk of the surgery to include bleeding, infection, pain, stiffness, nonunion, nonunion, hardware failure, hardware prominence, need for repeat procedures, damage to nerves and vessels, blood clot, cardiopulmonary demise. Despite these risks, she elected to proceed. Findings: There are fractures of the lateral condyle of each femur. The fracture pattern is mostly transverse just above the condylar eminence with extension into the intercondylar space of the trochlea. The intercondylar split was reduced and each and held with lag screws. In general, the bone quality in this metaphyseal and peritubular region was quite poor. The bone was soft and provided very little resistance for screw placement. Periarticular locking plate was utilized to secure the fragment also provide buttress. Procedure Description: Uri was greeted in the preoperative holding area. Her identity was previously confirmed and the sites were marked. The consent was reviewed the patient on the floor. She was taken back to the operating room where a spinal anesthetic was administered. After successful administration of the spinal she was placed in the supine position. All bony prominences were well padded. Her arms were secured on arm boards. Prophylactic antibiotics in the form of cefazolin were administered. Tranexamic acid 1 g was also given prior to incision. Both legs were prepped ChloraPrep and draped in a standard fashion with stockinettes on the feet. No tourniquet was used. A timeout was performed for safe surgery. Starting with the left leg a slightly curvilinear incision was made overlying the lateral side of the femur, IT band extending over to Su's. The skin was incised sharply. The IT band was then split in line of its fibers. Was then opened up in the synovium and capsule were incised. Significant fracture hematoma was evacuated. A boucher elevator was used to elevate off the soft tissue from the anterior lateral femur. Retractors were placed across the femur for better visualization. The fracture was identified as a transverse fracture exiting out just above the lateral epicondyle and extending into the notch. There was some distraction of about 5 mm at the time. A manual reduction was performed of the fracture fragment and secured with a clamp as well as a K wire. X-ray was used to show appropriate positioning. There still seem to be some residual gap on the x-ray but in visual inspection there was none. Therefore, I placed a single 4.5 mm cannulated screw. This was used to lag the fracture fragment through the notch together. The bone quality and here was quite challenging. It was very soft and little purchase was really obtained with the screw itself even there was a bicortical screw. Therefore, I used a lateral plate not only as a buttress but also to transfix the fracture with locking screws. Fracture fragment was quite small but a 6-hole plate provided 3 holes through the fracture fragments. The plate was slid onto the femur. Was secured in place with K wires. X-ray was used to confirm appropriate position of the plate on the femur. Once this was in position it was held secured to bone and 3 locking screws were placed in the distal fragment. These were drilled and measured and placed. Fluoroscopy was used to confirm appropriate positioning. I then placed 3 proximal locking screws. These were placed using the targeting arm in a bicortical fashion. A nonlocking screw placed more close to the fracture in the diaphyseal metaphyseal junction had very poor purchase even that was bicortical. The purchase of the screws proximally was much better. The wound was then thoroughly irrigated. The deep tissues were injected with a portion of a cocktail of 30 mg of ketorolac, 50 cc of 0.25% bupivacaine, 20 cc of Exparel, and 50 cc normal saline or expansion. The IT band was closed with a #1 Vicryl. Deep layer was closed with 2-0 Vicryl. The skin was closed with a running 4-0 Monocryl. A Mepilex silver dressing was applied. We then turned attention to the right leg. A similar type incision was made overlying the IT band extending over Su's tubercle. The IT band was incised in line with its fibers. His tissues were and the deeper layer was incised to expose the joint surface. Fracture toe was evacuated. The fracture site was evaluated and irrigated and removed of any clot material. A boucher elevator was used to elevate out soft tissues about the anterior and lateral femur. Retractors placed across the femur which identified the fracture fragments a transverse fracture exiting just above the lateral condyle and extending into the notch similar to the left side. I then manually reduce the fracture fragment held this there with a K wire from the 4.5 mm cannulated screw set. X-ray confirmed appropriate positioning but did show a gap. However, under visual inspection there is some minor translation but no gapping appreciated. I tried to reduce this better with the care removed but it was difficult to manipulate the bone given the poor quality of the bone and how soft it was. Therefore, I did except some very minor translation but no gap at the fracture site. A single 4.5 mm cannulated screw was first placed. However, had no purchase into the lateral cortex and fell into the cortex itself. Therefore, I placed a second 4.5 mm cannulated screw. This had much better purchase of lag in the fracture site together. I then placed a 6-hole periarticular lateral femur plate onto the lateral femur. I secured in place and held it with a K wire. 3 locking screws were placed distally into the distal fragment after confirming that the plate was appropriately positioned onto the femur. The 3 locking screws were placed under fluoroscopic guidance. Using the targeting arm, I placed 3 proximal screws similar to the left side. The wounds and thoroughly irrigated. The deep tissues were then injected with a mixture of the previously mentioned cocktail. The IT band was closed with #1 Vicryl. The deep tissues closed with 2-0 Vicryl. Skin was closed with a running 4-0 Monocryl. Mepilex silver dressings were appliedOtto Grewal tolerated the procedure well and was awakened from her light sedation without suffering any notable medical or surgical complication. She was transferred to PACU in stable condition.
[2020-03-28] MEDS: diphenhydrAMINE 25 MG CAP PO (23:59)
[2020-03-28] MEDS: Acetaminophen 325 MG TAB 650 MG PO (23:59)
[2020-03-29] VITALS (10 sets, daily range): BP systolic 119–163; BP diastolic 61–77; PULSE 89–111; RESP 14–20; TEMP 35.9–37.3; O2SAT 93–99
[2020-03-29] MEDS: Ketorolac 15 MG/ML VIAL IVP ×3 (03:59→20:58)
[2020-03-29] MEDS: Acetaminophen 325 MG TAB 650 MG PO ×3 (06:06→17:45)
[2020-03-29] MEDS: ceFAZolin 1 GM/50 ML BAG IVPB ×2 (06:07→14:47)
[2020-03-29 07:10] LABS: HCT 26.5 % (36.0-46.0); MCH 31.8 pg (27.0-33.0); MCV 93.6 fL (80-95); MPV 9.5 fL (8.0-11.0); Platelet Count 178 10^3/uL (130-400); RBC 2.83 10^6/uL (3.93-5.22); RDW 13.9 % (11.7-14.6); RDW-SD 47.6 fL
[2020-03-29 07:27] LABS: Anion Gap 8.6 mmol/L (3-11); BUN 9 mg/dL (7-18); CO2 24.4 mmol/L (21.0-32.0); CREATININE 0.59 mg/dL (0.55-1.02); Chloride 94 mmol/L (98-107); Glucose 93 mg/dL (74-106); Magnesium 1.2 mg/dL (1.8-2.4); Potassium 4.2 mmol/L (3.5-5.1); Sodium 127 mmol/L (136-145)
[2020-03-29] MEDS: Multivitamin TAB 1 TAB PO (08:22)
[2020-03-29] MEDS: Cholecalciferol (Vitamin D3) 1,000 UNIT TAB 2000 UNITS PO (08:22)
[2020-03-29] MEDS: Senna TAB 1 TAB PO ×2 (08:22→20:57)
[2020-03-29] MEDS: Thiamine 100 MG TAB PO (08:22)
[2020-03-29] MEDS: amLODIPine 5 MG TAB PO (08:22)
[2020-03-29] MEDS: Calcium Carbonate 1.5 GM TAB PO ×2 (08:22→20:57)
[2020-03-29] MEDS: Cyanocobalamin 500 MCG TAB 1000 MCG PO (08:23)
[2020-03-29] MEDS: Docusate Sodium 100 MG CAP PO ×2 (08:23→20:57)
[2020-03-29] MEDS: Nicotine 21 MG/24 HR PATCH TD (08:23)
[2020-03-29] MEDS: Enoxaparin 40 MG/0.4 ML SYR SC (08:24)
[2020-03-29] MEDS: MAGNESIUM SULFATE 4 GM/100 ML BAG IVPB (10:25)
[2020-03-29] MEDS: oxyCODONE 5 MG TAB 10 MG PO ×3 (10:36→20:58)
--- NOTE | 2020-03-29 11:11 | IN_ITS ---
Date of service: 03/29/20 Time of Service: 10:00 PT Notes Visit Reasons: BILAT FEMORAL CONDYLE FRACS,HYPONATREMIA,NOSE LESI Physical Therapy Inpatient Initial Evaluation Date: 03/29/2020 Referring Doctor: Amando Curry MD PT Orders: PT CONSULT: Status post Ortho surgery. Status post bilateral distal femoral ORIF. Transfer only. NWB otherwise. Precautions: Fall. Standard. WBAT on B LE for transfers only. Patient Profile/Admitting Diagnosis: Nelli is a 74-year-old female who presented to the ED on 03/26/2020 due to bilateral knee pain and tenderness sustained from a mechanical fall. Patient is diagnosed with bilateral distal femoral fracture status post open reduction internal fixation with intercondylar split on postoperative day 1. PMHX: Medical History Basal cell carcinoma of nose (07/12/15) Cataract Essential hypertension ETOH abuse Proximal humerus fracture (07/20/17) Tobacco use Surgical History History of basal cell carcinoma (BCC) excision History of esophagogastroduodenoscopy (EGD) History of tubal ligation Social History/Home Situation: Lives with and children and grandchildren in a private home with 4 steps to enter. She states that her family is having a ramp built for her ready for when she goes home. She was independent with all ADLs without an assistive device nor adaptive equipment. No falls in the past 12 months. Equipment Owned/DME: None Subjective: This has been a busy day for me, lots of things happening and lots of people coming in and out. Complained of pain in both thighs and knees with transfers and B LE movement. Desires to go home whenever ready to do so. Does not want to go to a retirement facility. Objective: General Observation: Supine in bed. IV in left UE. Mepilex Ag over surgical incisions in bilateral thighs and knees. Mild redness and swelling to L distal thigh and proximal leg. Snow catheter in place. Telemetry monitoring in place. Mental Status: Alert and oriented x4 Pain: Moaned in pain during transfer from bed to wheelchair ROM: Right Upper Extremity: Shoulder Flexion WFL. Shoulder abduction WFL. Elbow flexion WFL. Wrist flexion WFL. Opening and closing of hand WFL. Left Upper Extremity: Shoulder Flexion WFL. Shoulder abduction WFL. Elbow flexion WFL. Wrist flexion WFL. Opening and closing of hand WFL. Right Lower Extremity: Hip flexion allows up to 20 degrees in supine with significant pain, able to sit with hips and knees to about 80 degrees of bed. Hip abduction allows up to 5 degrees in supine with significant pain. Knee flexion allows up to 20 degrees in supine with significant pain. Ankle dorsiflexion WFL. Ankle plantarflexion WFL. Left Lower Extremity: Hip flexion allows up to 10 degrees in supine with significant pain, able to sit with hips and knees to about 80 degrees of bed. Hip abduction allows up to 5 degrees in supine with significant pain. Knee flexion allows up to 10 degrees in supine with significant pain. Ankle dorsiflexion WFL. Ankle plantarflexion WFL. Strength: Right Upper Extremity: Shoulder flexors 4-/5. Shoulder abductors 4-/5. Elbow flexors 4-/5. Elbow extensors 4-/5. Hair Stylist strong. Left Upper Extremity: Shoulder flexors 4-/5. Shoulder abductors 4-/5. Elbow flexors 4-/5. Elbow extensors 4-/5. Hair Stylist strong. Right Lower Extremity: Hip flexors 2-/5. Hip abductors 2--/5. Knee flexors 3-/5. Knee extensors 3-/5. Ankle dorsiflexors 3-/5. Ankle plantarflexors 3-/5. Left Lower Extremity: Hip flexors 2-/5. Hip abductors 2--/5. Knee flexors 3-/5. Knee extensors 3-/5. Ankle dorsiflexors 3-/5. Ankle plantarflexors 3-/5. Sensation: Intact as to pain and pressure on bilateral lower extremities. Bed Mobility/Transfers: Supine to sit moderate assist of 2 with HOB at 45 degrees Sit to stand minimal assist of 2 Stand to sit contact guard assist of 2 Bed to chair minimal assist of 2 Gait: Stand pivot transfer only from edge of bed to chair with minimal assist of 2, stand by assist of MANAGER OF SUPPLY CHAIN, and moderate verbal cueing for safe technique. Significant pain reported during weight-bearing but did not require extensive help form PT and BRAKE DRUM MOLDER. Unable to extend trunk due to pain level. Balance: Good Static Sitting: Dynamic Sitting: Fair Static Standing: Unable Dynamic Standing: Unable Special Tests: Mobility Limitations Standardized Measure [employer] AM-PAC 6 clicks Basic Mobility Inpatient Short Form: Raw Score: 10 CMS Score: 77% deficit Informed Consent/Education: Patient instructed in purpose of PT consult and plan of care. Assessment: Nelli demonstrates significant functional mobility decline requiring the help of 2 people for all bed mobility and task performance. Stand pivot transfers only. Unable to perform ambulation activity per orthopedic surgeon's order. She will require the use of a regular wheelchair for indoor mobility to maximize independence with mobility related ADL performance and reduce fall risk while ensuring compliance with weight bearing precaution by orthopedic surgeon. She will have the support of her spouse and family members for all other ADL tasks. Patient presents with clinical signs and symptoms consistent with current/admitting diagnoses that have resulted to mobility limitations, gait instability, generalized weakness, and impairment of motor control as demonstrated by the following impairment level findings: 1. Decreased strength to BUE/LE major muscle groups 2. Impaired sitting/standing balance 3. Impaired activity tolerance 4. Limitation of joint range of motion in B LE 5. NWB on B LE per orthopedic surgeon 6. Significant pain level in bilateral lower extremities 7. Fear of falling Impairments are contributing to the following functional limitations: 1. Dependent bed mobility skills 2. Increased dependence with transfers 3. Inability to ambulate per orthopedic surgeon's order 4. Increase completion time for mobility ADL performance 5. Increased fall risk Patient is assessed as a [id number] high complexity based on the following: History: 74-year-old female with impairment level findings, functional limitations, and past medical history as indicated above Examination: Demonstrable impairment in strength, balance, and mobility level with underlying impairments and functional limitations as documented above Presentation:Evolving Decision Makin high complexity Goals: Goals X1 week 1. Supine-Sit standby assist 2. Sit-Supine standby assist 3. Sit-Stand minimal assist 4. Stand-Sit minimal assist 5. Bed-Chair minimal assist using stand pivot transfer/slide board transfer 6. Chair-Bed minimal assist using stand pivot transfer//slide board transfer 7. Independent wheelchair self propulsion/management for 100 feet using correct technique Plan of Care/Treatment Plan: 1-2x/day, 7 days/week x 1 week. Plan of care has been reviewed with the BRAKE DRUM MOLDER providing the service under Physical Therapy direction. Initiate Physical Therapy intervention for strengthening, bed mobility, transfers, gait, stairs, balance training, use of assistive device. DISCHARGE RECOMMENDATIONS: Nelli will highly benefit from the use of wheelchair for all indoor mobility in order to fall risk and comply with orthopedic surgeons weight bearing precautions. Patient will benefit from home health PT services in order to progress mobility level using least restrictive assistive ambulatory device, assess home safety, identify additional equipment needs, and establish a functional maintenance program that will increase ability of patient to remain at home. TREATMENT CODE/TIME: 89682 x 26 minutes, 43851 x 25 minutes beginning at 10:00 AM and 11:11AM. Thank you for the opportunity to participate in the care of this patient. Teresa Silverman PT, DPT, CLT [facility] [place], [place]
[2020-03-29] MEDS: Normal Saline Flush 10 ML SYR IVP (12:38)
--- NOTE | 2020-03-29 13:33 | PT.INTREAT ---
Date of service: 03/29/20 Time of Service: 13:00 PT Notes Visit Reasons: BILAT FEMORAL CONDYLE FRACS,HYPONATREMIA,NOSE LESI Inpatient Physical Therapy Treatment Note [facility] Date: 03/29/2020 PRECAUTIONS: Fall, NWB B LE (with the exception of bed-chair transfers) SUBJECTIVE: Uri states that she feels she sat up in the chair too long, her B LE are sore and she'd like to get back to bed. OBJECTIVE: PAIN: Patient c/o B LE pain with ther ex, transfers, and weight bearing (during transfer) BED MOBILITY/TRANSFERS Sit-supine: Min A + Mod A Sit-stand: Mod A x2 Stand-sit: Min A x2 Chair-bed: Min A x2 GAIT Assistive Device: FWW Weight bearing: NWB B LE - with the exception of transfers Assist: Min A x2 Distance: Stand-pivot transfer from chair-bed Deviation: Minimal assist with FWW mechanics THEREX: Patient was instructed in several LE strengthening and stabilization, while in a long-sitting position. She was able to tolerate ankle pumps, glute sets, assisted hip abduction, and assisted SLR, although c/o increased pain and only tolerated minimal reps. She was unable to perform quad sets. She states okay, that's enough now. ASSESSMENT: Patient tolerated session with c/o B LE pain, L>R, with transfers, weight bearing (during transfer), and ther ex. She was bethaine to demonstrate ability to perform transfers with minimal assistance and assist for FWW management. PLAN: Continue with transfer training, as well as LE strengthening as tolerated. TREATMENT CODE/TIME: 25 minutes; 43521, [id number]
[2020-03-29] MEDS: Lactated Ringers 1,000 ML 80 ML IV (14:46)
--- NOTE | 2020-03-29 15:03 | W.PM.PROGNOT ---
Date of Service Date of service: 03/29/20 Time of Service: 15:03 Assessment and Plan Assessment and plan (1) Fracture of femoral condyle, left, closed: Status: Acute Assessment and plan: S/p ORIF B distal femoral fx. Continue vitamin D supplementation, calcium. Patient is on a bowel regimen. Encourage IS - I have asked RT to work with her. Qualifiers: Encounter type: initial encounter Fracture alignment: displaced Qualified Code(s): S72.412A - Displaced unspecified condyle fracture of lower end of left femur, initial encounter for closed fracture (2) Fracture of femoral condyle, right, closed: Status: Acute Assessment and plan: As above Qualifiers: Encounter type: initial encounter Fracture alignment: displaced Qualified Code(s): S72.411A - Displaced unspecified condyle fracture of lower end of right femur, initial encounter for closed fracture (3) Abnormal EKG: Status: Chronic Assessment and plan: Echo without wall motion abnormalities. Would benefit from a stress test on routine basis as outpatient. (4) Pulmonary hypertension: Status: Acute Assessment and plan: Moderate, RVSP of 42.5 mmHg. Probably related to underlying lung disease (I suspect the patient does have COPD based on the appearance of her CXR). She would benefit from PFTs and a sleep study as outpatient. (5) Essential hypertension: Status: Chronic Assessment and plan: Started on CCB. At this point, pain is likely also a contributor. (6) Osteoporosis: Status: Chronic Assessment and plan: As above - continue calcium and vitamin D repletion. Would benefit from a bisphosphonate. (7) Tobacco use: Status: Chronic Assessment and plan: advised to quit. Continue nicotine replacement. (8) ETOH abuse: Status: Chronic Assessment and plan: Not currently withdrawing from alcohol. Continue CIWA, provide MVI, thiamine. (9) Malnutrition: Status: Chronic Assessment and plan: Nutrition consulted. I am starting magic cups. (10) DVT prophylaxis: Status: Acute Assessment and plan: Defer to primary team. The hospitalists are signing off. Please, re-consult if needed. Subjective Subjective Interval history since last seen: Patient is s/p ORIF B distal femur fractures yesterday with EBL of 200 cc. Postoperatively, she required 1 unit of pRBCs. She states her pain is controlled now. Denies dizziness, chest pain, shortness of breath, nausea. She has not been working with IS as much as she should. Exam Narrative Exam Narrative: General: pleasant elderly female, A&Ox3, sitting up in bed, looks slightly uncomfortable HEENT: EOMI, MMM Heart: RRR, no m/r/g Lungs: Very diminished breath sounds B Abdomen: soft, nontender, nondistended Extremities: BLE incisions dressed - c/d/i; no edema Objective Last Vital Signs Temp 35.9 C L 03/29/20 11:04 Pulse 94 H 03/29/20 11:04 Resp 18 03/29/20 11:04 BP 161/75 H 03/29/20 11:04 Pulse Ox 98 03/29/20 11:04 Laboratory Results - last 24 hr 03/26/20 03/28/20 03/28/20 17:20 21:30 22:30 WBC RBC Hgb 7.6 L Hct MCV MCH MCHC RDW Plt Count MPV Sodium Potassium Chloride Carbon Dioxide Anion Gap BUN Creatinine Estimated GFR/1.73 m2 Glucose Calcium Magnesium SARS-CoV-2 Source Nasal/nares SARS-CoV-2 (PCR) Not detected Patient ABO/Rh A Negative Antibody Screen Negative Crossmatch See Detail 03/29/20 03/29/20 06:40 06:40 WBC 7.10 RBC 2.83 L Hgb 9.0 L Hct 26.5 L MCV 93.6 MCH 31.8 MCHC 34.0 RDW 13.9 Plt Count 178 MPV 9.5 Sodium 127 L Potassium 4.2 Chloride 94 L Carbon Dioxide 24.4 Anion Gap 8.6 BUN 9 D Creatinine 0.59 Estimated GFR/1.73 m2 >= 60.00 Glucose 93 Calcium 8.0 L Magnesium 1.2 L SARS-CoV-2 Source SARS-CoV-2 (PCR) Patient ABO/Rh Antibody Screen Crossmatch
--- NOTE | 2020-03-29 15:19 | CMPROGNOTE_ITS ---
- If Service Date Differs Date of service: 03/29/20 Time of Service: 15:19 Care Management Progress Note S/O:Johnny, is sitting up in the chair she is tired from the transfer to the chair. Johnny continues to want to return home with her family. CARLOS ENRIQUE has faxed additional notes to [facility] in support of a wheelchair she does have a FWW. CM did leave a message for her spouse Robert and attempted contact to her daughter Cristela neither were available. CM would like to discuss discharge planning with the family and will await a return call. A: Johnny is a 74 year old patient admitted with bilateral femur fractures anticipate repaired on 03/28/20 P:Johnny MONACO plans to return home with family supports, she will need new home health nursing, PT and OT. CM is coordinating a wheelchair through [facility], family is placing a ramp. Anticipate Johnny will be able to return home with supports. CM will continue to coordinate discharge needs.
--- NOTE | 2020-03-29 20:15 | W.PM.PROGNOT ---
Date of Service Date of service: 03/29/20 Time of Service: 16:16 Assessment and Plan Assessment and plan (1) Fracture of femoral condyle, right, closed: Status: Acute Qualifiers: Encounter type: initial encounter Fracture alignment: displaced Qualified Code(s): S72.411A - Displaced unspecified condyle fracture of lower end of right femur, initial encounter for closed fracture (2) Fracture of femoral condyle, left, closed: Status: Acute Assessment and plan: Uri is a 74-year-old who is postop day #1 status post bilateral distal femoral operative reduction and internal fixation. She is doing very well. She has had pain but it has been better than in past and has been able to mobilize to the chair. I am very happy with her progress thus far. I am quite impressed that she is done as much as she has. She seems motivated to go home. She may transfer with the legs but is not to try any attempted weightbearing or walking outside of transfers. She was able to have good success with PT today and I hope that this will continue. There will be significant needs at home to facilitate her ability return home. I have asked for an occupational therapy consult to address some of those needs and also discussed this with the care management team. She has a motivated family to help her return home and meet her needs. Continue Lovenox for DVT prophylaxis in the hospital. Qualifiers: Encounter type: initial encounter Fracture alignment: displaced Qualified Code(s): S72.412A - Displaced unspecified condyle fracture of lower end of left femur, initial encounter for closed fracture (3) Postoperative anemia due to acute blood loss: Status: Acute Assessment and plan: Hgb impoved with one unit last night. Check Hgb in the AM. Subjective Subjective Interval history since last seen: Uri is postop day #1 status post ORIF of bilateral femur fractures. In general, she reports to be doing well. She does have some pain but has been able to move in the bed. She has been able to work on transferring physical therapy with good success. She does report pain about both knees but it is better than it was from before surgery. No issues with the dressings. No chest pain or shortness of breath. Her postoperative hemoglobin had dropped to 7.7 therefore she was transfused 1 unit last night with appropriate improvement to 9.0. Exam Narrative Exam Narrative: Sitting up in the bed with both knees extended. Notable effusion is swelling about both knees. Dressings are clean dry and intact. She is able to actively flex and extend the ankle as well as extend and flex the great toes bilaterally. Sensation intact light touch over the deep and superficial peroneal nerve. Objective Last Vital Signs Temp 37.0 C 03/29/20 19:39 Pulse 102 H 03/29/20 19:39 Resp 17 03/29/20 19:39 BP 123/67 03/29/20 19:39 Pulse Ox 93 03/29/20 19:39 Laboratory Results - last 24 hr 03/28/20 03/28/20 03/29/20 21:30 22:30 06:40 WBC RBC Hgb 7.6 L Hct MCV MCH MCHC RDW Plt Count MPV Sodium 127 L Potassium 4.2 Chloride 94 L Carbon Dioxide 24.4 Anion Gap 8.6 BUN 9 D Creatinine 0.59 Estimated GFR/1.73 m2 >= 60.00 Glucose 93 Calcium 8.0 L Magnesium 1.2 L Patient ABO/Rh A Negative Antibody Screen Negative Crossmatch See Detail 03/29/20 06:40 WBC 7.10 RBC 2.83 L Hgb 9.0 L Hct 26.5 L MCV 93.6 MCH 31.8 MCHC 34.0 RDW 13.9 Plt Count 178 MPV 9.5 Sodium Potassium Chloride Carbon Dioxide Anion Gap BUN Creatinine Estimated GFR/1.73 m2 Glucose Calcium Magnesium Patient ABO/Rh Antibody Screen Crossmatch
[2020-03-29] MEDS: Magnesium Chloride 64 MG TABCR PO (20:57)
[2020-03-30] MEDS: Acetaminophen 325 MG TAB 650 MG PO ×4 (00:02→17:05)
[2020-03-30] MEDS: Lactated Ringers 1,000 ML 80 ML IV (03:14)
[2020-03-30 03:35] VITALS: BP 139/69; PULSE 106; RESP 17; TEMP 37; O2SAT 93
[2020-03-30] MEDS: Ketorolac 15 MG/ML VIAL IVP ×3 (03:50→19:55)
[2020-03-30] MEDS: Normal Saline Flush 10 ML SYR IVP ×3 (03:51→19:56)
[2020-03-30 04:34] LABS: Vitamin D 25 Total 17.1 ng/ml (30-100)
[2020-03-30] MEDS: Pantoprazole 40 MG TABCR PO (06:56)
--- NOTE | 2020-03-30 06:56 | DI.RAD_ITS ---
EXAM: XR KNEE LT 2V AP,LAT CLINICAL HISTORY: s/p ORIF L distal femur frx. TECHNIQUE: 2D digital imaging was performed. COMPARISON: CR XR KNEE RT 2V AP,LAT from 03/30/2020 FINDINGS: BONES: Sideplate and screws are seen transfixing the distal left femoral fracture. The fracture is a natomic in alignment. No new fracture or dislocation. JOINTS: The joint spaces are well maintained. Chondrocalcinosis in the femoral tibial joint is noted . SOFT TISSUE: Postsurgical changes are seen in the soft tissues. IMPRESSION: Stable postoperative changes. DATA REPOSITORY: RADIATION DOSE DELIVERED:
--- NOTE | 2020-03-30 06:56 | DI.RAD_ITS ---
EXAM: XR KNEE RT 2V AP,LAT CLINICAL HISTORY: s/p ORIF R distal femur frx. TECHNIQUE: 2D digital imaging was performed. COMPARISON: CR,XR XR KNEE RT 4V AP,LAT,ARIELA,PAT from 03/26/2020 XR FEMUR RT from 03/28/2020 FINDINGS: BONES: There are side plates and screws transfixing the distal right femoral fracture. There is arnulfo omic alignment.. No new fracture or dislocation. JOINTS: The joint spaces are well maintained. There is chondrocalcinosis. SOFT TISSUE: Postsurgical changes are seen in the soft tissues. Atherosclerosis is present. IMPRESSION: Stable postoperative changes. DATA REPOSITORY: RADIATION DOSE DELIVERED:
[2020-03-30 07:39] LABS: HCT 23.7 % (36.0-46.0); HGB 8.1 g/dL (11.2-15.7)
[2020-03-30 07:45] VITALS: BP 143/68; PULSE 101; RESP 15; TEMP 37.5; O2SAT 91
[2020-03-30 07:58] LABS: Anion Gap 4.2 mmol/L (3-11); BUN 9 mg/dL (7-18); CO2 26.8 mmol/L (21.0-32.0); CREATININE 0.45 mg/dL (0.55-1.02); Chloride 94 mmol/L (98-107); Glucose 96 mg/dL (74-106); Magnesium 1.6 mg/dL (1.8-2.4); Potassium 4.4 mmol/L (3.5-5.1); Sodium 125 mmol/L (136-145)
--- NOTE | 2020-03-30 08:24 | OT.INIE ---
Occupational Therapy Notes Inpatient Occupational Therapy Evaluation Date: 03/30/20 Referring Doctor:Amando Curry MD OT Orders: Urgent:s/p ortho surgery. Precautions: Fall, Standard, Full, s/p (B) femoral ORIF, transfers only. PATIENT PROFILE/ADMITTING DIAGNOSIS: Pt is a 74 year old female who was seen for OT consult s/p ortho surgery for (B) femoral ORIFs. She is admitted to [facility] with post op anemia, pumonary HTN, osteoporosis, malnutrition, abnormal EKG, tobacco use, ETOH abuse, essential HTN, lesion on nose, (B) fx to femoral condyles, hyponatremia. Past Medical History: Medical History Basal cell carcinoma of nose (07/12/15) Cataract Essential hypertension ETOH abuse Proximal humerus fracture (07/20/17) Tobacco use Surgical History History of basal cell carcinoma (BCC) excision History of esophagogastroduodenoscopy (EGD) History of tubal ligation Social History/Home Situation: Pt reports that she lives in a private home with her and she has a son and daughter that live nearby that can help her as needed. She notes that she is functionally (I) at baseline with her ADLs. She did not utilize an assistive device previously. She has a tub shower and the distance from her bed to bathroom is larger than what her functional mobility capabilities will allow. Equipment owned/DME: grab bars. SUBJECTIVE: Pt was lying in bed she is frustrated with how many people are coming into her room and states that she is agreeable to a quick consult and then would like to rest. OBJECTIVE: General Observation: Able to answer questions, notable pain behaviors, IV in (L) hand Mental Status: A&Ox4 Pain: c/o pain in (B) LE although this is only if she moves in specific motions. ROM: RUE AROM WFL L UE AROM WFL STRENGTH: RUE 4/5 throughout globally LUE 4/5 throughout globally FUNCTIONAL MOBILITY/ADLS: Pt denies the need to perform her ADLs at todays session. OT was able to assess her ROM required for her ADLs routine which she is limited with any LE dressing or bathing and functional mobility required for ADLs at this time. OT does feel that pt will require adaptive equipment please refer to recommendations below. BALANCE: Static sitting Good with support to back Dynamic Sitting Good with support to back SPECIAL TESTS: Daily Activity Limitations Standardized Measure [facility] AM -PAC ?6 clicks? Daily Activity Inpatient Short Form: Raw score: 11 Standardized score: 29.04 CMS score: 70.42% INFORMED CONSENT/EDUCATION: Pt instructed in purpose of OT Consult and plan of care. ASSESSMENT: Patient is a 74-year-old female referred to occupational therapy services with diagnosis of s/p ortho surgery for (B) femoral ORIFs. She is admitted to [facility] with post op anemia, pumonary HTN, osteoporosis, malnutrition, abnormal EKG, tobacco use, ETOH abuse, essential HTN, lesion on nose, (B) fx to femoral condyles, hyponatremia. Patient presents with clinical signs and symptoms consistent with dx, as demonstrated by the following impairment level findings: Impairments in ADL/IADL and leisure activities, decreased functional mobility required for ADL/IADL Routines, decreased ability to perform her ADLs at her baseline level of function, pain in (B) LE, decreased functional activity tolerance required for ADL performance. Impairments are contributing to the following functional limitations: Decreased ability to perform standing ADLs due to pain and restrictions, inability to perform functional mobility required for ADL performance, inability to perform LE dressing or bathing, inability to perform ADLs at her baseline level of function. AMPAC score 11, CMS score 70.42% Patient is assessed as a high [id number] complexity based on the following: History: see above Examination: see functional limitations as noted above Presentation: evolving Decision Making: AMPAC 11, CMS score 70.42% GOALS Goals x1 week 1. Grooming- sitting in bed with max (A) set up, pt will be (I) with oral hygiene 2. Dressing- sitting in bed, pt will be (I) with UE dressing 3. Bathing- sitting in bed with max (A) set up/clean up pt will be (I) with bathing routine 4. Toileting- on commode, min (A) toileting hygiene 5. Eating- (I) PLAN OF CARE/TREATMENT PLAN: 1x/day, 5 days/ week x 1week Initiate Occupational Therapy Services for bathing, dressing, grooming, toileting, eating, transfer training. DISCHARGE RECOMMENDATIONS Based on functional assessment of pts (I) in terms of her ADL/IADL routines, OT recommends that pt return home with HHOT for home safety assessment, further identifications of adaptive equipment needs, (A) and training in her home setting for ADLs/IADLs. OT recommends a shower bench with extension out to side of the tub to increase pts safety and functional (I) in her bathing routine. OT recommends commode with removable arms, for increased (I) with her toileting routine and safety at night. OT recommends a raised toilet set for toilet to decrease strain on (B) LE and improve safety with transfers with her toileting routine. TREATMENT TIME/MINUTES/CODES 25670, 10 minutes (07:40) Marisela Kay OTR/[facility]
[2020-03-30] MEDS: Nicotine 21 MG/24 HR PATCH TD (08:28)
[2020-03-30] MEDS: Magnesium Chloride 64 MG TABCR PO ×2 (08:29→19:55)
[2020-03-30] MEDS: Enoxaparin 40 MG/0.4 ML SYR SC (08:29)
[2020-03-30] MEDS: Calcium Carbonate 1.5 GM TAB PO ×2 (08:29→19:55)
[2020-03-30] MEDS: Cholecalciferol (Vitamin D3) 1,000 UNIT TAB 2000 UNITS PO (08:29)
[2020-03-30] MEDS: amLODIPine 5 MG TAB PO (08:30)
--- NOTE | 2020-03-30 10:40 | W.NUTRFU ---
Date of service: 03/30/20 Time of Service: 10:40 Nutritional Follow up NOTE: Diet advanced s/p surgery with good meal acceptance. Completing > 75% of meals and meeting nutrient and fluid needs at this time. Will continue to follow. Time Spent in Nutritional Counseling and Treatment: 5 min
[2020-03-30 11:23] VITALS: BP 139/80; PULSE 74; RESP 17; TEMP 37.1; O2SAT 95
--- NOTE | 2020-03-30 12:49 | PT.INTREAT ---
Date of service: 03/30/20 Time of Service: 11:35 PT Notes Visit Reasons: BILAT FEMORAL CONDYLE FRACS,HYPONATREMIA,NOSE LESI Inpatient Physical Therapy Treatment Note [facility] Date: 03/30/2020 PRECAUTIONS: Fall, NWB B LE, WBAT B LE with transfers only SUBJECTIVE: Racquel reports that she feels that her pain is better controlled today. She is agreeable to participating in PT. OBJECTIVE: PAIN: Patient c/o B LE pain (L>R) with weight bearing and transfers BED MOBILITY/TRANSFERS Supine-sit: Mod A + Min A with HOB at 50 degrees Sit-supine: Mod A with HOB flat Sit-stand: Min A + CGA in a.m.; CGA x2 in p.m. Stand-sit: Min A + CGA in a.m.; CGA x2 in p.m. Bed-Chair: Min A + CGA Chair-bed: Min A + CGA GAIT Assistive Device: FWW Weight bearing: WBAT B LE Assist: Min A + CGA Distance: 3 steps to R x2 in a.m.; 5 steps to R in p.m. Deviation: Increased B LE pain, assist with FWW mechanics, increased trunk flexion THEREX: Patient was instructed in several LE strengthening and stabilization exercises, in a long-sitting position, as per flow sheet. She was able to complete quad set exercises as well as heel slide exercises without assist. TOILETING: Patient toileted with assist. ASSESSMENT: Patient tolerated session with complaint of increased B LE pain with gait and transfers. She requires decreased assist for bed mobility and transfers compared to yesterday. She is demonstrating good progress with bed<>chair transfers with FWW support, as well as improved activity tolerance. PLAN: Continue with LE strengthening and bed mobility and transfer training. TREATMENT CODE/TIME: Session 1: 30 minutes; [id number], [id number] Session 2: 25 minutes; 79782, [id number]
--- NOTE | 2020-03-30 15:21 | W.PM.PROGNOT ---
Date of Service Date of service: 03/30/20 Time of Service: 07:24 Assessment and Plan Assessment and plan (1) Postoperative anemia due to acute blood loss: Status: Acute Assessment and plan: Hemoglobin drifted down again today to 8.1. However, she is asymptomatic except for some mild tachycardia however she is also hypertensive. At this point, I do not expect there to be anything for the blood loss and would continue to follow this conservatively and base any recheck of blood levels on her symptoms. (2) Fracture of femoral condyle, right, closed: Status: Acute Qualifiers: Encounter type: initial encounter Fracture alignment: displaced Qualified Code(s): S72.411A - Displaced unspecified condyle fracture of lower end of right femur, initial encounter for closed fracture (3) Fracture of femoral condyle, left, closed: Status: Acute Assessment and plan: Uri is a 74-year-old who is postop day #2 status post bilateral distal femoral operative reduction and internal fixation. She is doing very well. She did very well with physical therapy and will have occupational therapy today. She may transfer with the legs but is not to try any attempted weightbearing or walking outside of transfers. Continue to work with care management to make sure all assistive devices and needs her taking care for home. Given her progress, and thinking she could return to home in the next 1 to 2 days. Continue Lovenox for DVT prophylaxis in the hospital. Qualifiers: Encounter type: initial encounter Fracture alignment: displaced Qualified Code(s): S72.412A - Displaced unspecified condyle fracture of lower end of left femur, initial encounter for closed fracture Subjective Subjective Patient reports: no new complaints Interval history since last seen: Uri was able to mobilize yesterday well. She denies any acute changes. She is quite anxious about proceeding with going home but is quite adamant about not going to rehab facility. Vital signs been stable except for some mild tachycardia. However, she has no chest pain or shortness of breath or palpitations. Exam Narrative Exam Narrative: Sitting up in the bed. No acute distress. Alert and oriented x3. Bilateral knees are notably swollen with an effusion. Dressings are clean dry and intact. Objective Last Vital Signs Temp 37.1 C 03/30/20 11:23 Pulse 74 03/30/20 11:23 Resp 17 03/30/20 11:23 BP 139/80 03/30/20 11:23 Pulse Ox 95 03/30/20 11:23 Laboratory Results - last 24 hr 03/28/20 03/30/20 03/30/20 06:25 07:00 07:00 Hgb 8.1 L Hct 23.7 L Sodium 125 L Potassium 4.4 Chloride 94 L Carbon Dioxide 26.8 Anion Gap 4.2 BUN 9 Creatinine 0.45 L Estimated GFR/1.73 m2 >= 60.00 Glucose 96 Calcium 8.0 L Magnesium 1.6 L 25-OH Vitamin D Total 17.1 L
--- NOTE | 2020-03-30 15:26 | CHAPLAIN ---
Nelli was in bed when I visited. I introduced myself, explained my role and offered support. We had a pleasant conversation, after Nelli at first seemed hesitant to engage in a conversation.
[2020-03-30 15:30] VITALS: BP 135/68; PULSE 96; RESP 16; TEMP 36.9; O2SAT 95
--- NOTE | 2020-03-30 15:38 | CMPROGNOTE_ITS ---
- If Service Date Differs Date of service: 03/30/20 Time of Service: 15:38 Care Management Progress Note S/O: Johnny is making progress, per PT/OT she will need a shower bench, commode with drop down arms, wheelchair, and raised toilet seat. CARLOS ENRIQUE has contacted her daughter Jacquie and reviewed the discharge plan she is concerned about the size of the wheelchair, CM will reach out to [place] and verify the smallest size. Jacquie reports they do want to care for Johnny at home and is preparing the home f or her. Anticipate the home will be ready to return to on Friday or Friday depending on equipment and set up. CM will contact Jacquie in the morning to review equipment and plan. A: Johnny is a 74 year old patient admitted with bilateral femur fractures anticipate repaired on 03/28/20 P:Johnny MONACO plans to return home with family supports, she will need new home health nursing, PT and OT. CM is coordinating DME through [place], family is placing a ramp. Anticipate Johnny will be able to return home with supports. CM will continue to coordinate discharge needs. Transportation to be determined.
[2020-03-30] MEDS: oxyCODONE 5 MG TAB 10 MG PO (17:05)
[2020-03-30 18:45] VITALS: BP 114/71; PULSE 89; RESP 16; TEMP 36.7; O2SAT 95
[2020-03-30] MEDS: Docusate Sodium 100 MG CAP PO (19:55)
[2020-03-30] MEDS: Senna TAB 1 TAB PO (19:55)
[2020-03-30 22:23] VITALS: BP 132/77; PULSE 90; RESP 16; TEMP 36.8; O2SAT 97
[2020-03-31] VITALS (11 sets, daily range): BP systolic 115–146; BP diastolic 65–76; PULSE 91–107; RESP 16–19; TEMP 36–36.9; O2SAT 76–97
[2020-03-31] MEDS: Acetaminophen 325 MG TAB 650 MG PO ×5 (00:42→23:36)
[2020-03-31] MEDS: Ketorolac 15 MG/ML VIAL IVP ×3 (04:13→20:01)
[2020-03-31] MEDS: Normal Saline Flush 10 ML SYR IVP ×3 (04:14→20:01)
[2020-03-31] MEDS: Pantoprazole 40 MG TABCR PO (06:42)
[2020-03-31] MEDS: Enoxaparin 40 MG/0.4 ML SYR SC (08:26)
[2020-03-31] MEDS: Nicotine 21 MG/24 HR PATCH TD (08:26)
[2020-03-31] MEDS: amLODIPine 5 MG TAB PO (08:27)
[2020-03-31] MEDS: Cholecalciferol (Vitamin D3) 1,000 UNIT TAB 2000 UNITS PO (08:27)
[2020-03-31] MEDS: Senna TAB 1 TAB PO ×2 (08:27→20:01)
[2020-03-31] MEDS: Cyanocobalamin 500 MCG TAB 1000 MCG PO (08:27)
[2020-03-31] MEDS: Docusate Sodium 100 MG CAP PO ×2 (08:27→20:01)
[2020-03-31] MEDS: Calcium Carbonate 1.5 GM TAB PO ×2 (08:28→20:02)
[2020-03-31] MEDS: Thiamine 100 MG TAB PO (08:28)
[2020-03-31] MEDS: Magnesium Chloride 64 MG TABCR PO ×2 (08:28→20:01)
[2020-03-31] MEDS: Multivitamin TAB 1 TAB PO (08:28)
--- NOTE | 2020-03-31 09:10 | OT.INNT ---
Date of service: 03/31/20 Time of Service: 08:45 Occupational Therapy Notes 03/31/20 Pt refused OT services today. She reports that she is not interested in performing ADLs at this time. Marisela Kay, OTR/[facility]
[2020-03-31] MEDS: oxyCODONE 5 MG TAB 10 MG PO ×2 (13:56→18:39)
--- NOTE | 2020-03-31 14:47 | PT.INTREAT ---
Date of service: 03/31/20 Time of Service: 11:30 PT Notes Visit Reasons: BILAT FEMORAL CONDYLE FRACS,HYPONATREMIA,NOSE LESI Inpatient Physical Therapy Treatment Note [facility] Date: 03/31/2020 PRECAUTIONS: Fall, NWB B LE, WBAT B LE with transfers only SUBJECTIVE: Racquel is agreeable to participating in PT. OBJECTIVE: PAIN: Patient c/o B LE pain (L>R) with weight bearing, ther ex, and transfers BED MOBILITY/TRANSFERS Supine-sit: CGA with HOB at 40 degrees Sit-supine: CGA with HOB flat Sit-stand: CGA Stand-sit: CGA Bed-Chair: [facility] Chair-bed: [facility] GAIT Assistive Device: FWW Weight bearing: WBAT B LE Assist: [facility] Distance: 3 steps to R x2 in a.m.; 3 steps to R in p.m. Deviation: Increased B LE pain, increased trunk flexion THEREX: Patient was instructed in several LE strengthening and stabilization exercises, in a long-sitting position, as per flow sheet. She was able to complete quad set exercises as well as heel slide exercises without assist. TOILETING: Patient toileted with [facility] for transfers only. ASSESSMENT: Patient tolerated session with complaint of increased B LE pain with gait and transfers. She requires decreased assist for bed mobility and transfers compared to yesterday. She is demonstrating good progress with bed<>chair transfers with FWW support, as well as improved activity tolerance. PLAN: Continue with LE strengthening and bed mobility and transfer training. TREATMENT CODE/TIME: Session 1: 35 minutes; [id number], [id number] Session 2: 30 minutes; [id number], [id number]
--- NOTE | 2020-03-31 17:02 | CMPROGNOTE_ITS ---
- If Service Date Differs Date of service: 03/31/20 Time of Service: 17:02 Care Management Progress Note S/O:Johnny is doing well she will probably be discharged home early next week. Wheelchair has been approved CARLOS ENRIQUE spoke with Veronique at [facility] [phone] she needs to talk with the daughter Cristela to coordinate. CARLOS ENRIQUE left Cristela a voicemail with the number. Extended shower bench is 393.00 through [facility] and not covered by insurance, the raised toilet seat is a rental and 18.45 a month and the commode with drop down arms varies in [place] through [facility]. CARLOS ENRIQUE left a voicemail for Cristela [phone] with all the prices and who to contact at [facility]. Johnny will need new home health PT and OT and will complete a face to face. She will be allowed to transfer only and not bear weight anticipate healing time to be 3 months. A: Johnny is a 74 year old patient admitted with bilateral femur fractures anticipate repaired on 03/28/20 P:Johnny MONACO plans to return home with family supports, she will need new home health, PT and OT. CARLOS ENRIQUE is coordinating DME through [facility] [employer], family is placing a ramp. Anticipate Johnny will be able to return home with supports. CARLOS ENRIQUE will continue to coordinate discharge needs. Transportation to be determined pending her ability to transfer in the car vs ambulance based on mobility.
--- NOTE | 2020-03-31 19:37 | W.PM.PROGNOT ---
Date of Service Date of service: 03/31/20 Time of Service: 13:37 Assessment and Plan Assessment and plan (1) Postoperative anemia due to acute blood loss: Status: Acute Assessment and plan: Vitals have been stable. Recheck in AM (2) Essential hypertension: Status: Chronic Assessment and plan: Continue Amlodipine and follow (3) Fracture of femoral condyle, left, closed: Status: Acute Assessment and plan: s/p ORIF of bilateral distal femur ractures. Mobilizing well. Should be able to discharge home on Friday once all adaptive equipment and wheelchair and such have arrived. Continue Lovenox for DVT prophylaxis. D/C on Aspirin. Oxycodone more frequently. Continue Ketorolac. Check CBC and BMP in AM. Qualifiers: Encounter type: initial encounter Fracture alignment: displaced Qualified Code(s): S72.412A - Displaced unspecified condyle fracture of lower end of left femur, initial encounter for closed fracture (4) Fracture of femoral condyle, right, closed: Status: Acute Assessment and plan: See above Qualifiers: Encounter type: initial encounter Fracture alignment: displaced Qualified Code(s): S72.411A - Displaced unspecified condyle fracture of lower end of right femur, initial encounter for closed fracture (5) Hyponatremia: Status: Acute Assessment and plan: Ceck BMP in AM. Subjective Subjective Interval history since last seen: Uri denies any significant changes. She continues to have some pain but it is conrolled and usually after she has mobilized some. Snow catheter has been discontinued and she is voiding on her own using bedside commode and bedpan. No chest pain or SOB or palpitations. Exam Narrative Exam Narrative: Sitting up in bed. Appears slightly uncomfortable. Knees are on pillows. Dressings c/d/i. +ADF/APF/EHL/FHL bilaterally. Objective Last Vital Signs Temp 36.9 C 03/31/20 11:49 Pulse 107 H 03/31/20 11:49 Resp 19 03/31/20 11:49 BP 146/68 H 03/31/20 11:49 Pulse Ox 93 03/31/20 19:30
[2020-03-31] MEDS: oxyCODONE 5 MG TAB PO (23:40)
[2020-04-01] VITALS (14 sets, daily range): BP systolic 123–172; BP diastolic 48–79; PULSE 90–105; RESP 16–18; TEMP 36.9–37.7; O2SAT 82–97
[2020-04-01] MEDS: Ketorolac 15 MG/ML VIAL IVP ×3 (04:49→20:21)
[2020-04-01] MEDS: Normal Saline Flush 10 ML SYR IVP ×2 (04:50→20:22)
[2020-04-01] MEDS: Acetaminophen 325 MG TAB 650 MG PO ×3 (06:28→17:20)
[2020-04-01 07:43] LABS: Abs Immature Grans 0.02 10^3/uL (0.0-0.06); Absolute Basophil Count 0.03 10^3/uL (0.0-0.2); Absolute Eosinophil Count 0.27 10^3/uL (0.0-0.7); Absolute Lymphocyte Count 1.18 10^3/uL (1.2-3.4); Absolute Monocyte Count 1.12 10^3/uL (0.1-0.8); Absolute Neutrophil Count 4.08 10^3/uL (1.2-6.7); Basophils % 0.4; Immature Grans % 0.3; Lymphocytes % 17.6; MCH 32.1 pg (27.0-33.0); MCHC 33.7 % (32.0-36.0); MCV 95.4 fL (80-95); MPV 9.5 fL (8.0-11.0); Monocytes % 16.7; Nucleated RBC 0 %; Platelet Count 284 10^3/uL (130-400); RBC 2.18 10^6/uL (3.93-5.22); RDW 12.3 % (11.7-14.6); RDW-SD 42.8 fL
[2020-04-01 07:48] LABS: HCT 20.8 % (36.0-46.0)
[2020-04-01 07:52] LABS: Anion Gap 5.8 mmol/L (3-11); BUN 11 mg/dL (7-18); CO2 28.2 mmol/L (21.0-32.0); CREATININE 0.49 mg/dL (0.55-1.02); Calcium 8.4 mg/dL (8.5-10.1); Chloride 93 mmol/L (98-107); Glucose 91 mg/dL (74-106); Potassium 4.3 mmol/L (3.5-5.1); Sodium 127 mmol/L (136-145)
[2020-04-01 08:08] LABS: Diff Comment Diff Reviewed; Hypochromasia 2+
[2020-04-01 08:09] LABS: Poikilocytes 1+
[2020-04-01] MEDS: Magnesium Chloride 64 MG TABCR PO (09:11)
[2020-04-01] MEDS: Enoxaparin 40 MG/0.4 ML SYR SC (09:11)
[2020-04-01] MEDS: Nicotine 21 MG/24 HR PATCH TD (09:11)
[2020-04-01] MEDS: Cholecalciferol (Vitamin D3) 1,000 UNIT TAB 2000 UNITS PO (09:11)
[2020-04-01] MEDS: Multivitamin TAB 1 TAB PO (09:11)
[2020-04-01] MEDS: Docusate Sodium 100 MG CAP PO (09:11)
[2020-04-01] MEDS: amLODIPine 5 MG TAB PO (09:12)
[2020-04-01] MEDS: Cyanocobalamin 500 MCG TAB 1000 MCG PO (09:12)
[2020-04-01] MEDS: Calcium Carbonate 1.5 GM TAB PO (09:12)
[2020-04-01] MEDS: Senna TAB 1 TAB PO (09:12)
[2020-04-01] MEDS: Thiamine 100 MG TAB PO (09:12)
[2020-04-01] MEDS: oxyCODONE 5 MG TAB PO ×3 (10:47→20:21)
--- NOTE | 2020-04-01 11:38 | PDOC.CMPRO ---
Care Management Progress Note S/O: Johnny remains inpatient, CM continues to follow. A: Johnny is a 74 year old admitted with bilateral femur fractures anticipate repaired on 03/28/20 P: Gene will return home with family supports, and new orders for home health, PT and OT through [facility], she will remain non-weight bearing, transfer only. CM supported coordination of DME through [place], family is placing a ramp. Transportation to be determined per mobility. DME: Wheelchair approved through [facility]. Raised toilet seat: rental $18.45/mth Commode with drop down arms varies in [place]; options reviewed with family. Daughter: Cristela [phone] [facility]: [phone]
--- NOTE | 2020-04-01 11:57 | PTTR_ITS ---
Date of service: 04/01/20 Time of Service: 11:20 PT Notes Visit Reasons: BILAT FEMORAL CONDYLE FRACS,HYPONATREMIA,NOSE LESI Inpatient Physical Therapy Treatment Note [facility] Date: 04/01/2020 PRECAUTIONS: Fall, NWB B LE, WBAT B LE with transfers only SUBJECTIVE: Racquel is agreeable to participating in PT. OBJECTIVE: PAIN: Patient c/o B LE pain (L>R) with weight bearing, ther ex, and transfers BED MOBILITY/TRANSFERS Supine-sit: SBA with HOB at 30 degrees Sit-supine: SBA with HOB flat Sit-stand: SBA Stand-sit: SBA Bed-Chair: CGA Chair-bed: CGA GAIT Assistive Device: FWW Weight bearing: WBAT B LE Assist: CGA Distance: 3 steps x2 Deviation: Increased B LE pain, increased trunk flexion THEREX: Patient was instructed in several LE strengthening and stabilization exercises, in a long-sitting position, as per flow sheet. She was able to complete quad set exercises as well as heel slide exercises without assist. TOILETING: Patient toileted with SBA for transfers only. ASSESSMENT: Patient tolerated session with complaint of increased B LE pain w ith gait and transfers. She requires decreased assist for bed mobility and transfers compared to yesterday. She is demonstrating good progress with bed<>chair transfers with FWW support, as well as improved activity tolerance. PLAN: Continue with LE strengthening and bed mobility and transfer training. TREATMENT CODE/TIME: 25 minutes; [id number], [id number]
[2020-04-01] MEDS: Sucralfate 1 GM TAB PO ×2 (13:49→17:20)
[2020-04-01 16:20] LABS: HCT 26.8 % (36.0-46.0); HGB 9.2 g/dL (11.2-15.7)
--- NOTE | 2020-04-01 20:04 | W.PM.PROGNOT ---
Date of Service Date of service: 04/01/20 Time of Service: 15:05 Assessment and Plan Assessment and plan (1) Postoperative anemia due to acute blood loss: Status: Acute Assessment and plan: Received 1u PRBC this AM. Will recheck this afternoon and again in the morning. (2) Fracture of femoral condyle, left, closed: Status: Acute Assessment and plan: s/p ORIF of bilateral distal femur ractures. Mobilizing well but with slightly more pain today. Should be able to discharge home on Friday once all adaptive equipment and wheelchair and such have arrived. Continue Lovenox for DVT prophylaxis. D/C on Aspirin. Oxycodone more frequently. Continue Ketorolac. Check CBC and BMP in AM. Qualifiers: Encounter type: initial encounter Fracture alignment: displaced Qualified Code(s): S72.412A - Displaced unspecified condyle fracture of lower end of left femur, initial encounter for closed fracture (3) Fracture of femoral condyle, right, closed: Status: Acute Assessment and plan: See aboe Qualifiers: Encounter type: initial encounter Fracture alignment: displaced Qualified Code(s): S72.411A - Displaced unspecified condyle fracture of lower end of right femur, initial encounter for closed fracture Subjective Subjective Patient reports: no new complaints and still having pain Interval history since last seen: Received one unit of PRBC for a falling Hgb. Exam Narrative Exam Narrative: Sitting up in bed. Appears slightly uncomfortable. Knees are on pillows. Dressings c/d/i. +ADF/APF/EHL/FHL bilaterally. Objective Last Vital Signs Temp 37.1 C 04/01/20 15:31 Pulse 103 H 04/01/20 15:31 Resp 17 04/01/20 15:31 BP 159/75 H 04/01/20 15:31 Pulse Ox 95 04/01/20 15:31 Laboratory Results - last 24 hr 04/01/20 04/01/20 04/01/20 06:15 06:15 06:15 WBC 6.70 RBC 2.18 L Hgb 7.0 L Hct 20.8 L* MCV 95.4 H MCH 32.1 MCHC 33.7 RDW 12.3 Plt Count 284 D MPV 9.5 Immature Gran % 0.3 Neutrophils % 61.0 Lymphocytes % 17.6 Monocytes % 16.7 Eosinophils % 4.0 Basophils % 0.4 Nucleated RBC % 0 Absolute Neutrophils 4.08 Absolute Lymphocytes 1.18 L Absolute Monocytes 1.12 H Absolute Eosinophils 0.27 Absolute Basophils 0.03 RBC Morphology See below Hypochromasia 2+ Poikilocytosis 1+ Sodium 127 L Potassium 4.3 Chloride 93 L Carbon Dioxide 28.2 Anion Gap 5.8 BUN 11 Creatinine 0.49 L Estimated GFR/1.73 m2 >= 60.00 Glucose 91 Calcium 8.4 L Patient ABO/Rh A Negative Antibody Screen Negative Crossmatch See Detail 04/01/20 04/01/20 04/01/20 06:40 08:30 14:00 WBC RBC Hgb Cancelled Cancelled Hct Cancelled Cancelled MCV MCH MCHC RDW Plt Count MPV Immature Gran % Neutrophils % Lymphocytes % Monocytes % Eosinophils % Basophils % Nucleated RBC % Absolute Neutrophils Absolute Lymphocytes Absolute Monocytes Absolute Eosinophils Absolute Basophils RBC Morphology Hypochromasia Poikilocytosis Sodium Cancelled Potassium Cancelled Chloride Cancelled Carbon Dioxide Cancelled Anion Gap Cancelled BUN Cancelled Creatinine Cancelled Estimated GFR/1.73 m2 Cancelled Glucose Cancelled Calcium Cancelled Patient ABO/Rh Antibody Screen Crossmatch 04/01/20 04/01/20 15:00 15:55 WBC RBC Hgb Cancelled 9.2 L D Hct Cancelled 26.8 L D MCV MCH MCHC RDW Plt Count MPV Immature Gran % Neutrophils % Lymphocytes % Monocytes % Eosinophils % Basophils % Nucleated RBC % Absolute Neutrophils Absolute Lymphocytes Absolute Monocytes Absolute Eosinophils Absolute Basophils RBC Morphology Hypochromasia Poikilocytosis Sodium Potassium Chloride Carbon Dioxide Anion Gap BUN Creatinine Estimated GFR/1.73 m2 Glucose Calcium Patient ABO/Rh Antibody Screen Crossmatch
[2020-04-01] MEDS: Pantoprazole 40 MG TABCR PO (20:21)
[2020-04-02] VITALS (10 sets, daily range): BP systolic 133–157; BP diastolic 70–77; PULSE 90–104; RESP 17–22; TEMP 36.1–37.6; O2SAT 86–99
[2020-04-02] MEDS: oxyCODONE 5 MG TAB PO ×3 (01:51→20:14)
[2020-04-02] MEDS: Ketorolac 15 MG/ML VIAL IVP ×2 (04:13→12:32)
[2020-04-02] MEDS: Acetaminophen 325 MG TAB 650 MG PO ×3 (06:26→17:35)
[2020-04-02 07:39] LABS: HCT 25.5 % (36.0-46.0); MCH 32.6 pg (27.0-33.0); MCHC 35.3 % (32.0-36.0); MCV 92.4 fL (80-95); MPV 9.2 fL (8.0-11.0); Platelet Count 374 10^3/uL (130-400); RBC 2.76 10^6/uL (3.93-5.22); RDW 13.2 % (11.7-14.6); RDW-SD 44.5 fL; WBC 8.96 10^3/uL (4.4-10.8)
[2020-04-02] MEDS: Nicotine 21 MG/24 HR PATCH TD (08:10)
[2020-04-02] MEDS: Enoxaparin 40 MG/0.4 ML SYR SC (08:11)
[2020-04-02] MEDS: amLODIPine 5 MG TAB PO (08:12)
[2020-04-02] MEDS: Docusate Sodium 100 MG CAP PO ×2 (08:12→20:07)
[2020-04-02] MEDS: Pantoprazole 40 MG TABCR PO ×2 (08:12→20:07)
[2020-04-02] MEDS: Thiamine 100 MG TAB PO (08:12)
[2020-04-02] MEDS: Cholecalciferol (Vitamin D3) 1,000 UNIT TAB 2000 UNITS PO (08:13)
[2020-04-02] MEDS: Multivitamin TAB 1 TAB PO (08:13)
[2020-04-02] MEDS: Senna TAB 1 TAB PO ×2 (08:13→20:07)
[2020-04-02] MEDS: Cyanocobalamin 500 MCG TAB 1000 MCG PO (08:13)
[2020-04-02] MEDS: Magnesium Chloride 64 MG TABCR PO ×2 (08:13→20:06)
[2020-04-02] MEDS: Calcium Carbonate 1.5 GM TAB PO ×2 (08:13→20:06)
[2020-04-02] MEDS: Sucralfate 1 GM TAB PO ×4 (08:13→21:14)
--- NOTE | 2020-04-02 10:33 | PT.INTREAT ---
Date of service: 04/02/20 Time of Service: 10:15 PT Notes Visit Reasons: BILAT FEMORAL CONDYLE FRACS,HYPONATREMIA,NOSE LESI Inpatient Physical Therapy Treatment Note [facility] Date: 04/02/2020 PRECAUTIONS: Fall, NWB B LE, WBAT B LE with transfers only SUBJECTIVE: Racquel is agreeable to participating in PT. She reports that she is feeling better today. OBJECTIVE: PAIN: Patient c/o B LE pain (L>R) with weight bearing, ther ex, and transfers BED MOBILITY/TRANSFERS Supine-sit: S with HOB at 40 degrees Sit-supine: S with HOB flat Sit-stand: SBA Stand-sit: SBA Bed-Chair: SBA Chair-bed: SBA GAIT Assistive Device: FWW Weight bearing: WBAT B LE Assist: SBA Distance: 3 steps x2 Deviation: Increased B LE pain, increased trunk flexion THEREX: Patient was instructed in several LE strengthening and stabilization exercises, in a long-sitting position, as per flow sheet. She is able to complete all exercises with SBA. ASSESSMENT: Patient tolerated session with minimal complaint of B LE pain with bed<>chair transfers. She requires decreased assist for bed mobility and transfers compared to yesterday. She is demonstrating good progress with bed<>chair transfers with FWW support, as well as improved activity tolerance. PLAN: Continue with LE strengthening and bed mobility and transfer training. TREATMENT CODE/TIME: 35 minutes; [id number], [id number]
--- NOTE | 2020-04-02 10:48 | W.PM.PROGNOT ---
Date of Service Date of service: 04/02/20 Time of Service: 08:48 Assessment and Plan Assessment and plan (1) Fracture of femoral condyle, left, closed: Status: Acute Assessment and plan: s/p ORIF of bilateral distal femur ractures. Mobilizing well with primary contact guard. Should be able to discharge home tomrorow once all adaptive equipment and wheelchair and such have arrived. Continue Lovenox for DVT prophylaxis. D/C on Aspirin. Oxycodone more frequently. Switch Ketorolac tomorrow. Qualifiers: Encounter type: initial encounter Fracture alignment: displaced Qualified Code(s): S72.412A - Displaced unspecified condyle fracture of lower end of left femur, initial encounter for closed fracture (2) Fracture of femoral condyle, right, closed: Status: Acute Qualifiers: Encounter type: initial encounter Fracture alignment: displaced Qualified Code(s): S72.411A - Displaced unspecified condyle fracture of lower end of right femur, initial encounter for closed fracture (3) Hyponatremia: Status: Acute Assessment and plan: Stable. (4) Postoperative anemia due to acute blood loss: Status: Acute Assessment and plan: Improved and stable. Subjective Subjective Patient reports: no new complaints; denies shortness of breath and fever Exam Narrative Exam Narrative: Sitting up in bed. Knees fully extended. Dressings c/d/i. +ADF/APF/EHL/FHL bilaterally. Objective Laboratory Results - last 24 hr 04/02/20 06:18 WBC 8.96 D RBC 2.76 L Hgb 9.0 L Hct 25.5 L MCV 92.4 MCH 32.6 MCHC 35.3 RDW 13.2 Plt Count 374 MPV 9.2
--- NOTE | 2020-04-02 11:00 | CMPROGNOTE_ITS ---
Care Management Progress Note S/O: Johnny remains inpatient, and required a unit of blood yesterday due to postoperative anemia, per MD. PT notes that she is stronger this morning; requiring decreased assistance for mobility. CM reviewed with daughter, Cristela who shared the family will be providing combination building inspector support to Johnny in the home setting. Cristela also reported she will be retrieving Johnny's DME equipment in the morning; anticipate afternoon discharge. CM continues to follow. A: Johnny is a 74 year old admitted with bilateral femur fractures anticipate rep aired on 03/28/20 P: Johnny will return home with family supports, and new orders for home health, PT and OT through [facility], she will remain non-weight bearing, transfer only. CM supported coordination of DME through [employer], family is placing a ramp. Transportation to be provided via private vehicle with family. DME: Wheelchair approved through [facility]. Raised toilet seat: rental $18.45/mth Commode with drop down arms varies in [place]; options reviewed with family. Daughter: Cristela [phone] [facility]: [phone]
[2020-04-02] MEDS: Normal Saline Flush 10 ML SYR IVP (12:33)
[2020-04-03 02:01] VITALS: BP 143/92; PULSE 90; RESP 16; TEMP 35; O2SAT 95
[2020-04-03 03:30] VITALS: BP 160/74; PULSE 88; RESP 17; TEMP 37; O2SAT 97
[2020-04-03 04:17] VITALS: BP 130/60
[2020-04-03] MEDS: Acetaminophen 325 MG TAB 650 MG PO ×2 (06:19→11:19)
[2020-04-03 07:26] VITALS: BP 155/78; PULSE 103; RESP 17; TEMP 37.2; O2SAT 97
--- NOTE | 2020-04-03 08:11 | CMDISCH_ITS ---
- If Service Date Differs Date of service: 04/03/20 Time of Service: 08:11 LACE Index Scoring Tool - Questions: Length of Stay (in days): 4 - 6 Acuity (Admit via E.D.?): Yes Comorbidities: Chronic Pulmonary Disease E.D. Visits: 2 - Answers: Total Score: 11 Risk of Readmission: High Risk Care Management Discharge Reason for Hospitalization: Bilateral femur fracture Discharge Plan: Johnny will return home with family supports, and new orders for home health, PT and OT through [facility], she will remain non-weight bearing, transfer only. CM supported coordination of DME through [employer], family is placing a ramp. Transportation to be provided via private vehicle with family. CM contacted home health and provided discharge information. DME: Wheelchair approved through [employer]. Raised toilet seat: rental $18.45/mth. Commode with drop down arms varies in [place]; options reviewed with family. Patient/Family Education Needs: Discharge education, limitations and follow up plan of care. Services Needed at Discharge: DME Agency, Home Health Care Services, Occupational Therapy
[2020-04-03] MEDS: oxyCODONE 5 MG TAB PO ×2 (08:26→11:20)
--- NOTE | 2020-04-03 08:48 | NT_ITS ---
Date of service: 04/03/20 Time of Service: 08:48 Occupational Therapy Notes 04/03/20 OT attempted to see pt, she refuses OT services for today and notes that she just cannot participate in todays session. Marisela Kay, OTR/L [facility]
[2020-04-03] MEDS: Enoxaparin 40 MG/0.4 ML SYR SC (09:55)
[2020-04-03] MEDS: Nicotine 21 MG/24 HR PATCH TD (09:55)
[2020-04-03] MEDS: Magnesium Chloride 64 MG TABCR PO (09:56)
[2020-04-03] MEDS: Calcium Carbonate 1.5 GM TAB PO (09:56)
[2020-04-03] MEDS: Cholecalciferol (Vitamin D3) 1,000 UNIT TAB 2000 UNITS PO (09:56)
[2020-04-03] MEDS: Sucralfate 1 GM TAB PO (09:57)
[2020-04-03] MEDS: Cyanocobalamin 500 MCG TAB 1000 MCG PO (09:57)
[2020-04-03] MEDS: Meloxicam 15 MG TAB PO (09:57)
[2020-04-03] MEDS: amLODIPine 5 MG TAB PO (09:57)
[2020-04-03] MEDS: Normal Saline Flush 10 ML SYR IVP (09:58)
[2020-04-03] MEDS: Pantoprazole 40 MG TABCR PO (09:58)
--- NOTE | 2020-04-03 10:59 | W.NUTRFU ---
Date of service: 04/03/20 Time of Service: 11:00 Nutritional Follow up NOTE: Nelli continues with adequate intake to maintain current weight. Goal is for weight gain in view of low BMI however, Nelli very hesitant to add more calories to diet,states she is going home today. Working closely with CDM for meal adjustments for optimal intake. Continues to be high nutritional risk and at increased risk for skin breakdown. Will continue encourage increased po intake to support weight gain and normalized BMI. Time Spent in Nutritional Counseling and Treatment: 10 min spent face to face
[2020-04-03 11:05] VITALS: BP 117/71; PULSE 95; RESP 17; TEMP 37.4; O2SAT 88
[2020-04-03] MEDS: Albuterol HFA 8 GM 60 PUFF INH IH (11:08)
--- NOTE | 2020-04-03 13:16 | DSE_ITS ---
Date of service: 04/03/20 Time of Service: 13:07 DS: Diagnosis Discharge Diagnosis (1) Postoperative anemia due to acute blood loss: Status: Acute (2) Fracture of femoral condyle, right, closed: Status: Acute (3) Fracture of femoral condyle, left, closed: Status: Acute (4) Osteoporosis: Status: Chronic (5) Essential hypertension: Status: Chronic (6) Hyponatremia: Status: Acute Discharge Plan Disposition Patient Disposition: HOME Condition: Improving Discharge Details Reason For Visit: BILAT FEMORAL CONDYLE FRACS,HYPONATREMIA,NOSE LESI Admit Date/Time: 03/26/20 16:57 Admit Provider: Steven Phillips Attending Provider: Amando Curry Primary Care Provider: [facility] Course Hospital Course: Racquel was admitted from the Emergency Department for bilateral distal femur fractures. She was worked up by [facility] for preoperative clearance. During this time she remained stable on bedrest. She had hypertension which was treated. EKG, Echo, and Troponins were largely normal ecept for some signs of pulmonary hypertension. Uri underwent surgery on 03/28 for open reduction and internal fixation of both distal femur. She toelated the procedure well. She did have some acute post-operative blood loss anemia which responded to two units of packed red blood cells over two separate days. She was able to transfer starting post-operative day #1. She had much better pain control using oral agents. Her labs remained stable with slight hypomagnesium and a persistent, but unchanging hyponatremia. She was started on Amlodipine for hypertension and tolerated this well. Enoxaprain was continued as DVT prophylaxis. She was able to demonstrate ability to transfer with minimal assi stance and with accomodative devices. She was cleared for discharge to home with adaptive equipment after working with occupational therapy and physical therapy. Home Meds and New Rx's Prescriptions: New amlodipine 5 mg Tablet 5 mg PO DAILY Qty: 30 RF: 1 aspirin 81 mg tablet,delayed release (DR/EC) 81 mg PO BID Qty: 60 RF: 0 acetaminophen 500 mg tablet 1,000 mg PO Q8H PRN (Reason: pain) Qty: 90 RF: 3 pantoprazole 40 mg tablet,delayed release (DR/EC) 40 mg PO DAILY Qty: 30 RF: 0 oxycodone 5 mg tablet 5 mg PO Q6H PRN PRNQty: 18 RF: 0 meloxicam 15 mg tablet 15 mg PO DAILY Qty: 30 RF: 0 Continued calcium carbonate [Calcium 600] 600 mg calcium (1,500 mg) tablet 600 mg PO BID Qty: 90 RF: 0 cholecalciferol (vitamin D3) 2,000 unit tablet,chewable 2,000 unit PO DAILY Qty: 90 RF: 0 alendronate 70 mg tablet 70 mg PO QWEEK Qty: 12 RF: 4 lisinopril 10 mg tablet 10 mg PO DAILY Qty: 90 RF: 4 lutein 6 mg Capsule PO DAILY RF: 0 Discontinued acetaminophen [Mapap Extra Strength] 500 mg tablet 500 mg PO TID PRNRF: 0 Discharge Instructions Additional Instructions: Dr. Curry?s Discharge Instructions Activity: You may move the hips and knees as tolerated. You should limit any weight bearing on your legs. You may use your legs to help assist with transfers but should avoid any unneccessary weight-bearing until instructed further. Dressing: Keep the surgical dressing (Mepilex) in place for at least one more week. The dressing may get wet but avoid soaking the dressing. If it gets wet, just lightly pat dry. Most patient prefer to cover with ClingWrap or Saran Wrap to keep the dressing dry. After one more week, the dressing may be removed and replaced with nothing. Wear the DARBY hose on both legs to help limit swelling and blood pooling. Medications: - You should take Tylenol and anti-inflammatory Meloxicam as your primary pain control medications - You have been prescribed a stronger pain medication Oxycodone for breakthrough pain, take as needed as prescribed. - You have also been prescribed a stomach acid reduction agent Pantoprozole to help reduce stomach acid and reflux. - You will be taking Aspirin 81mg twice a day for DVT prevention unless instructed otherwise. - If you have constipation you should take Colace or Miralax (both [id number]). It takes most people 3-4 days to have a bowel movement. Follow-up: 4 weeks. If you have any acute concerns or questions, please do not hesitate to contact the office at [phone]. You may contact Dr. Curry with any questions after hours through the hospital at [phone] or on his cell phone at [phone]. 1. Encounter Date and Reason I certify that MELVA ARNOLD was seen by Amando Curry MD on 04/03/20 and that I had a [id number] encounter with this patient that meets the physician face to face encounter requirements. 2. Clinical Findings Supporting Skilled Need and Homebound Status I certify that home health services are medically necessary, include either intermittent detention and/or physical/speech therapy, and that this patient is homebound in that absences from the home require considerable and taxing effort and are infrequent or of short duration, or are attributable to the need to receive medical care. [X] (a) Attached documentation from encounter provides clinical findings supporting skilled need and homebound status (including what assistance patient requires to leave the home). The encounter with the patient was in whole, or in part, for the following medical condition, which is the primary reason for home health care: BILAT FEMORAL CONDYLE FRACS,HYPONATREMIA,NOSE LESI Custodial: Physical Therapy: Racquel is s/p bilateral distal femur fracture fixation. She has significant weakness and mobility deficits. She is unable to bear weight on the legs for any prolonged standing or ambulation. HOWEVER, she may use the legs to assist with transfer. She may work on range of motion of the knees as tolerated but initial therapy focus should be on strengthening her legs as well as improving her comfort and abilities to transfer throughoutt her home. Speech Therapy: Homebound: Racquel is homebound. She is unable to leave her home unassisted. 3. Certification and Authentication I certify that I composed the above information based on my clinical judgement relating to this patient's medical condition and, if applicable, clinical findings communicated to me by the NPP or inpatient physician who performed the Home Health Referral. All further orders will be obtained through Dr. Curry Referrals: Amando Curry MD [ [facility]] - Activity:: Transfer only Equipment/Supplies:: Walker, Wheelchair Diet:: As Tolerated Discharge Orders Discharge Orders: Discharge Order (Routine); Ordered 04/03/20 Ordered By: Amando Curry DS: Summary Status at Discharge Functional status at discharge: wheelchair bound Overall status at discharge: patient is not back to baseline Mental Status: mental status grossly normal Speech and Movement: speech and movement normal Mood: congruent mood Affect: normal affect Exam Psych Mental Status: mental status grossly normal Speech and Movement: speech and movement normal Mood: congruent mood Affect: normal affect DS: Data Vitals/I&O Vitals and I&O: Vital Signs Temperature 36.7 C 03/30/20 18:45 Temperature Source Temporal Artery Scan 03/30/20 18:45 Pulse 89 03/30/20 18:45 Pulse Rhythm Regular 03/30/20 16:54 Pulse 78 03/27/20 15:01 Respiratory Rate 16 03/30/20 18:45 Respiratory Effort Non-Labored 03/30/20 16:54 Respiratory Depth Normal 03/30/20 16:54 Respiratory Pattern Normal 03/30/20 16:54 Blood Pressure 114/71 03/30/20 18:45 Blood Pressure Mean 79 03/27/20 15:00 Blood Pressure Position Left Lateral 03/26/20 20:15 Pulse Oximetry 95 03/30/20 18:45 Respiratory End-tidal CO2 36 03/28/20 16:35 Oxygen Delivery Method Nasal Cannula 03/30/20 18:45 Oxygen Flow Rate 1.5 03/30/20 18:45 Pain Level 0 03/30/20 18:45 Comment 03/29/20 11:04 Intake & Output 03/29/20 03/30/20 03/30/20 23:59 11:59 23:59 Intake Total 680 / 2440 1445.333 / 1685.333 240 / 1685.333 Output Total 600 / 1300 525 / 825 300 / 825 Balance 80 / 1140 920.333 / 860.333 -60 / 860.333 Weight 37.8 kg Intake: IV 1405.333 / 1405.333 Oral 680 / 1040 40 / 280 240 / 280 Output: Urine 600 / 1300 525 / 825 300 / 825 Other: Urine Color Light Sravani Yellow Yellow Urine Appearance Clear Clear Clear Stool Size Small Moderate Stool Characteristics Soft Soft Brown Formed Voiding Methods Bedside Commode Data Completed and Pending Labs on day of discharge: Labs from last 24 hours 03/30/20 03/30/20 03/28/20 07:00 07:00 06:25 Hgb 8.1 L Hct 23.7 L Sodium 125 L Potassium 4.4 Chloride 94 L Carbon Dioxide 26.8 Anion Gap 4.2 BUN 9 Creatinine 0.45 L Estimated GFR/1.73 m2 >= 60.00 Glucose 96 Calcium 8.0 L Magnesium 1.6 L 25-OH Vitamin D Total 17.1 L PFSH Medical History Alcoholic gastritis with bleeding Basal cell carcinoma of nose (07/12/15) Calculus, kidney Cataract Essential hypertension ETOH abuse Malnutrition Proximal humerus fracture (07/20/17) Tobacco use Surgical History History of basal cell carcinoma (BCC) excision History of esophagogastroduodenoscopy (EGD) History of tubal ligation Family History Grandfather Myocardial infarction Mother Alcohol abuse Paternal Grandfather Heart disease Social History Smoking/Tobacco Use Status: Current every day Tobacco Type: cigarettes Smoking packs per day: 0.5 Smoking cigarettes per day: 10.0 Years smoked: 50 Smoking pack-years: 25.00 Tobacco: How many years used: 50 Counseling given: provider counseling Smoking risk assessment performed?: Yes Alcohol Intake: current Alcohol Intake frequency: 0-2 drinks per day Alcohol type: wine Counseling provided: provider counseling Drug use: Never Substance use type: does not use Household members: spouse and other Housing: house Number of Children: 4 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
--- NOTE | 2020-04-04 06:58 | OT.INDS ---
Date of service: 04/04/20 Time of Service: 06:58 Occupational Therapy Notes Occupational Therapy Inpatient Discharge Summary *This document serves as a summary of care, no skilled OT services were provided for this documentation* Date: 04/04/20 Dates of Service: 03/30/20-04/03/20 Referring Doctor:Amando Curry MD OT Orders: Urgent:s/p ortho surgery. Precautions: Fall, Standard, Full, s/p (B) femoral ORIF, transfers only. PATIENT PROFILE/ADMITTING DIAGNOSIS: Pt is a 74 year old female who was seen for OT consult s/p ortho surgery for (B) femoral ORIFs. She is admitted to [facility] with post op anemia, pumonary HTN, osteoporosis, malnutrition, abnormal EKG, tobacco use, ETOH abuse, essential HTN, lesion on nose, (B) fx to femoral condyles, hyponatremia. Past Medical History: Medical History Basal cell carcinoma of nose (07/12/15) Cataract Essential hypertension ETOH abuse Proximal humerus fracture (07/20/17) Tobacco use Surgical History History of basal cell carcinoma (BCC) excision History of esophagogastroduodenoscopy (EGD) History of tubal ligation Social History/Home Situation: Pt reports that she lives in a private home with her and she has a son and daughter that live nearby that can help her as needed. She notes that she is functionally (I) at baseline with her ADLs. She did not utilize an assistive device previously. She has a tub shower and the distance from her bed to bathroom is larger than what her functional mobility capabilities will allow. Equipment owned/DME: grab [employer]. SUBJECTIVE: NT OBJECTIVE: ROM: RUE AROM WFL L UE AROM WFL STRENGTH: RUE 4/5 throughout globally LUE 4/5 throughout globally FUNCTIONAL MOBILITY/ADLS: Pt denies the need to perform her ADLs at all sessions with multiple refuses. OT was able to assess her ROM required for her ADLs routine at her initial evaluation which she is limited with any LE dressing or bathing and functional mobility required for ADLs at this time. OT does feel that pt will require adaptive equipment please refer to recommendations below. BALANCE: Static sitting Good with support to back Dynamic Sitting Good with support to back ASSESSMENT: Patient is a 74-year-old female referred to occupational therapy services with diagnosis of s/p ortho surgery for (B) femoral ORIFs. She is admitted to [facility] with post op anemia, pumonary HTN, osteoporosis, malnutrition, abnormal EKG, tobacco use, ETOH abuse, essential HTN, lesion on nose, (B) fx to femoral condyles, hyponatremia. Pt was agreeable to OT services at consult although continued to refuse services while she was here. She was discharged home on 04/03/20 with HH services. GOALS- not met due to pts multiple refuses, OT was unable to assess. 1. Grooming- sitting in bed with max (A) set up, pt will be (I) with oral hygiene 2. Dressing- sitting in bed, pt will be (I) with UE dressing 3. Bathing- sitting in bed with max (A) set up/clean up pt will be (I) with bathing routine 4. Toileting- on commode, min (A) toileting hygiene 5. Eating- (I) PLAN OF CARE/TREATMENT PLAN: Discharge pt from skilled OT services. DISCHARGE RECOMMENDATIONS Based on functional assessment of pts (I) in terms of her ADL/IADL routines, OT recommends that pt return home with HHOT for home safety assessment, further identifications of adaptive equipment needs, (A) and training in her home setting for ADLs/IADLs. OT recommends a shower bench with extension out to side of the tub to increase pts safety and functional (I) in her bathing routine. OT recommends commode with removable arms, for increased (I) with her toileting routine and safety at night. OT recommends a raised toilet set for toilet to decrease strain on (B) LE and improve safety with transfers with her toileting routine. TREATMENT TIME/MINUTES/CODES N/A Marisela Kay, OTR/L [facility]
--- NOTE | 2020-04-06 13:00 | PT.INDS ---
Date of service: 04/03/20 Time of Service: 11:30 PT Notes Visit Reasons: BILAT FEMORAL CONDYLE FRACS,HYPONATREMIA,NOSE LESI Physical Therapy Inpatient Discharge Summary Date: 04/06/2020 Dates of Service: 03/29/2020 through 04/03/2020 Referring Doctor: Amando Curry MD PT Orders: PT CONSULT: Status post Ortho surgery. Status post bilateral distal femoral ORIF. Transfer only. NWB otherwise. Precautions: Fall. Standard. WBAT on B LE for transfers only. Patient Profile/Admitting Diagnosis: Nelli is a 74-year-old female who presented to the ED on 03/26/2020 due to bilateral knee pain and tenderness sustained from a mechanical fall. Patient is diagnosed with bilateral distal femoral fracture status post open reduction internal fixation with intercondylar split on postoperative day 9. PMHX: Medical History Basal cell carcinoma of nose (07/12/15) Cataract Essential hypertension ETOH abuse Proximal humerus fracture (07/20/17) Tobacco use Surgical History History of basal cell carcinoma (BCC) excision History of esophagogastroduodenoscopy (EGD) History of tubal ligation Social History/Home Situation: Lives with and children and grandchildren in a private home with 4 steps to enter. She states that her family is having a ramp built for her ready for when she goes home. She was independent with all ADLs without an assistive device nor adaptive equipment. No falls in the past 12 months. Equipment Owned/DME: None Subjective: Looks forward to going home today. Continues to report discomfort in bilateral legs but of less intensity. Objective: General Observation: Supine in bed. IV in left UE. Mepilex Ag over surgical incisions in bilateral thighs and knees. Mild redness and swelling to L distal thigh and proximal leg. Snow catheter in place. Telemetry monitoring in place. Mental Status: Alert and oriented x4 Pain: 3?4/10 pain in bilateral lower extremities with weightbearing ROM: Right Upper Extremity: Shoulder Flexion WFL. Shoulder abduction WFL. Elbow flexion WFL. Wrist flexion WFL. Opening and closing of hand WFL. Left Upper Extremity: Shoulder Flexion WFL. Shoulder abduction WFL. Elbow flexion WFL. Wrist flexion WFL. Opening and closing of hand WFL. Right Lower Extremity: Hip flexion allows up to 20 degrees in supine with significant pain, able to sit with hips and knees to about 80 degrees of bed. Hip abduction allows up to 5 degrees in supine with significant pain. Knee flexion allows up to 20 degrees in supine with significant pain. Ankle dorsiflexion WFL. Ankle plantarflexion WFL. Left Lower Extremity: Hip flexion allows up to 10 degrees in supine with significant pain, able to sit with hips and knees to about 80 degrees of bed. Hip abduction allows up to 5 degrees in supine with significant pain. Knee flexion allows up to 10 degrees in supine with significant pain. Ankle dorsiflexion WFL. Ankle plantarflexion WFL. Strength: Right Upper Extremity: Shoulder flexors 4-/5. Shoulder abductors 4-/5. Elbow flexors 4-/5. Elbow extensors 4-/5. Carpenter Assistant Installer strong. Left Upper Extremity: Shoulder flexors 4-/5. Shoulder abductors 4-/5. Elbow flexors 4-/5. Elbow extensors 4-/5. Carpenter Assistant Installer strong. Right Lower Extremity: Hip flexors 2-/5. Hip abductors 2--/5. Knee flexors 3-/5. Knee extensors 3-/5. Ankle dorsiflexors 3-/5. Ankle plantarflexors 3-/5. Left Lower Extremity: Hip flexors 2-/5. Hip abductors 2--/5. Knee flexors 3-/5. Knee extensors 3-/5. Ankle dorsiflexors 3-/5. Ankle plantarflexors 3-/5. Sensation: Intact as to pain and pressure on bilateral lower extremities. Bed Mobility/Transfers: Supine to sit standby assist Sit to stand standby assist Stand to sit standby assist Bed to chair standby assist Gait: Stand pivot transfer only from edge of bed to chair with standby assist. Minimal pain reported during weight-bearing but did not require extensive help form PT and FLYING SQUAD SALESPERSON. Balance: Static Sitting: Normal Dynamic Sitting: Good Static Standing: Fair Dynamic Standing: Fair Assessment: Nelli demonstrates improvement in functional mobility level as seen in mobility status above and discharge status below. Unable to perform ambulation activity per orthopedic surgeon's order. She will have the support of her spouse and family members for all other ADL tasks. Patient continues to present with clinical signs and symptoms consistent with current/admitting diagnoses that have resulted to mobility limitations, gait instability, generalized weakness, and impairment of motor control as demonstrated by the following impairment level findings: 1. Decreased strength to BUE/LE major muscle groups 2. Impaired sitting/standing balance 3. Impaired activity tolerance 4. Limitation of joint range of motion in B LE 5. NWB on B LE per orthopedic surgeon except for transfers Impairments are continuing to contribute to the following functional limitations: 1. Increased dependence with transfers 2. Inability to ambulate per orthopedic surgeon's order 3. Increase completion time for mobility ADL performance 4. Increased fall risk Goals: Goals X1 week 1. Supine-Sit standby assist MET 2. Sit-Supine standby assist MET 3. Sit-Stand minimal assist MET 4. Stand-Sit minimal assist MET 5. Bed-Chair minimal assist using stand pivot transfer/slide board transfer MET 6. Chair-Bed minimal assist using stand pivot transfer//slide board transfer MET 7. Independent wheelchair self propulsion/management for 100 feet using correct technique NOT MET DISCHARGE RECOMMENDATIONS: Nelli will highly benefit from the use of wheelchair for all indoor mobility in order to fall risk and comply with orthopedic surgeons weight bearing precautions. Patient will benefit from home health PT services in order to progress mobility level using least restrictive assistive ambulatory device, assess home safety, identify additional equipment needs, and establish a functional maintenance program that will increase ability of patient to remain at home. TREATMENT CODE/TIME: 71401 x 10 minutes, 11853 x 19 minutes beginning at 11:30 AM. Thank you for the opportunity to participate in the care of this patient. Teresa Silverman PT, DPT, CLT [facility] [place], [place]
== END 2020-04-03 14:45 | disposition home or self-care (01) | DRG 480 ==
LOC: ER 17:15 → ICU 18:49 → MS 03-27 18:20
PROVIDERS: Internal Medicine; Admitting Provider Orthopaedic Surgery; Emergency Provider Student in an Organized Health Care Education/Training Program; PCP Family Medicine; Visit Provider Student in an Organized Health Care Education/Training Program
PROC: 0QSC04Z Reposition Left Lower Femur with Internal Fixation Device, Open Approach (ICD-10-PCS; CPT 27514; principal; 2020-03-28 15:30)
DX: S72.492A Other fracture of lower end of left femur, initial encounter for closed fracture (principal); E43 Unspecified severe protein-calorie malnutrition; S72.491A Other fracture of lower end of right femur, initial encounter for closed fracture; Z68.1 Body mass index [BMI] 19.9 or less, adult; E87.1 Hypo-osmolality and hyponatremia; D62 Acute posthemorrhagic anemia; F17.210 Nicotine dependence, cigarettes, uncomplicated; M81.0 Age-related osteoporosis without current pathological fracture; I10 Essential (primary) hypertension; F10.10 Alcohol abuse, uncomplicated; I25.2 Old myocardial infarction; R94.31 Abnormal electrocardiogram [ECG] [EKG]; I27.20 Pulmonary hypertension, unspecified; W10.9XXA Fall (on) (from) unspecified stairs and steps, initial encounter
CPT/HCPCS: 27514 ×2; 36415; 36430; 51702; 73552; 76000; 76376; 80048; 82306; 82550; 85027; 86850; 86900; 86901; 86920; 90662; 93306; 96374; 96375; 96376; 97110; 97167; 97530; 99222; 99232; 99253; 99254; 99285; J1650; NC; U0003; 71045; 73560; 73564; 73700; 81003; 81015; 82607; 82746; 83735; 83880; 84443; 84484; 85014; 85018; 85025; 85610; 85730; 93005; 93010; J0131; J0690; J1644; J1885; J2001; J2250; J2270; J3010; J3475; P9016

== ENCOUNTER 2020-04-17 11:18 | Outpatient (CLI) | payer MEDICARE, SELFPAY ==
--- NOTE | 2020-04-17 10:00 | DI.RAD_ITS ---
EXAM: XR KNEE LT 2V AP,LAT CLINICAL HISTORY: s/p ORIF left femur. TECHNIQUE: 2D digital imaging was performed. COMPARISON: CR,XR XR KNEE LT 4V AP,LAT,ARIELA,PAT from 03/26/[address] CT 3D RECON ON CT WORKSTATION from 03/26/2020 CR,XR XR KNEE RT 4V AP,LAT,ARIELA,PAT from 03/26/2020 CR XR KNEE LT 2V AP,LAT from 03/30/2020 CR XR KNEE RT 2V AP,LAT from 04/17/2020 FINDINGS: The fixation plate is again noted along the lateral aspect of the distal femur for fracture fixation. There has been no change in hardware or fracture alignment. Degenerative changes and chondrocalcin osis are again noted in the knee. A suprapatellar effusion is seen. DATA REPOSITORY: RADIATION DOSE DELIVERED:
--- NOTE | 2020-04-17 10:00 | DI.RAD_ITS ---
EXAM: XR KNEE RT 2V AP,LAT INDICATION: s/p ORIF rt femur. COMPARISON: CR XR KNEE LT 2V AP,LAT from 03/30/2020 CR XR KNEE RT 2V AP,LAT from 03/30/2020 TECHNIQUE: 2D digital imaging was performed. FINDINGS: Screw and plate fixation is again noted along lateral aspect of the distal femur for fracture fixatio n. There has been no change in fracture or hardware alignment. The amount of soft tissue swelling h as decreased. Degenerative changes and chondrocalcinosis are again noted of right knee. DATA REPOSITORY: RADIATION DOSE DELIVERED:
== END 2020-04-17 11:38 ==
PROVIDERS: PCP Family Medicine; Referring Provider Family Medicine; Visit Provider Physician Assistant
DX: M11.261 Other chondrocalcinosis, right knee (principal); M17.0 Bilateral primary osteoarthritis of knee; S72.492A Other fracture of lower end of left femur, initial encounter for closed fracture; M25.462 Effusion, left knee; M11.262 Other chondrocalcinosis, left knee
CPT/HCPCS: 73560

== ENCOUNTER 2020-05-15 15:48 | Outpatient (CLI) | payer MEDICARE, SELFPAY ==
--- NOTE | 2020-05-15 13:45 | DI.RAD_ITS ---
EXAM: XR FEMUR LT CLINICAL HISTORY: follow up. TECHNIQUE: 2D digital imaging was performed. COMPARISON: CR,XR XR KNEE LT 4V AP,LAT,ARIELA,PAT from 03/26/2020 CR XR KNEE LT 2V AP,LAT from 04/17/2020 FINDINGS: BONES: There are stable post operative changes present. There has been no change in alignment of the distal left femoral fracture. No new fracture or dislocation. JOINTS: The joint spaces are well maintained. No joint effusion is present. SOFT TISSUE: Normal. IMPRESSION: Stable postoperative changes. DATA REPOSITORY: RADIATION DOSE DELIVERED:
--- NOTE | 2020-05-15 13:45 | DI.RAD_ITS ---
EXAM: XR FEMUR RT CLINICAL HISTORY: follow up. TECHNIQUE: 2D digital imaging was performed. COMPARISON: CR,XR XR KNEE RT 4V AP,LAT,ARIELA,PAT from 03/26/2020 CR XR KNEE RT 2V AP,LAT from 04/17/2020 CR XR KNEE RT 2V AP,LAT from 04/17/2020 FINDINGS: BONES: There are stable post operative changes present. There has been no change in alignment of the distal femoral fracture. No new fracture or dislocation. JOINTS: The joint spaces are well maintained. No joint effusion is present. SOFT TISSUE: Normal. IMPRESSION: Stable postoperative changes. DATA REPOSITORY: RADIATION DOSE DELIVERED:
== END 2020-05-15 16:08 ==
PROVIDERS: PCP Family Medicine; Referring Provider Family Medicine; Visit Provider Student in an Organized Health Care Education/Training Program
DX: S72.492A Other fracture of lower end of left femur, initial encounter for closed fracture (principal); S72.491A Other fracture of lower end of right femur, initial encounter for closed fracture; S72.412D Displaced unspecified condyle fracture of lower end of left femur, subsequent encounter for closed fracture with routine healing; S72.411D Displaced unspecified condyle fracture of lower end of right femur, subsequent encounter for closed fracture with routine healing; X58.XXXD Exposure to other specified factors, subsequent encounter
CPT/HCPCS: 73552

== ENCOUNTER 2020-06-26 13:32 | Outpatient (CLI) | payer MEDICARE, SELFPAY ==
--- NOTE | 2020-06-26 13:15 | DI.RAD_ITS ---
EXAM: XR KNEE LT 2V AP,LAT CLINICAL HISTORY: f/u. TECHNIQUE: 2D digital imaging was performed. COMPARISON: CR XR FEMUR LT from 05/15/2020 FINDINGS: BONES: There are stable post operative changes present. No new fracture or dislocation. JOINTS: The joint spaces are well maintained. Small joint effusion is present. SOFT TISSUE: Atherosclerosis. IMPRESSION: Stable postoperative changes. DATA REPOSITORY: RADIATION DOSE DELIVERED:
--- NOTE | 2020-06-26 13:15 | DI.RAD_ITS ---
EXAM: XR KNEE RT 2V AP,LAT CLINICAL HISTORY: f/u. TECHNIQUE: 2D digital imaging was performed. COMPARISON: CR XR KNEE LT 2V AP,LAT from 04/17/2020 CR XR KNEE RT 2V AP,LAT from 04/17/2020 CR XR FEMUR RT from 05/15/2020 FINDINGS: BONES: There are stable post operative changes present. No new fracture or dislocation. JOINTS: The joint spaces are well maintained. No joint effusion is present. SOFT TISSUE: Atherosclerosis. IMPRESSION: Stable femoral fracture. No acute abnormality. DATA REPOSITORY: RADIATION DOSE DELIVERED:
== END 2020-06-26 13:52 ==
PROVIDERS: PCP Family Medicine; Referring Provider Family Medicine; Visit Provider Student in an Organized Health Care Education/Training Program
DX: S72.412D Displaced unspecified condyle fracture of lower end of left femur, subsequent encounter for closed fracture with routine healing; S72.411D Displaced unspecified condyle fracture of lower end of right femur, subsequent encounter for closed fracture with routine healing; X58.XXXD Exposure to other specified factors, subsequent encounter
CPT/HCPCS: 73560

== ENCOUNTER 2020-08-21 13:57 | Outpatient (CLI) | payer MEDICARE, SELFPAY ==
--- NOTE | 2020-08-21 13:00 | DI.RAD_ITS ---
EXAM: XR KNEE LT 2V AP,LAT CLINICAL HISTORY: f/u. TECHNIQUE: 2D digital imaging was performed. COMPARISON: CR XR KNEE RT 2V AP,LAT from 08/21/2020 FINDINGS: Again noted is the lateral fixation plate across the distal femur ending at the level of the femoral condyles where there supporting screws as well as an independent screw across the fracture through th e intercondylar notch. That fracture line is still visible as it violates the knee joint surface but no further displacement. There is no radiographic evidence of loosening nor osteomyelitis. There i s no obvious tibial plateau fracture. IMPRESSION: DATA REPOSITORY: RADIATION DOSE DELIVERED:
--- NOTE | 2020-08-21 13:00 | DI.RAD_ITS ---
EXAM: XR KNEE RT 2V AP,LAT CLINICAL HISTORY: f/u. TECHNIQUE: 2D digital imaging was performed. COMPARISON: CR XR KNEE LT 2V AP,LAT from 06/26/2020 FINDINGS: Again noted is a lateral fixation plate across the distal femur ending at the condyle level and secur ed by multiple screws at the femoral condyle level and there independent screws at the fracture site within the intercondylar notch. The fracture line is still seen violating the articular surface at t his level. There is no evidence of hardware loosening. No radiographic evidence of osteomyelitis. There is no obvious tibial plateau fracture. IMPRESSION: DATA REPOSITORY: RADIATION DOSE DELIVERED:
== END 2020-08-21 13:58 | disposition home or self-care (01) ==
LOC: DIORS 13:57
PROVIDERS: PCP Nurse Practitioner Family; Referring Provider Nurse Practitioner Family; Visit Provider Student in an Organized Health Care Education/Training Program
DX: S72.412D Displaced unspecified condyle fracture of lower end of left femur, subsequent encounter for closed fracture with routine healing (principal); S72.411D Displaced unspecified condyle fracture of lower end of right femur, subsequent encounter for closed fracture with routine healing; X58.XXXD Exposure to other specified factors, subsequent encounter
CPT/HCPCS: 99213; 73560

== ENCOUNTER 2020-09-22 11:48 | Outpatient (REF) | payer MEDICARE, SELFPAY ==
[2020-09-22 13:34] LABS: HCT 34.5 % (36.0-46.0); HGB 11.6 g/dL (11.2-15.7); MCH 32.8 pg (27.0-33.0); MCHC 33.6 % (32.0-36.0); MCV 97.5 fL (80-95); Platelet Count 327 10^3/uL (130-400); RBC 3.54 10^6/uL (3.93-5.22); RDW 11.2 % (11.7-14.6); RDW-SD 40.4 fL; WBC 7.07 10^3/uL (4.4-10.8)
[2020-09-22 13:55] LABS: ALT 19 U/L (14-59); AST 21 U/L (15-37); Albumin 4.4 g/dL (3.4-5.0); Alkaline Phosphatase 91 U/L (46-116); Anion Gap 6.9 mmol/L (3-11); BUN 12 mg/dL (7-18); Bilirubin, Total 0.4 mg/dL (0.2-1.0); CO2 29.1 mmol/L (21.0-32.0); CREATININE 0.6 mg/dL (0.55-1.02); Calcium 9.5 mg/dL (8.5-10.1); Calculated LDL 53 mg/dL (<100); Chloride 91 mmol/L (98-107); Cholesterol 175 mg/dL (<200); Glucose 87 mg/dL (74-106); HDL Cholesterol 112 mg/dL (40-60); Magnesium 1.6 mg/dL (1.8-2.4); Potassium 4.6 mmol/L (3.5-5.1); Sodium 127 mmol/L (136-145); Total Protein 7.3 g/dL (6.4-8.2); Triglyceride 51 mg/dL (<150)
[2020-09-25 05:15] LABS: Vitamin D 25 Total 30.4 ng/mL (30-100)
== END 2020-09-22 11:49 | disposition home or self-care (01) ==
LOC: LBN 11:48
PROVIDERS: PCP Nurse Practitioner Family; Visit Provider Nurse Practitioner Family
DX: I10 Essential (primary) hypertension (principal); D62 Acute posthemorrhagic anemia; E55.9 Vitamin D deficiency, unspecified; M81.0 Age-related osteoporosis without current pathological fracture
CPT/HCPCS: 80053; 80061; 82306; 85027; 83735

== ENCOUNTER 2020-11-03 09:42 | Outpatient (CLI) | payer MEDICARE, SELFPAY ==
[2020-11-03 12:30] LABS: Anion Gap 6.8 mmol/L (3-11); BUN 10 mg/dL (7-18); CO2 29.2 mmol/L (21.0-32.0); CREATININE 0.6 mg/dL (0.55-1.02); Calcium 8.9 mg/dL (8.5-10.1); Chloride 94 mmol/L (98-107); Glucose 90 mg/dL (74-106); Magnesium 1.7 mg/dL (1.8-2.4); Potassium 4.8 mmol/L (3.5-5.1); Sodium 130 mmol/L (136-145)
== END 2020-11-03 09:43 | disposition home or self-care (01) ==
LOC: LOS 09:43
PROVIDERS: PCP Nurse Practitioner Family; Referring Provider Nurse Practitioner Family; Visit Provider Nurse Practitioner Family
DX: E83.42 Hypomagnesemia (principal)
CPT/HCPCS: 36415; 80048; 83735

== ENCOUNTER 2020-12-19 16:10 | Outpatient (CLI) | payer MEDICARE, SELFPAY ==
--- NOTE | 2020-12-19 13:30 | DI.RAD_ITS ---
Exam(s) XR THORACIC SPINE COMPLETE XR LUMBAR SPINE AP, LAT EXAM: XR THORACIC SPINE COMPLETE and XR lumbar spine AP, Lat CLINICAL HISTORY: increased pain, r/o new compression fracture.m54.5. TECHNIQUE: 2D digital imaging was performed. COMPARISON: CR XR LUMBAR SPINE COMPLETE from 04/15/2019 CR XR PORTABLE CHEST AP from 03/27/2020 FINDINGS: Limited examination due to patient positioning and osteopenia. BONES: There are compression deformities in the lumbar spine which appears stable compared to the x-r ay of the lumbar spine from 04/15/2019. There are multiple compression fractures in the lower thorac ic spine which were not present on prior examinations. The bones are osteopenic. DISKS:There is exaggeration of the thoracic kyphosis. There is narrowing of the disc spaces througho ut thoracic spine. SOFT TISSUE: Visualized lungs are clear. Atherosclerosis. IMPRESSION: 1. Examination is limited by osteopenia and patient positioning. 2. Multiple thoracic compression fractures. They are of indeterminate acuity. These were not presen t on the most recent prior examinations. 3. Stable lumbar compression deformities. DATA REPOSITORY: RADIATION DOSE DELIVERED:
== END 2020-12-19 16:30 ==
PROVIDERS: PCP Nurse Practitioner Family; Visit Provider Physician Assistant
DX: M48.54XA Collapsed vertebra, not elsewhere classified, thoracic region, initial encounter for fracture (principal); M43.8X6 Other specified deforming dorsopathies, lumbar region; M85.88 Other specified disorders of bone density and structure, other site; G89.29 Other chronic pain
CPT/HCPCS: 72072; 72100

== ENCOUNTER 2021-02-01 02:27 | Outpatient (RCR) | payer MEDICARE, SELFPAY ==
[2021-02-01] MEDS: Normal Saline Flush 10 ML SYR IVP (14:00)
== END 2021-02-22 23:59 | disposition home or self-care (01) ==
LOC: INF 02:27
PROVIDERS: PCP Nurse Practitioner Family; Visit Provider Nurse Practitioner Family
DX: M81.8 Other osteoporosis without current pathological fracture (principal)
CPT/HCPCS: 96365; J3489

== ENCOUNTER 2021-03-19 13:14 | Outpatient (REF) | payer MEDICARE, SELFPAY ==
[2021-03-21 14:28] LABS: COVID-19 RT-PCR UVMMC Result Negative (Negative)
== END 2021-03-19 13:15 | disposition home or self-care (01) ==
LOC: LBN 13:14
PROVIDERS: PCP Nurse Practitioner Family; Visit Provider Physician Assistant
DX: Z20.822 Contact with and (suspected) exposure to COVID-19 (principal)
CPT/HCPCS: U0003

== ENCOUNTER 2021-04-04 21:25 | Emergency (ER) | payer MEDICARE, SELFPAY ==
[2021-04-04] VITALS (20 sets, daily range): BP systolic 101–128; BP diastolic 38–101; PULSE 72–84; RESP 12–22; TEMP 36.8; O2SAT 91–100
[2021-04-04 22:03] LABS: Abs Immature Grans 0.04 10^3/uL (0.0-0.06); Absolute Basophil Count 0.04 10^3/uL (0.0-0.2); Absolute Eosinophil Count 0.34 10^3/uL (0.0-0.7); Absolute Lymphocyte Count 2.44 10^3/uL (1.2-3.4); Absolute Monocyte Count 1.03 10^3/uL (0.1-0.8); Basophils % 0.4; Eosinophils % 3.1; HCT 32.2 % (36.0-46.0); HGB 11.4 g/dL (11.2-15.7); Immature Grans % 0.4; MCH 33.6 pg (27.0-33.0); MCHC 35.4 % (32.0-36.0); MPV 9.4 fL (8.0-11.0); Monocytes % 9.3; Neutrophils % 64.8; Nucleated RBC 0 %; Platelet Count 308 10^3/uL (130-400); RBC 3.39 10^6/uL (3.93-5.22); RDW 11.5 % (11.7-14.6); WBC 11.07 10^3/uL (4.4-10.8)
[2021-04-04 22:05] LABS: Absolute Neutrophil Count 7.17 10^3/uL (1.2-6.7)
[2021-04-04] MEDS: Normal Saline 1,000 ML 1000 ML IV (22:09)
[2021-04-04 22:10] LABS: Clarity Clear (Clear)
[2021-04-04 22:11] LABS: Bilirubin Small (Negative); Blood Negative (Negative); Glucose Negative (Negative); Ketones 15 mg/dL (Negative); Leukocyte Esterase Negative (Negative); Nitrite Negative (Negative); Urobilinogen 0.2 EU/dL (Up TO 0.2)
--- NOTE | 2021-04-04 22:54 | W.ED.GENAD ---
Discharge Plan Disposition Patient Disposition: HOME Condition: Stable Discharge Details Clinical Impression: Adult failure to thrive Primary Care Provider: Eileen Reynolds ED Provider: Spencer Oreilly Home Meds and New Rx's Prescriptions: Continued lisinopril 10 mg tablet 10 mg PO DAILY Qty: 90 RF: 4 calcium carbonate [Calcium 600] 600 mg calcium (1,500 mg) tablet 600 mg PO BID Qty: 90 RF: 0 naproxen 500 mg tablet 500 mg PO BID PRN (Reason: pain) RF: 0 acetaminophen 500 mg capsule 500 mg PO TID PRN (Reason: pain) RF: 0 zoledronic acid 4 mg recon soln 4 mg IV .Once a Year Qty: 1 RF: 0 magnesium oxide 500 mg capsule 500 mg PO DAILY Qty: 90 RF: 0 cholecalciferol (vitamin D3) 50 mcg (2,000 unit) capsule 2,000 unit PO DAILY Qty: 90 RF: 4 lutein 6 mg Capsule PO DAILY RF: 0 No Action tramadol 50 mg tablet 50 mg PO TID PRN (Reason: back pain) Qty: 90 RF: 0 Discharge Instructions Additional Instructions: At this time your laboratory values do not reveal any obvious emergent process. He has been given a liter of IV fluid and your blood pressure has come up nicely. If you are not going to eat or or drink, and are getting up, I strongly recommend that in the meantime you do not take your hypertension medication as your blood pressure was initially low this evening. Your sodium is low, is chronically well, you received IV fluid for this. Your calcium is slightly low, I did give you a single dose of oral calcium. I strongly recommend you contact your primary care provider tomorrow to discuss your wishes if you would like to move forward with palliative care and/or hospice care. Please watch for new or worsening symptoms and return to the ER for any concerns. Alternatively you could talk with them about starting an antidepressant and being sure to increase your oral intake and see if this helps your overall state Discharge Data Discharge Date/Time-TO BE ENTERED AT DEPARTURE: 04/05/21 00:09 Medical Decision Making This is a 75-year-old female presenting to the ER this evening via EMS for general malaise, lack of appetite, failure to thrive, steady decline over the past year after her . Patient states that at times she simply does not want to eat or drink, or even get out of bed. Patient was hypotensive via EMS however more normotensive after receiving 500 bolus of fluid. Patient does report alcohol use, last drink was a couple of days ago. She does have known chronic hyponatremia. Patient states that her ultimate goal is to get home, would prefer not to be hospitalized. Patient does admit that she has been having a hard time after the of her but denies any suicidal ideation. Patient really has no focal complaints, appears to be more of a failure to thrive presentation. Will get a second liter of IV fluids and obtain routine screening laboratory values. Laboratory values reveal a white blood cell count of 11.07, hemoglobin 11.4 hematocrit 32.2 platelet count 308. Sodium 125. Chronic hyponatremia. Patient given a liter of IV fluid. Potassium 4.6. Creatinine 0.6 with a GFR greater than 60. BUN of 35. Patient denies any black tarry stools or bright red blood in her stools. Glucose of 76, no difficulty with mentation. Calcium 7.6 when albumin adjusted. Will give a single dose of oral calcium now. Urinalysis clear, 15 ketones negative nitrate, negative leuk esterase, no signs of infection. Patient received her liter of IV fluid after the initial 500 bolus. Blood pressure continues to trend up, now 128/58. She was able to ambulate using a walker without any difficulty. She states that she subjectively feels much improved with the IV hydration. We did have a rather transparent conversation regarding her overall presentation, failure to thrive, and wishes. Again, patient would prefer to be discharged home at this time, her daughter is comfortable bringing her home in her current condition. We discussed the importance of adequate p.o. intake and setting very realistic expectations. Patient herself is unsure if she would like to pursue palliative-hospice care or potentially initiate an outpatient antidepressant and see how things go. Unfortunately it is after hours this evening, will place her on the care management list to help expedite potential outpatient palliative and/or hospice discussion with her primary care provider. I will also be sure to see see this note to her PCP. Standard discharge and return precautions were provided. This documentation was generated using seedtagation system, please disregard any oddities of phrase or misspellings. Medical Records Medical records reviewed: Yes I reviewed the patient's medical records. Lab Data Lab results reviewed: Yes I reviewed the patient's lab results. Labs: Laboratory Tests Range/Units 04/04/21 04/04/21 04/04/21 21:45 21:50 22:20 WBC (4.4-10.8) 10^3/uL 11.07 H RBC (3.93-5.22) 10^6/uL 3.39 L Hgb (11.2-15.7) g/dL 11.4 Hct (36.0-46.0) % 32.2 L MCV (80-95) fL 95.0 MCH (27.0-33.0) pg 33.6 H MCHC (32.0-36.0) % 35.4 RDW (11.7-14.6) % 11.5 L Plt Count (130-400) 10^3/uL 308 MPV (8.0-11.0) fL 9.4 Immature Gran % 0.4 Neutrophils % 64.8 Lymphocytes % 22.0 Monocytes % 9.3 Eosinophils % 3.1 Basophils % 0.4 Nucleated RBC % % 0 Absolute Neutrophils (1.2-6.7) 10^3/uL 7.17 H Absolute Lymphocytes (1.2-3.4) 10^3/uL 2.44 Absolute Monocytes (0.1-0.8) 10^3/uL 1.03 H Absolute Eosinophils (0.0-0.7) 10^3/uL 0.34 Absolute Basophils (0.0-0.2) 10^3/uL 0.04 Sodium (136-145) mmol/L 125 L Potassium (3.5-5.1) mmol/L 4.6 Chloride (98-107) mmol/L 94 L Carbon Dioxide (21.0-32.0) mmol/L 20.0 L Anion Gap (3-11) mmol/L 11.0 BUN (7-18) mg/dL 35 H Creatinine (0.55-1.02) mg/dL 0.6 Estimated GFR/1.73 m2 (mL/min/1.73m2) >= 60.00 Glucose (74-106) mg/dL 76 Calcium (8.5-10.1) mg/dL 7.0 L Total Bilirubin (0.2-1.0) mg/dL 0.4 AST (15-37) U/L 15 ALT (14-59) U/L 10 L Alkaline Phosphatase (46-116) U/L 47 Total Protein (6.4-8.2) g/dL 5.0 L Albumin (3.4-5.0) g/dL 3.2 L Urine Color (Yellow) Yellow Urine Clarity (Clear) Clear Urine pH (5-8) 6.0 Ur Specific Carpenter (1.005-1.025) 1.020 Urine Protein (Negative) mg/dL Negative Urine Ketones (Negative) mg/dL 15 H Urine Blood (Negative) Negative Urine Nitrite (Negative) Negative Urine Bilirubin (Negative) Small H Urine Urobilinogen (Up TO 0.2) EU/dL 0.2 Ur Leukocyte Esterase (Negative) Negative Urine Glucose (Negative) mg/dL Negative HPI General Mode of arrival: EMS. Date/Time Provider Initiated Documentation: 04/04/21 21:34. Limitations to Documentation: no limitations. Information obtained by: patient, family and EMS. HPI Narrative: This is a 75-year-old female, past medical history of alcohol abuse, COPD, vertebral compression fracture, hypertension, multiple fractures, current smoker, lives at home alone but has strong family support, typically ambulates with a walker, presenting to the ER today for evaluation of general malaise and failure to thrive. Patient does have chronic back pain as well. Patient has no other acute concerns or complaints otherwise feels well. Initial triage note reports dysuria but patient denies any dysuria to me. She states that she has had decreased p.o. intake and therefore is not urinating typically. I was able to speak with her daughter, Jacquie, and it sounds as though her back in the beginning of this year and she has had a steady decline over the past several months although now over the past couple of weeks has not wanted to eat, and has not wanted to really get out of bed. She feels as though her mother is giving up. They are questioning if she should initiate palliative care or hospice care. She has not been placed on any antidepressant for her ongoing symptoms. EMS noted the patient to be hypotensive in the field but was given 500 cc normal saline and blood pressure began to increase. Related Data Home Medications Medication Instructions Recorded Confirmed lutein mg PO DAILY 10/01/18 04/06/21 calcium carbonate 600 mg calcium 600 mg PO BID #90 tab 07/29/19 04/06/21 (1,500 mg) tablet cholecalciferol (vitamin D3) 50 2,000 unit PO DAILY #90 cap 09/27/20 04/06/21 mcg (2,000 unit) capsule magnesium oxide 500 mg capsule 500 mg PO DAILY #90 cap 09/27/20 04/06/21 lisinopril 10 mg tablet 10 mg PO DAILY #90 tab-cap 01/05/21 04/06/21 acetaminophen 500 mg capsule 500 mg PO TID PRN cap 04/02/21 04/06/21 naproxen 500 mg tablet 500 mg PO BID PRN 04/02/21 04/06/21 zoledronic acid 4 mg intravenous 4 mg IV .Once a Year #1 ea 04/02/21 04/06/21 solution tramadol 50 mg tablet 50 mg PO TID PRN #90 tab 04/06/21 04/06/21 Previous Rx's Medication Instructions Recorded calcium carbonate 600 mg calcium 600 mg PO BID #90 tab 07/29/19 (1,500 mg) tablet cholecalciferol (vitamin D3) 50 2,000 unit PO DAILY #90 cap 09/27/20 mcg (2,000 unit) capsule magnesium oxide 500 mg capsule 500 mg PO DAILY #90 cap 09/27/20 lisinopril 10 mg tablet 10 mg PO DAILY #90 tab-cap 01/05/21 zoledronic acid 4 mg intravenous 4 mg IV .Once a Year #1 ea 04/02/21 solution tramadol 50 mg tablet 50 mg PO TID PRN #90 tab 04/06/21 Allergies Allergy/AdvReac Type Severity Reaction Status Date / Time lorazepam Allergy Severe Visual Verified 03/19/21 12:48 Disturbances Penicillins Allergy Unknown Verified 03/19/21 12:48 General Stated Complaint: Urinary FRANCISCA: 3 Review of Systems Constitutional Constitutional: Reports fatigue, Denies fever(s), Denies headache(s) and Reports malaise ENT Ears, Nose, Mouth, and Throat: Denies headache(s) and Denies neck pain Cardiovascular Cardiovascular: Denies chest pain and Denies dyspnea Respiratory Respiratory: Denies cough and Denies dyspnea Gastrointestinal Gastrointestinal: Denies abdominal pain, Denies nausea and Denies vomiting Genitourinary Genitourinary: Denies dysuria Musculoskeletal Musculoskeletal: Denies neck pain Integumentary/Breasts Skin/Breast: Denies rash Neurologic Neurologic: Denies headache(s) and Reports weakness (Generalized) Psychiatric Psychiatric: Reports depression and Denies suicidal ideation Endocrine Endocrine: Reports fatigue [facility] Medical History Alcohol use disorder Alcoholic gastritis with bleeding Basal cell carcinoma of nose Chronic hyponatremia Chronic malnutrition Compression fracture of vertebra COPD (chronic obstructive pulmonary disease) Essential hypertension Femoral condyle fracture Bilateral Lumbar compression fracture Osteoporosis Multiple fractures Pulmonary hypertension Thoracic compression fracture (~11/2020) Upper GI bleed Vitamin D deficiency Surgical History History of basal cell carcinoma (BCC) excision History of esophagogastroduodenoscopy (EGD) (01/09/12) History of tubal ligation Hx of cataract surgery S/P Mohs surgery for basal cell carcinoma S/P ORIF (open reduction internal fixation) fracture (03/28/20) of Bilateral Distal Femur Fracture with Intercondylar split Family History Mother Alcohol abuse Father Heart disease Social History Smoking/Tobacco Use Status: Current every day Tobacco Type: cigarettes Smoking packs per day: 0.5 Smoking cigarettes per day: 10.0 Years smoked: 50 Smoking pack-years: 25.00 Tobacco: How many years used: 50 Counseling given: provider counseling Smoking risk assessment performed?: Yes Alcohol Intake: current Alcohol Intake frequency: 0-2 drinks per day Alcohol type: wine Counseling provided: provider counseling Drug use: Never Substance use type: does not use Household members: spouse and other Housing: house Number of Children: 4 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 [employer] Pets and animals: Yes Pets and animals: dog(s) What is your relationship status?: Panel score (0-1 are the most socially isolated patients): 1 What type of physical activity do you participate in: none Special lissy needs: No Do you feel safe at home: Yes Do you feel safe in your relationship?: Yes Exam Const General: cooperative, comfortable, no acute distress and ill appearing chronically Nutritional Appearance: well nourished and cachectic Orientation: alert and awake HENSD Head: normal to inspection, normocephalic and atraumatic Face and sinus: normal facial exam Mouth: moist mucous membranes abnormal (dry) Eyes General: appearance normal, both eyes and all related structures Conjunctivae: conjunctivae normal Neck Neck: normal visual inspection, full ROM, no meningeal signs, trachea midline and supple Resp Effort & Inspection: normal respiratory effort and able to speak in complete sentences Auscultation: clear to auscultation bilaterally Cardio Rate: regular rate Rhythm: regular rhythm GI Inspection: normal to inspection Palpation: soft, not firm, no guarding, no pulsatile masses and nontender Auscultation: normal bowel sounds Back/Spine/Pelvis Back: no CVA tenderness and back tenderness (Diffuse, mild lumbar. Chronic per patient) Skin General skin exam: no rashes or lesions noted Neuro General: patient alert, patient awake, patient oriented x3, moves all extremities and no focal motor deficits Cognition: normal cognition Speech: speech normal Gait: normal gait and gait assisted Method: walker Motor: muscle tone normal throughout and strength 5/5 throughout Sensory Exam: no sensory deficits noted Extrem General: normal to inspection, full ROM, capillary refill normal, no pedal edema and no calf tenderness Psych Appearance: grossly normal Mental Status: mental status grossly normal Course Vital Signs Vital signs: Vital Signs Temperature 36.8 C 04/04/21 21:25 Pulse 75 04/04/21 21:25 Respiratory Rate 18 04/04/21 21:25 Blood Pressure 101/41 L 04/04/21 21:25 Pulse Oximetry 93 04/04/21 21:25 Temperature 36.8 C 04/04/21 21:25 Temperature Source Tympanic 04/04/21 21:25 Pulse 76 04/04/21 21:43 Respiratory Rate 18 04/04/21 21:25 Respiratory Effort 04/04/21 21:34 Blood Pressure 121/101 H 04/04/21 21:43 Blood Pressure Position Supine 04/04/21 21:25 Pulse Oximetry 98 04/04/21 21:56 Oxygen Delivery Method Room Air 04/04/21 21:25 Oxygen Flow Rate 0 04/04/21 21:25 Pain Level 7 04/04/21 21:35 Lab/Test Results Lab/Test Results: Laboratory Tests Range/Units 04/04/21 04/04/21 21:45 21:50 WBC (4.4-10.8) 10^3/uL 11.07 H RBC (3.93-5.22) 10^6/uL 3.39 L Hgb (11.2-15.7) g/dL 11.4 Hct (36.0-46.0) % 32.2 L MCV (80-95) fL 95.0 MCH (27.0-33.0) pg 33.6 H MCHC (32.0-36.0) % 35.4 RDW (11.7-14.6) % 11.5 L Plt Count (130-400) 10^3/uL 308 MPV (8.0-11.0) fL 9.4 Immature Gran % 0.4 Neutrophils % 64.8 Lymphocytes % 22.0 Monocytes % 9.3 Eosinophils % 3.1 Basophils % 0.4 Nucleated RBC % % 0 Absolute Neutrophils (1.2-6.7) 10^3/uL 7.17 H Absolute Lymphocytes (1.2-3.4) 10^3/uL 2.44 Absolute Monocytes (0.1-0.8) 10^3/uL 1.03 H Absolute Eosinophils (0.0-0.7) 10^3/uL 0.34 Absolute Basophils (0.0-0.2) 10^3/uL 0.04 Urine Color (Yellow) Yellow Urine Clarity (Clear) Clear Urine pH (5-8) 6.0 Ur Specific Carpenter (1.005-1.025) 1.020 Urine Protein (Negative) mg/dL Negative Urine Ketones (Negative) mg/dL 15 H Urine Blood (Negative) Negative Urine Nitrite (Negative) Negative Urine Bilirubin (Negative) Small H Urine Urobilinogen (Up TO 0.2) EU/dL 0.2 Ur Leukocyte Esterase (Negative) Negative Urine Glucose (Negative) mg/dL Negative
[2021-04-04 23:16] LABS: Albumin 3.2 g/dL (3.4-5.0); Alkaline Phosphatase 47 U/L (46-116); BUN 35 mg/dL (7-18); Bilirubin, Total 0.4 mg/dL (0.2-1.0); CREATININE 0.6 mg/dL (0.55-1.02); Glucose 76 mg/dL (74-106); Potassium 4.6 mmol/L (3.5-5.1); Sodium 125 mmol/L (136-145)
[2021-04-04 23:17] LABS: ALT 10 U/L (14-59); AST 15 U/L (15-37); Chloride 94 mmol/L (98-107)
[2021-04-04] MEDS: Calcium Citrate 950 MG TAB PO (23:53)
== END 2021-04-05 00:09 | disposition home or self-care (01) ==
PROVIDERS: Emergency Provider Physician Assistant; PCP Nurse Practitioner Family
DX: R62.7 Adult failure to thrive (principal); R53.81 Other malaise; R30.0 Dysuria; I95.9 Hypotension, unspecified
CPT/HCPCS: 80053; 96360; 99284; 81003; 85025

== ENCOUNTER 2021-05-08 01:24 | Outpatient (CLI) | payer MEDICARE, SELFPAY ==
--- NOTE | 2021-05-08 08:15 | DI.CT_ITS ---
Exam(s) CT CHEST W EXAM: CT CHEST W CLINICAL HISTORY: wt loss, anorexia, heavy smoker,f17.200,r63.4,j44.9 TECHNIQUE: Imaging Protocol: Axial computed tomography images with coronal and sagittal reformatted images were created and reviewed CONTRAST MATERIAL: Intravenous: Omnipaque 350 Contrast volume:70 mL. COMPARISON: CT CHEST - LUNG CANCER SCREENING from 01/20/2018 CT CHEST - LUNG CANCER SCREENING from 01/20/2018 CR XR LUMBAR SPINE AP, LAT from 12/19/2020 CR XR LUMBAR SPINE AP, LAT from 12/19/2020 FINDINGS: Tracheobronchial tree: There is some debris seen in the right and left mainstem bronchi which may ref lect aspiration. Pulmonary parenchyma: No consolidation or dominant measurable mass. Moderately severe emphysematous c hanges are present in the lungs. Mediastinum and Taylor: No dominant adenopathy or fluid collection. Thyroid gland: Unremarkable. Pleura: No effusion or pneumothorax. Pulmonary arteries: No evidence of a pulmonary embolism. Heart: The heart is not dilated. Coronary artery calcifications are present. No pericardial effusion. Aorta: Thoracic aorta non-dilated. Atherosclerosis. Upper abdomen: There is dilatation of the common bile duct to 0.9 cm. Lymph nodes: Within normal limits. Bones: There is again seen seen compression fractures in the lower thoracic and lumbar spine which ap pears stable compared to 12/19/2020 x-ray. There is sclerosis of the T11, T12, L1 and L2 vertebral bod ies. Metastatic disease cannot be excluded. Soft tissues: Unremarkable. IMPRESSION: 1. No evidence of a pulmonary mass or thoracic adenopathy. 2. Moderately severe emphysema. 3. Debris in both right and left mainstem bronchi suspicious for aspiration. 4. Compression fracture deformities in the lower thoracic and upper lumbar spine. There is some scler osis of the vertebral bodies. This may be secondary to healing of the compression fractures. Metastat ic disease cannot be entirely excluded. 5. Dilatation of the common bile duct. Ultrasound may be considered for further evaluation. CT and/or MRI of the abdomen should also be considered for further evaluation. RADIATION DOSE DELIVERED: 184.74mGy.cm Total DLP DATA REPOSITORY: All CT scans at this facility are submitted to the National Radiology Data Registry (NRDR) Dose Index Registry (DIR) with the [employer] (A[employer]). RADIATION OPTIMIZATION: All CT scans at this facility use at least one of these dose optimization te chniques: automated exposure control; mA and/or kV adjustment per patient size (includes targeted exa ms where dose is matched to clinical indication); or iterative reconstruction.
[2021-05-08 14:17] LABS: ALT 12 U/L (14-59); AST 19 U/L (15-37); Albumin 3.4 g/dL (3.4-5.0); Alkaline Phosphatase 45 U/L (46-116); Anion Gap 4.3 mmol/L (3-11); BUN 11 mg/dL (7-18); Bilirubin, Total 0.3 mg/dL (0.2-1.0); CO2 30.7 mmol/L (21.0-32.0); CREATININE 0.4 mg/dL (0.55-1.02); Calcium 8.3 mg/dL (8.5-10.1); Chloride 89 mmol/L (98-107); Glucose 119 mg/dL (74-106); Potassium 3.7 mmol/L (3.5-5.1); Total Protein 5.7 g/dL (6.4-8.2)
[2021-05-08 14:22] LABS: Sodium 124 mmol/L (136-145)
== END 2021-05-08 01:44 ==
PROVIDERS: PCP Nurse Practitioner Family; Visit Provider Family Medicine
DX: R63.4 Abnormal weight loss; J44.9 Chronic obstructive pulmonary disease, unspecified; F17.200 Nicotine dependence, unspecified, uncomplicated; R91.8 Other nonspecific abnormal finding of lung field; M43.8X6 Other specified deforming dorsopathies, lumbar region; M43.8X4 Other specified deforming dorsopathies, thoracic region
CPT/HCPCS: 80053; 71260

== ENCOUNTER 2021-07-13 03:56 | Outpatient (CLI) | payer MEDICARE, SELFPAY ==
[2021-07-13 11:29] LABS: HCT 36.3 % (36.0-46.0); HGB 12.1 g/dL (11.2-15.7); MCH 33.2 pg (27.0-33.0); MCHC 33.3 % (32.0-36.0); MCV 99.7 fL (80-95); MPV 8.8 fL (8.0-11.0); Platelet Count 306 10^3/uL (130-400); RBC 3.64 10^6/uL (3.93-5.22); RDW 11.8 % (11.7-14.6); RDW-SD 43.3 fL; WBC 5.46 10^3/uL (4.4-10.8)
[2021-07-13 13:18] LABS: ALT 15 U/L (14-59); AST 18 U/L (15-37); Albumin 3.8 g/dL (3.4-5.0); Alkaline Phosphatase 73 U/L (46-116); Anion Gap 8.1 mmol/L (3-11); BUN 9 mg/dL (7-18); Bilirubin, Total 0.3 mg/dL (0.2-1.0); CO2 29.9 mmol/L (21.0-32.0); CREATININE 0.6 mg/dL (0.55-1.02); Calcium 8.4 mg/dL (8.5-10.1); Chloride 92 mmol/L (98-107); Glucose 97 mg/dL (74-106); Sodium 130 mmol/L (136-145); Total Protein 6.4 g/dL (6.4-8.2)
[2021-07-14 15:44] LABS: Adrenocorticotropic Hormone, P 53 pg/mL
[2021-07-16 14:19] LABS: Albumin 67.3 % (55.8-66.1); Total Protein 6.1 g/dL (6.3-8.2)
== END 2021-07-13 03:57 | disposition home or self-care (01) ==
LOC: LBO 03:57
PROVIDERS: PCP Nurse Practitioner Family; Visit Provider Family Medicine
DX: E46 Unspecified protein-calorie malnutrition (principal); E87.1 Hypo-osmolality and hyponatremia; R54 Age-related physical debility
CPT/HCPCS: 36415; 80053; 82533; 85027; 82024; 84165

== ENCOUNTER 2022-02-08 01:12 | Outpatient (RCR) | payer MEDICARE, SELFPAY ==
[2022-02-08] MEDS: ZOLEDRONIC ACID/MANNITOL/WATER 5 MG/100 ML BTL 300 MG IVPB (13:47)
[2022-02-08] MEDS: Normal Saline Flush 10 ML SYR IVP (13:47)
== END 2022-02-22 23:59 | disposition home or self-care (01) ==
LOC: INF 01:12
PROVIDERS: PCP Nurse Practitioner Family; Visit Provider Nurse Practitioner Family
DX: M81.0 Age-related osteoporosis without current pathological fracture (principal)
CPT/HCPCS: 96365; J3489

== ENCOUNTER 2022-05-03 14:12 | Outpatient (REF) | payer MEDICARE, SELFPAY ==
[2022-05-03 14:04] LABS: C Diff PCR Negative (Negative)
== END 2022-05-03 14:13 | disposition home or self-care (01) ==
LOC: LBN 14:12
PROVIDERS: PCP Nurse Practitioner Family; Visit Provider Family Medicine
DX: R19.7 Diarrhea, unspecified (principal)
CPT/HCPCS: 87329; 87493

== ENCOUNTER 2022-05-13 12:27 | Emergency (ER) | payer MEDICARE, SELFPAY ==
[2022-05-13] VITALS (7 sets, daily range): BP systolic 185–205; BP diastolic 69–82; PULSE 74–80; RESP 18; TEMP 36.6; O2SAT 85–100
--- NOTE | 2022-05-13 12:30 | DI.CT_ITS ---
Exam(s) CT HEAD CERVICAL SPINE WO EXAM: CT HEAD CERVICAL SPINE WO CLINICAL HISTORY: fall, head trauma, neck pain. TECHNIQUE: Imaging Protocol: Axial computed tomography images with coronal and sagittal reformatted images were created and reviewed COMPARISON: US CAROTID ULTRASOUND from 10/28/2011 CR XR THORACIC SPINE COMPLETE from 12/19/[address] CHEST W from 05/08/2021 FINDINGS: Head CT Ventricles and Extra axial spaces: Normal in size and morphology for the patient's age. Hemorrhage: None. Cerebral parenchyma: Mild atrophy. Mild white matter changes of small vessel disease. Old lacunar i nfarct left frontal white matter. Calcifications right frontal and left parietal lobe. Midline shift: None. Brainstem/Cerebellum: Normal. Calvarium: Normal. Visualized Paranasal sinuses/Mastoids: Clear. Cervical Spine CT BONES: Vertebral body heights are maintained. The neck is held in extension. There are chronic appea ring deformities of the spinous processes of C3 and C4. There is prominent thoracic kyphosis. There is no evidence of acute fracture. Degenerative disc changes and facet degenerative changes are seen . SOFT TISSUES: No paraspinal hematoma. The airway appears intact. No pneumothorax is seen at the lung apices. Moderate emphysematous changes bilaterally. IMPRESSION: Head CT: No acute abnormality. C-spine CT: Hyperlordosis and degenerative changes, no acute abnormality. The findings were called to Dr. Bang of the Emergency Department RADIATION DOSE DELIVERED: 1,270.21mGy.cm Total DLP DATA REPOSITORY: All CT scans at this facility are submitted to the National Radiology Data Registry (NRDR) Dose Index Registry (DIR) with the [employer] ([employer]). RADIATION OPTIMIZATION: All CT scans at this facility use at least one of these dose optimization te chniques: automated exposure control; mA and/or kV adjustment per patient size (includes targeted exa ms where dose is matched to clinical indication); or iterative reconstruction.
--- NOTE | 2022-05-13 12:30 | DI.CT_ITS ---
Exam(s) CT THORACIC LUMBAR SPINE WO EXAM: CT THORACIC LUMBAR SPINE WO CLINICAL HISTORY: trauma, midline lower lumbar and sacral tenderness. TECHNIQUE: Imaging Protocol: Axial, coronal and sagittal images were reconstructed utilizing bone a nd soft tissue algorithm.. COMPARISON: CR XR LUMBAR SPINE AP, LAT from 12/19/[address] CHEST W from 05/08/2021 FINDINGS: Thoracic spine: Bones: Stable appearance of compression fractures of T9 through T12. Soft tissues: No paraspinal hematoma. Emphysematous changes. Lumbar spine: Stable compression fractures L1, L3-L5. Sacrum: Acute appearing fracture at the S3-4 level extending transversely. No additional sacral frac tures visualized. SI joints are not widened. The bones are extremely for osteoporotic, reducing the sensitivity for fracture detection in the sacrum. Soft tissues: There is no large disc herniation. No paraspinal hematoma. Aorta heavily calcified. Urinary bladder distended. IMPRESSION: Acute sacral fracture at the S3-4 level. Stable compression fractures of the thoracic and lumbar spi ne. Findings were called to Dr. Chip Bang of the emergency department RADIATION DOSE DELIVERED: 425.42mGy.cm Total DLP DATA REPOSITORY: All CT scans at this facility are submitted to the National Radiology Data Registry (NRDR) Dose Index Registry (DIR) with the [employer] (ACR). RADIATION OPTIMIZATION: All CT scans at this facility use at least one of these dose optimization te chniques: automated exposure control; mA and/or kV adjustment per patient size (includes targeted exa ms where dose is matched to clinical indication); or iterative reconstruction.
--- NOTE | 2022-05-13 12:42 | NUR.NOTE ---
Nursing Note: Per patient today, we can give her daughter Jacquie information regarding this visit. Jacquie [phone]
[2022-05-13 13:37] LABS: Abs Immature Grans 0.14 10^3/uL (0.0-0.06); Absolute Eosinophil Count 0.05 10^3/uL (0.0-0.7); Absolute Lymphocyte Count 2.08 10^3/uL (1.2-3.4); Absolute Neutrophil Count 11.95 10^3/uL (1.2-6.7); Basophils % 0.3; Eosinophils % 0.3; HCT 36.5 % (36.0-46.0); Immature Grans % 0.9; Lymphocytes % 13.5; MCH 32.8 pg (27.0-33.0); MCHC 32.9 % (32.0-36.0); MCV 100 fL (80-95); MPV 9.2 fL (8.0-11.0); Monocytes % 7.6; Neutrophils % 77.4; Platelet Count 317 10^3/uL (130-400); RBC 3.66 10^6/uL (3.93-5.22); RDW 12.8 % (11.7-14.6); RDW-SD 46.9 fL; WBC 15.44 10^3/uL (4.4-10.8)
[2022-05-13 13:42] LABS: Absolute Basophil Count 0.05 10^3/uL (0.0-0.2); Absolute Monocyte Count 1.17 10^3/uL (0.1-0.8)
[2022-05-13 13:51] LABS: ALT 23 U/L (14-59); AST 35 U/L (15-37); Albumin 4.2 g/dL (3.4-5.0); Alkaline Phosphatase 72 U/L (46-116); Anion Gap 5.3 mmol/L (3-11); BUN 18 mg/dL (7-18); Bilirubin, Total 0.5 mg/dL (0.2-1.0); CO2 31.7 mmol/L (21.0-32.0); CREATININE 0.6 mg/dL (0.55-1.02); Calcium 8.9 mg/dL (8.5-10.1); Chloride 97 mmol/L (98-107); Estimated GFR 92.39 (mL/min/1.73m2); Glucose 88 mg/dL (74-106); Magnesium 1.9 mg/dL (1.8-2.4); Potassium 4.9 mmol/L (3.5-5.1); Sodium 134 mmol/L (136-145); Total Protein 7.4 g/dL (6.4-8.2)
[2022-05-13 14:02] LABS: PTT Activated 24.7 sec (21.0-27.5); Prothrombin Time 10.3 sec (9.3-11.0)
--- NOTE | 2022-05-13 15:15 | ED.GENADUL_ITS ---
Discharge Plan Disposition Patient Disposition: Home Condition: Stable Discharge Details Clinical Impression: Closed sacral fracture, Fall Primary Care Provider: Eileen Reynolds ED Provider: Chip Bang Home Meds and New Rx's Prescriptions: Continued aspirin 81 mg tablet,delayed release (DR/EC) 81 mg PO DAILY Qty: 1 0RF calcium carbonate [Calcium 600] 600 mg calcium (1,500 mg) tablet 600 mg PO BID Qty: 90 0RF Rx Instructions: 07-29-19 not sent/OTC acetaminophen 500 mg capsule 500 mg PO TID PRN (Reason: pain) zoledronic acid 4 mg recon soln 4 mg IV .Once a Year Qty: 1 0RF cholecalciferol (vitamin D3) 50 mcg (2,000 unit) capsule 2,000 unit PO DAILY Qty: 90 4RF Rx Instructions: Take 1 daily after the 8 weeks of the 50,000unit dose duloxetine 30 mg capsule,delayed release(DR/EC) See Rx Instructions .ROUTE .COMPLEX Qty: 45 5RF Dose Instruction: TAKE ONE CAPSULE BY MOUTH EVERY DAY Rx Instructions: TAKE ONE CAPSULE BY MOUTH EVERY DAY lisinopril 10 mg tablet 10 mg PO DAILY Qty: 90 3RF tramadol 50 mg tablet 50 mg PO TID PRN (Reason: Back Pain) Label Comments: TAKE ONE TABLET BY MOUTH THREE TIMES A DAY NEEDED FOR BACK PAIN lutein 6 mg Capsule 6 mg PO DAILY Discharge Instructions Instructions: Fall Prevention for Older Adults (ED), Sacral Fracture (ED) Additional Instructions: Please take acetaminophen (tylenol) - 325mg every 6 hours by mouth as needed for pain. Please contact your primary care physician to arrange follow-up. Return to the ER immediately for any worsening or new concerning symptoms. Referrals: Eileen Reynolds NP [Primary Care Provider] - Medical Decision Making 1430 --76-year-old female here after mechanical trip and fall with pain in her low lumbar spine and sacrum as well as pain in her neck. Patient is hypertensive. Lungs clear to auscultation bilaterally. Airway intact. Abdominal exam benign. Patient does have tenderness in the midline low back. Concern for lumbar sacral fracture. Plan to obtain CT imaging. Patient also with pain in her neck with attempted movement. Will obtain CT of the cervical and thoracic spine. Consider acute life-threatening intracranial traumatic hemorrhage given mechanism. We will also obtain CT of the head. Screening labs were reviewed and leukocytosis noted. 1522 -- I spoke with Dr. Roberto, on-call radiologist, she interpreted CT head and cervical spine as negative for acute injury. 1555 --CT of the thoracic and lumbar spine interpreted by radiology: Chronic compression fracture with no acute injury. She does note a new sacral fracture that is minimally displaced. Results were reviewed with the patient. Patient able to ambulate with ass istance to commode. Tylenol 500 mg was given for pain. Plan for discharge with outpatient follow-up. I did speak with the patient's palliative care physician Dr. Oscar who will follow up with the patient. Disposition decision was made weighing the risks and benefits of hospitalization versus outpatient treatment, the risk for further decompensation, and the patient's wishes. The patient was stable and requested discharge. Prior to discharge, my usual and customary return precautions were reviewed with the patient - this included follow-up instructions and reason to return to the emergency department if condition worsens, does not improve as expected, or other new concerns arise. Lab Data Lab results reviewed: Yes I reviewed the patient's lab results. Labs: Laboratory Tests Range/Units 05/13/22 05/13/22 05/13/22 13:22 13:22 13:22 WBC (4.4-10.8) 10^3/uL RBC (3.93-5.22) 10^6/uL Hgb (11.2-15.7) g/dL Hct (36.0-46.0) % MCV (80-95) fL MCH (27.0-33.0) pg MCHC (32.0-36.0) % RDW (11.7-14.6) % Plt Count (130-400) 10^3/uL MPV (8.0-11.0) fL Immature Gran % Neutrophils % Lymphocytes % Monocytes % Eosinophils % Basophils % Nucleated RBC % (0.0-0.3) % Absolute Neutrophils (1.2-6.7) 10^3/uL Absolute Lymphocytes (1.2-3.4) 10^3/uL Absolute Monocytes (0.1-0.8) 10^3/uL Absolute Eosinophils (0.0-0.7) 10^3/uL Absolute Basophils (0.0-0.2) 10^3/uL PT (9.3-11.0) sec 10.3 INR (0.9-1.1) 1.0 APTT (21.0-27.5) sec 24.7 Sodium (136-145) mmol/L 134 L Potassium (3.5-5.1) mmol/L 4.9 Chloride (98-107) mmol/L 97 L Carbon Dioxide (21.0-32.0) mmol/L 31.7 Anion Gap (3-11) mmol/L 5.3 BUN (7-18) mg/dL 18 Creatinine (0.55-1.02) mg/dL 0.6 Est GFR (CKD-EPI 2020) (mL/min/1.73m2) 92.39 Glucose (74-106) mg/dL 88 Calcium (8.5-10.1) mg/dL 8.9 Magnesium (1.8-2.4) mg/dL 1.9 Total Bilirubin (0.2-1.0) mg/dL 0.5 AST (15-37) U/L 35 ALT (14-59) U/L 23 Alkaline Phosphatase (46-116) U/L 72 Total Protein (6.4-8.2) g/dL 7.4 Albumin (3.4-5.0) g/dL 4.2 Patient ABO/Rh A Negative Antibody Screen NEGATIVE Range/Units 05/13/22 13:22 WBC (4.4-10.8) 10^3/uL 15.44 H RBC (3.93-5.22) 10^6/uL 3.66 L Hgb (11.2-15.7) g/dL 12.0 Hct (36.0-46.0) % 36.5 MCV (80-95) fL 100 H MCH (27.0-33.0) pg 32.8 MCHC (32.0-36.0) % 32.9 RDW (11.7-14.6) % 12.8 Plt Count (130-400) 10^3/uL 317 MPV (8.0-11.0) fL 9.2 Immature Gran % 0.9 Neutrophils % 77.4 Lymphocytes % 13.5 Monocytes % 7.6 Eosinophils % 0.3 Basophils % 0.3 Nucleated RBC % (0.0-0.3) % 0.0 Absolute Neutrophils (1.2-6.7) 10^3/uL 11.95 H Absolute Lymphocytes (1.2-3.4) 10^3/uL 2.08 Absolute Monocytes (0.1-0.8) 10^3/uL 1.17 H Absolute Eosinophils (0.0-0.7) 10^3/uL 0.05 Absolute Basophils (0.0-0.2) 10^3/uL 0.05 PT (9.3-11.0) sec INR (0.9-1.1) APTT (21.0-27.5) sec Sodium (136-145) mmol/L Potassium (3.5-5.1) mmol/L Chloride (98-107) mmol/L Carbon Dioxide (21.0-32.0) mmol/L Anion Gap (3-11) mmol/L BUN (7-18) mg/dL Creatinine (0.55-1.02) mg/dL Est GFR (CKD-EPI 2020) (mL/min/1.73m2) Glucose (74-106) mg/dL Calcium (8.5-10.1) mg/dL Magnesium (1.8-2.4) mg/dL Total Bilirubin (0.2-1.0) mg/dL AST (15-37) U/L ALT (14-59) U/L Alkaline Phosphatase (46-116) U/L Total Protein (6.4-8.2) g/dL Albumin (3.4-5.0) g/dL Patient ABO/Rh Antibody Screen HPI General Mode of arrival: EMS . Date/Time Provider Initiated Documentation: 05/13/22 12:41 . Limitations to Documentation: no limitations . Information obtained by: patient . HPI Narrative: 76-year-old female with history of chronic malnutrition, pulmonary hypertension, COPD, hypertension, adult failure to thrive in the past, here with chief complaint of fall. Patient notes she was using a walker and tripped and fell backward. She did strike her head on the ground. Patient notes significant pain in her low midline back. She was not able to ambulate after the fall secondary to this pain. Also of note was neck pain when EMS were attempting to move the patient. She has no associated chest pain or abdominal pain. No headache. Fall occurred just prior to arrival. Related Data Home Medications Medication Instructions Recorded Confirmed lutein 6 mg capsule 6 mg PO DAILY 10/01/18 05/13/22 calcium carbonate 600 mg calcium 600 mg PO BID #90 tabs 07/29/19 05/13/22 (1,500 mg) tablet (Calcium) cholecalciferol (vitamin D3) 50 2,000 unit PO DAILY #90 caps 09/27/20 05/13/22 mcg (2,000 unit) capsule acetaminophen 500 mg capsule 500 mg PO TID PRN pain 04/02/21 05/13/22 zoledronic acid 4 mg intravenous 4 mg IV .Once a Year #1 ea 04/02/21 05/13/22 solution duloxetine 30 mg capsule,delayed See Rx Instructions .Route 12/13/21 05/13/22 release .COMPLEX #45 caps lisinopril 10 mg tablet 10 mg PO DAILY #90 tab-caps 02/08/22 05/13/22 aspirin 81 mg tablet,delayed 81 mg PO DAILY #1 tab 03/25/22 05/13/22 release tramadol 50 mg tablet 50 mg PO TID PRN Back Pain 05/13/22 05/13/22 Previous Rx's Medication Instructions Recorded calcium carbonate 600 mg calcium 600 mg PO BID #90 tabs 07/29/19 (1,500 mg) tablet (Calcium) cholecalciferol (vitamin D3) 50 2,000 unit PO DAILY #90 caps 09/27/20 mcg (2,000 unit) capsule zoledronic acid 4 mg intravenous 4 mg IV .Once a Year #1 ea 04/02/21 solution duloxetine 30 mg capsule,delayed See Rx Instructions .Route 12/13/21 release .COMPLEX #45 caps lisinopril 10 mg tablet 10 mg PO DAILY #90 tab-caps 02/08/22 aspirin 81 mg tablet,delayed 81 mg PO DAILY #1 tab 03/25/22 release Allergies Allergy/AdvReac Type Severity Reaction Status Date / Time lorazepam Allergy Severe Visual Verified 05/13/22 13:26 Disturbances Penicillins Allergy Unknown Verified 05/13/22 13:26 General Stated Complaint: Trauma FRANCISCA: 3 Review of Systems All systems reviewed & are unremarkable except as noted in HPI and below Constitutional Constitutional: Denies fever(s) and Denies weakness Musculoskeletal Musculoskeletal: Reports system reviewed and no additional complaints, except as documented Neurologic Neurologic: Denies sensory deficit and Denies weakness PFSH All Active Problems (Updated 05/13/22 @ 16:00 by Chip Bang MD) Closed sacral fracture (Acute) Fall (Acute) Diarrhea (Chronic) Compression fracture (Chronic) Tobacco dependence (Chronic) Weight loss (Chronic) Adult failure to thrive (Chronic) Osteoporosis (Chronic) Multiple fractures Essential hypertension (Chronic) COPD (chronic obstructive pulmonary disease) (Chronic) Pulmonary hypertension (Chronic) Chronic malnutrition (Chronic) Vitamin D deficiency (Chronic) Low back pain (Chronic) Chronic hyponatremia (Chronic) Medical History Alcohol use disorder Alcoholic gastritis with bleeding Basal cell carcinoma of nose Compression fracture of vertebra Femoral condyle fracture Bilateral Lumbar compression fracture Thoracic compression fracture (~11/2020) Upper GI bleed Surgical History History of basal cell carcinoma (BCC) excision History of esophagogastroduodenoscopy (EGD) (01/09/12) History of tubal ligation Hx of cataract surgery S/P Mohs surgery for basal cell carcinoma S/P ORIF (open reduction internal fixation) fracture (03/28/20) of Bilateral Distal Femur Fracture with Intercondylar split Family History Mother Alcohol abuse Father Heart disease Social History Smoking/Tobacco Use Status: Current every day Tobacco Type: cigarettes Smoking packs per day: 0.5 Smoking cigarettes per day: 10.0 Years smoked: 50 Smoking pack-years: 25.00 Tobacco: How many years used: 50 Counseling given: provider counseling Smoking risk assessment performed?: Yes Alcohol Intake: current Alcohol Intake frequency: 0-2 drinks per day Alcohol type: wine Counseling provided: provider counseling Drug use: Never Substance use type: does not use Household members: spouse and other Housing: house Number of Children: 4 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 [employer] Pets and animals: Yes Pets and animals: dog(s) What is your relationship status?: Panel score (0-1 are the most socially isolated patients): 1 What type of physical activity do you participate in: none Special lissy needs: No Do you feel safe at home: Yes Do you feel safe in your relationship?: Yes Exam Const General: cooperative and no acute distress [facility] Head: normocephalic and atraumatic Eyes Conjunctivae: normal conjunctivae Sclera: normal sclerae Neck Neck: trachea midline and supple Resp Auscultation: clear to auscultation bilaterally, no rales, no rhonchi and no wheezes Cardio Jugular venous pressure: no JVD Rate: regular rate and not tachycardic Rhythm: regular rhythm GI Palpation: soft, not firm, no guarding, no masses, not rigid and nontender Back/Spine/Pelvis Cervical Spine: collar present and No step off deformity Thoracic/Lumbar Spine: No thoracic spinal tenderness and lumbar spinal tenderness Sacrum: tenderness Skin General skin exam: no rashes or lesions noted Neuro General: patient alert, patient awake, patient oriented x3 and tone normal Extrem General: no edema Psych Appearance: grossly normal Mental Status: mental status grossly normal Course Vital Signs Vital signs: Vital Signs Temperature 36.6 C 05/13/22 12:37 Pulse 80 05/13/22 12:37 Respiratory Rate 18 05/13/22 12:37 Blood Pressure 195/72 H 05/13/22 12:37 Pulse Oximetry 95 05/13/22 12:37 Temperature 36.6 C 05/13/22 12:37 Temperature Source Tympanic 05/13/22 12:37 Pulse 80 05/13/22 12:37 Respiratory Rate 18 05/13/22 12:37 Respiratory Effort 05/13/22 13:31 Blood Pressure 195/72 H 05/13/22 12:37 Pulse Oximetry 95 05/13/22 12:37 Oxygen Delivery Method Room Air 05/13/22 12:37 Oxygen Flow Rate 0 05/13/22 12:37 Pain Level 7 05/13/22 12:37 Lab/Test Results Lab/Test Results: Laboratory Tests Range/Units 05/13/22 05/13/22 05/13/22 13:22 13:22 13:22 WBC (4.4-10.8) 10^3/uL RBC (3.93-5.22) 10^6/uL Hgb (11.2-15.7) g/dL Hct (36.0-46.0) % MCV (80-95) fL MCH (27.0-33.0) pg MCHC (32.0-36.0) % RDW (11.7-14.6) % Plt Count (130-400) 10^3/uL MPV (8.0-11.0) fL Immature Gran % Neutrophils % Lymphocytes % Monocytes % Eosinophils % Basophils % Nucleated RBC % (0.0-0.3) % Absolute Neutrophils (1.2-6.7) 10^3/uL Absolute Lymphocytes (1.2-3.4) 10^3/uL Absolute Monocytes (0.1-0.8) 10^3/uL Absolute Eosinophils (0.0-0.7) 10^3/uL Absolute Basophils (0.0-0.2) 10^3/uL PT (9.3-11.0) sec 10.3 INR (0.9-1.1) 1.0 APTT (21.0-27.5) sec 24.7 Sodium (136-145) mmol/L 134 L Potassium (3.5-5.1) mmol/L 4.9 Chloride (98-107) mmol/L 97 L Carbon Dioxide (21.0-32.0) mmol/L 31.7 Anion Gap (3-11) mmol/L 5.3 BUN (7-18) mg/dL 18 Creatinine (0.55-1.02) mg/dL 0.6 Est GFR (CKD-EPI 2020) (mL/min/1.73m2) 92.39 Glucose (74-106) mg/dL 88 Calcium (8.5-10.1) mg/dL 8.9 Magnesium (1.8-2.4) mg/dL 1.9 Total Bilirubin (0.2-1.0) mg/dL 0.5 AST (15-37) U/L 35 ALT (14-59) U/L 23 Alkaline Phosphatase (46-116) U/L 72 Total Protein (6.4-8.2) g/dL 7.4 Albumin (3.4-5.0) g/dL 4.2 Patient ABO/Rh A Negative Antibody Screen NEGATIVE Range/Units 05/13/22 13:22 WBC (4.4-10.8) 10^3/uL 15.44 H RBC (3.93-5.22) 10^6/uL 3.66 L Hgb (11.2-15.7) g/dL 12.0 Hct (36.0-46.0) % 36.5 MCV (80-95) fL 100 H MCH (27.0-33.0) pg 32.8 MCHC (32.0-36.0) % 32.9 RDW (11.7-14.6) % 12.8 Plt Count (130-400) 10^3/uL 317 MPV (8.0-11.0) fL 9.2 Immature Gran % 0.9 Neutrophils % 77.4 Lymphocytes % 13.5 Monocytes % 7.6 Eosinophils % 0.3 Basophils % 0.3 Nucleated RBC % (0.0-0.3) % 0.0 Absolute Neutrophils (1.2-6.7) 10^3/uL 11.95 H Absolute Lymphocytes (1.2-3.4) 10^3/uL 2.08 Absolute Monocytes (0.1-0.8) 10^3/uL 1.17 H Absolute Eosinophils (0.0-0.7) 10^3/uL 0.05 Absolute Basophils (0.0-0.2) 10^3/uL 0.05 PT (9.3-11.0) sec INR (0.9-1.1) APTT (21.0-27.5) sec Sodium (136-145) mmol/L Potassium (3.5-5.1) mmol/L Chloride (98-107) mmol/L Carbon Dioxide (21.0-32.0) mmol/L Anion Gap (3-11) mmol/L BUN (7-18) mg/dL Creatinine (0.55-1.02) mg/dL Est GFR (CKD-EPI 2020) (mL/min/1.73m2) Glucose (74-106) mg/dL Calcium (8.5-10.1) mg/dL Magnesium (1.8-2.4) mg/dL Total Bilirubin (0.2-1.0) mg/dL AST (15-37) U/L ALT (14-59) U/L Alkaline Phosphatase (46-116) U/L Total Protein (6.4-8.2) g/dL Albumin (3.4-5.0) g/dL Patient ABO/Rh Antibody Screen
[2022-05-13] MEDS: Acetaminophen 500 MG TAB PO (16:08)
== END 2022-05-13 16:22 | disposition home or self-care (01) ==
PROVIDERS: Emergency Provider Student in an Organized Health Care Education/Training Program; PCP Nurse Practitioner Family
DX: S32.10XA Unspecified fracture of sacrum, initial encounter for closed fracture (principal); G89.11 Acute pain due to trauma; M54.2 Cervicalgia; J44.9 Chronic obstructive pulmonary disease, unspecified; I10 Essential (primary) hypertension; Z79.82 Long term (current) use of aspirin; W01.0XXA Fall on same level from slipping, tripping and stumbling without subsequent striking against object, initial encounter
CPT/HCPCS: 36415; 80053; 86850; 86900; 86901; 99284; 70450; 72125; 72128; 72131; 83735; 85025; 85610; 85730; 99283